=== PATIENT | male | born 1930 | race Caucasian/White ===

== ENCOUNTER 2017-03-30 08:00 | Inpatient (IN) | payer MEDICARE, OTHER ==
[~2017-03-30] VITALS: Ht 182.9 cm; Wt 98.9 kg
[~2017-03-30 08:00] MED LIST: AMLODIPINE BESYL5 MG PO; ATENOLOL50 MG PO; FUROSEMIDE20 MG PO; ISOSORBIDE MONO60 MG PO; POTASSIUM CHLO10 MEQ PO; RAMIPRIL10 MG PO
--- OUTSIDE RECORDS SUMMARY | 2017-03-30 08:04 | XMS | Clinical Summary ---
Demographics + + + | Address | [address] | | | [place] [address] | + + + | Home Phone | | + + + | Preferred Language | Unknown | + + + | Marital Status | | + + + | Methodist Affiliation | NON | + + + | Race | White | + + + | Ethnic Group | Not or | + + + Author + + + | Author | [facility] | + + + | Organization | [facility] | + + + | Address | Unknown | + + + | Phone | Unavailable | + + + Support +------+ + + + +-------+ | Name | Relationship | Address | Phone | +------+ + + + +-------+ ECON | [address] | | [place] | [address] | +------+ + + + +-------+ Care Team Providers + +------+-------+ | Care Almond Grinder Name | Role | Phone | + +------+-------+ | Asael Mendez MD | PP | tel | + +------+-------+ Source Comments JENNIFER is fully live on both EpicCare Ambulatory and EpicCare InPatient.[facility] Allergies + + + + + + | Active Allergy | Reactions | Severity | Noted | Comments | | | | | Date | | + + + + + + | Doxazosin Mesylate | Unknown | | 06/02/19 | Pt does not recall | | | | | 16 | | + + + + + + | Wyrpfli-Wrc-Lvk | Arthralgia | | 06/02/19 | | | Reductase Inhibitors | | | 16 | | + + + + + + | Tetracycline | Unknown | | 06/02/19 | Blisters | | | | | 16 | | + + + + + + | Tomato | Unknown | | 06/02/19 | Blisters | | | | | 16 | | + + + + + + Current Medications + + +---------+---------+------+------+-------+ | Prescription | Sig. | Disp. | Refills | Star | End | Statu | | | | | | t | Date | s | | | | | | Date | | | + + +---------+---------+------+------+-------+ | atenolol 50 mg | Take 50 mg by mouth | | 0 | 02/1 | | Activ | | oral tablet | two times daily. | | | 20 | | e | | | | | | 16 | | | + + +---------+---------+------+------+-------+ | furosemide 20 mg | Take 20 mg by mouth | | 0 | 01/0 | | Activ | | oral tablet | once daily. | | | 20 | | e | | | | | | 16 | | | + + +---------+---------+------+------+-------+ | potassium chloride | Take 10 mEq by mouth | | 0 | 03/0 | | Activ | | SR 10 mEq oral | once daily. | | | /20 | | e | | capsule, extended | | | | 16 | | | | release | | | | | | | + + +---------+---------+------+------+-------+ | amLODIPine 5 mg | Take 10 mg by mouth | | 0 | 03/1 | | Activ | | oral tablet | once daily. | | | 5/20 | | e | | | | | | 16 | | | + + +---------+---------+------+------+-------+ | ramipril 10 mg | Take 10 mg by mouth | | | | | Activ | | oral capsule | once daily. | | | | | e | + + +---------+---------+------+------+-------+ | ISOSORBIDE ORAL | Take 60 mg by mouth | | | | | Activ | | | once daily. | | | | | e | + + +---------+---------+------+------+-------+ | aspirin EC 81 mg | Take 81 mg by mouth | | | | | Activ | | oral tablet,delayed | once daily. | | | | | e | | release (DR/EC) | | | | | | | + + +---------+---------+------+------+-------+ | nitroglycerin 0.4 | Place 0.4 mg under | | | | | Activ | | mg sublingual | tongue every five | | | | | e | | tablet, sublingual | minutes as needed | | | | | | | | for chest pain. | | | | | | | | Place under tongue | | | | | | | | and allow to | | | | | | | | dissolve. | | | | | | | | Administer every 5 | | | | | | | | minutes, max of 3 | | | | | | | | doses in 15 minutes. | | | | | | + + +---------+---------+------+------+-------+ | omeprazole 20 mg | Take 1 capsule by | | | 03/2 | | Activ | | oral capsule,delayed | mouth. | | | 2/20 | | e | | release(DR/EC) | | | | 16 | | | + + +---------+---------+------+------+-------+ | oxyCODONE, | Take 1 to 2 tablets | 30 | 0 | 04/0 | | Activ | | immediate release, 5 | by mouth every six | tablet | | 9/20 | | e | | mg oral tablet | hours as needed. | | | 16 | | | + + +---------+---------+------+------+-------+ | docusate sodium | Take 1 capsule by | 60 | 0 | 04/0 | | Activ | | (COLACE) 100 mg oral | mouth two times | capsule | | / | | e | | capsule | daily. Please | | | 16 | | | | | continue to take | | | | | | | | this while on | | | | | | | | narcotic pain | | | | | | | | medications to help | | | | | | | | prevent | | | | | | | | constipationPlease | | | | | | | | hold for loose | | | | | | | | stools | | | | | | + + +---------+---------+------+------+-------+ Active Problems + + + | Problem | Noted Date | + + + | Melanoma of scalp (HCC) | 06/02/2015 | + + + Family History + + +------+ + | Medical History | Relation | Name | Comments | + + +------+ + | Cancer | Daughter | | colon | + + +------+ + | Cancer | Father | | | + + +------+ + | Asthma | Grandchil | | | | | d | | | + + +------+ + | Asthma | Grandchil | | | | | d | | | + + +------+ + | Cancer | Maternal | | | | | Aunt | | | + + +------+ + | Diabetes | Maternal | | | | | Cousin | | | + + +------+ + | Diabetes | Maternal | | | | | Grandfath | | | | | er | | | + + +------+ + | Stroke | Maternal | | | | | Grandfath | | | | | er | | | + + +------+ + | Heart Disease | Maternal | | | | | Grandmoth | | | | | er | | | + + +------+ + | Cancer | Mother | | | + + +------+ + | Cancer | Paternal | | | | | Cousin | | | + + +------+ + + +------+--------+ + | Relation | Name | Status | Comments | + +------+--------+ + | Daughter | | | | + +------+--------+ + | Father | | | | + +------+--------+ + | Grandchild | | | | + +------+--------+ + | Grandchild | | | | + +------+--------+ + | Maternal Aunt | | | | + +------+--------+ + | Maternal Cousin | | | | + +------+--------+ + | Maternal Grandfather | | | | + +------+--------+ + | Maternal Grandmother | | | | + +------+--------+ + | Mother | | | | + +------+--------+ + | Paternal Cousin | | | | + +------+--------+ + Social History + + + +--------+ + | Tobacco Use | Types | Packs/Day | Years | Date | | | | | Used | | + + + +--------+ + | Former Smoker | Cigarettes | 2 | | Quit: 06/01/1956 | + + + +--------+ + + +---+---+ + | Smokeless Tobacco: | | | Quit: | | Former User | | | 03/13/18 | | | | | 65 | + +---+---+ + + + | Comments: 1/2 can/day | + + + + +---------+ + | Alcohol Use | Drinks/We | oz/Week | Comments | | | ek | | | + + +---------+ + | Yes | 1 | 0.6 | | | | Standard | | | | | drinks or | | | | | | | | | | equivalen | | | | | t | | | + + +---------+ + + + + | Sex Assigned at | Date Recorded | | | | + + + | Not on file | | + + + Last Filed Vital Signs + + + + | Vital Sign | Reading | Time Taken | + + + + | Blood Pressure | 152/72 | 06/30/2015 12:59 PM PDT | + + + + | Pulse | 55 | 06/30/2015 12:59 PM PDT | + + + + | Temperature | 36.5 C (97.7 F) | 06/30/2015 12:59 PM PDT | + + + + | Respiratory Rate | 16 | 06/30/2015 12:59 PM PDT | + + + + | Oxygen Saturation | 92% | 06/20/2015 8:37 AM PDT | + + + + | Inhaled Oxygen | - | - | | Concentration | | | + + + + | Weight | 104.3 kg (230 lb) | 06/30/2015 12:59 PM PDT | + + + + | Height | 177.8 cm (5' 10") | 06/02/2015 4:05 PM PDT | + + + + | Body Mass Index | 33 | 06/30/2015 12:59 PM PDT | + + + + Plan of Treatment + + + + + | Health Maintenance | Due Date | Last Done | Comments | + + + + + | INFLUENZA VACCINE | | 01/02/2015, 12/14/2013, | | | (FLU SHOT) | 7 | 01/06/2010, Additional history | | | | | exists | | + + + + + Results Not on filefrom Last 3 Months
--- OUTSIDE RECORDS SUMMARY | 2017-03-30 08:04 | XMS | Clinical Summary ---
Demographics + + + | Address | [address] | | | [place] [address] | + + + | Home Phone | | + + + | Preferred Language | Unknown | + + + | Marital Status | | + + + | Anglican Affiliation | NON | + + + | Race | White | + + + | Ethnic Group | Not or | + + + Author + + + | Author | [facility] | + + + | Organization | [facility] | + + + | Address | Unknown | + + + | Phone | Unavailable | + + + Support +------+ + + + +-------+ | Name | Relationship | Address | Phone | +------+ + + + +-------+ ECON | [address] | | [place] | [address] | +------+ + + + +-------+ Care Team Providers + +------+-------+ | Care Supervisor In Charge Name | Role | Phone | + +------+-------+ | Asael Mendez MD | PP | tel | + +------+-------+ Source Comments JENNIFER is fully live on both EpicCare Ambulatory and EpicCare InPatient.[facility] Allergies + + + + + + | Active Allergy | Reactions | Severity | Noted | Comments | | | | | Date | | + + + + + + | Doxazosin Mesylate | Unknown | | 06/02/19 | Pt does not recall | | | | | 16 | | + + + + + + | Niascyf-Vyl-Usw | Arthralgia | | 06/02/19 | | [...]
[2017-03-30] MEDS ORDERED: ALTACE10 MG PO (08:30)
[2017-03-30] MEDS ORDERED: ECOTRIN325 MG PO (08:30)
--- OUTSIDE RECORDS SUMMARY | 2017-03-30 10:28 | XMS | Clinical Summary ---
Demographics + + + | Address | [address] | | | [place] [address] | + + + | Home Phone | | + + + | Preferred Language | Unknown | + + + | Marital Status | | + + + | Denominational Affiliation | NON | + + + | Race | White | + + + | Ethnic Group | Not or | + + + Author + + + | Author | [facility] | + + + | Organization | [facility] | + + + | Address | Unknown | + + + | Phone | Unavailable | + + + Support +------+ + + + +-------+ | Name | Relationship | Address | Phone | +------+ + + + +-------+ ECON | [address] | | [place] | [address] | +------+ + + + +-------+ Care Team Providers + +------+-------+ | Care Marketing Technology Specialist Name | Role | Phone | + +------+-------+ | Asael Mendez MD | PP | tel | + +------+-------+ Source Comments JENNIFER is fully live on both EpicCare Ambulatory and EpicCare InPatient.[facility] Allergies + + + + + + | Active Allergy | Reactions | Severity | Noted | Comments | | | | | Date | | + + + + + + | Doxazosin Mesylate | Unknown | | 06/02/19 | Pt does not recall | | | | | 16 | | + + + + + + | Tdowzqp-Fvi-Kiq | Arthralgia | | 06/02/19 | | [...]
[2017-03-30] MEDS ORDERED: ISOSORBIDE MONO30 MG PO (10:35)
[2017-03-30] MEDS ORDERED: NITROGLYCERIN0.4 MG SL (10:36)
[2017-03-30] MEDS ORDERED: ASPIRIN EC81 MG PO (10:40)
[2017-03-30] MEDS ORDERED: AMLODIPINE BESY10 MG PO (10:40)
--- NOTE | 2017-03-30 10:42 | NUR ---
MED REC COMPLETE WITH PHARMACY REFILL HISTORY.
--- NOTE | 2017-03-30 11:06 | NUR ---
PATIENT ADMITTED TO ROOM 122 ON OXYGEN AT 2L PER NASAL CANNULA. PATIENT ASSISTED UP TO THE BATHROOM AND VOIDED 300 MLS OF CLEAR YELLOW URINE. HE IS STEADY ON HIS FEET AND WAS NOT SOB WHEN UP TO THE BATHROOM. HE IS ORIENTED TO HIS ROOM AND ASSESSMENT COMPLETED BY THE RN AT THIS TIME. TELE PLACED ON THE PATIENT AND VITALS TAKEN. LUNCH ORDERED AND HOB ELEVATED. PULSE OX APPLIED. NO OPEN LESIONS FROM SHINGLES NOTED.
--- NOTE | 2017-03-30 13:18 | NUR ---
PATIENT'S OXYGEN INCREASED TO 3L PER NASAL CANNULA O2 SATURATIONS WAS RUNNING AT 96% ON 2L PER NC.
--- NOTE | 2017-03-30 13:50 | NUR ---
PT IS RESTING IN BED SAFELY WITH CALL LIGHT IN REACH AND EYES CLOSED, RESPERATIONS EVEN. PT WOKE UP FOR VITALS, ASKED FOR LIGHTS TO BE TURNED OFF, THEN FELL BACK ASLEEP.
--- NOTE | 2017-03-30 14:25 | NUR ---
O2 SATS 83% ON 3L OF OXYGEN, PATIENT'S OXYGEN IS INCREASED TO 4L OF OXYGEN AT THIS TIME.
--- NOTE | 2017-03-30 15:36 | NUR ---
PATIENT'S O2 SATS ARE 87% ON 4L OF OXYGEN PATIENT USES A CPAP WHILE ASLEEP AT NIGHT, HE IS CURRENTLY ASLEEP WITH HOB ELEVATED. RT NOTIFIED. LUNGS ARE CLEAR.
--- NOTE | 2017-03-30 17:53 | NUR ---
PT IS RESTING IN BED SAFELY WITH CALL LIGHT IN REACH. PT FINISHED DINNER AND ASKED FOR TRAY TO BE TAKEN AWAY. PT DID NOT NEED ANYTHING ELSE AT THE MOMENT
--- NOTE | 2017-03-30 18:10 | NUR ---
PATIENT WAS ADMITTED FROM ER THIS AM WITH HYPOXIA. HE WAS INITIALLY ADMITTED ON 2L OX OXYGEN BUT AFTER FALLING ASLEEP HIS NASAL CANNULA WAS INCREASED TO 4L DUE TO HISTORY OF SLEEP APNEA. HIS HAD SURGERY TODAY AT THIS FACILITY AND COULDN'T BRING IN HIS CPAP MACHINE SO RT WAS NOTIFIED AND WILL BRING A BIPAP MACHINE FOR HIM TO WEAR TONIGHT. HIS LUNGS ARE CLEAR AND HE GETS SOB WITH EXERTION. HE IS ALERT AND ORIENTED AND STEADY ON HIS FEET.
--- NOTE | 2017-03-30 20:00 | NUR ---
RECEIVED REPORT AT 1900, FOUND PT IN BED RESTING. PT HAD NO CONCERNS OR NEEDS AT THAT TIME.
--- NOTE | 2017-03-30 22:00 | NUR ---
V/S ARE WDL, ALL LOBES ARE CLEAR. PT O2 SATS HAVE BEEN STEADLY DECLINING SINCE ARRIVAL ON THE FLOOR. PT NOW IS ON 5L OF OW NC. PT DENIES SOB OR CHEST PAIN. BG WAS 184 AND PT RECEIVED 3 UNITS OF NOVOLOG. PT NOW IS ON C-PAP AND RESTING IN BED.
--- NOTE | 2017-03-31 00:30 | NUR ---
PT DENIES CHEST PAIN AND SOB. C-PAP IS ON. PT IS TRYING TO SLEEP AGAIN.
--- NOTE | 2017-03-31 02:34 | NUR ---
VITALS AND I&OS DONE AND CHARTED. PT NEEDS NOTHING ELSE AT THIS TIME. BEDSIDE TABLE AND CALL LIGHT WITHIN REACH.
--- NOTE | 2017-03-31 02:53 | NUR ---
PT IS SLEEPING. HR RATE IS SINUS DHRUV. UPPER 40'S.
--- NOTE | 2017-03-31 04:31 | NUR ---
PT IS SLEEPING AT THIS TIME.
--- NOTE | 2017-03-31 06:05 | NUR ---
V/S SO FAR HAVE BEEN WDL. PT AT START OF SHIFT O2 SATS KEPT DECREASING AND HE WAS PUT ON 5L OF O2 IN ORDER TO STAY ABOVE 90% SATS. MD HAWKINS IS AWARE. PT HAS BEEN USING C-PAP ALL NIGHT. ALL LOBES HAVE BEEN CLEAR. PT DENIES ANY PAIN. NO OTHER ISSUES NOTED SO FAR THIS SHIFT.
--- NOTE | 2017-03-31 07:17 | EKG ---
[facility] [address] [place] [address] Signed Sinus rhythm with 1st degree AV block Otherwise normal ECG When compared with ECG of 25-NOV-2015 10:14, premature ventricular complexes are no longer present Vent. rate has increased BY 28 BPM Confirmed by NIKITA BARTON MD ([id number]) on 03/31/2017 7:17:20 AM Electronically Signed By: NIKITA BARTON MD 03/31/17 0717 PATIENT NAME: KEVIN MALDONADO Electrocardiogram DATE OF : 30 PHYSICIAN: NIKITA BARTON MD REPORT #: [id number] REPORT IS CONFIDENTIAL AND NOT TO BE RELEASED WITHOUT AUTHORIZATION
--- NOTE | 2017-03-31 07:19 | EKG ---
[facility] [address] [place], [place] [address] Signed Sinus rhythm with 1st degree AV block Otherwise normal ECG When compared with ECG of 30-MAR-2017 08:10, (Unconfirmed) No significant change was found Confirmed by NIKITA BARTON MD ([id number]) on 03/31/2017 7:19:15 AM Electronically Signed By: NIKITA BARTON MD 03/31/17718 PATIENT NAME: KEVIN MALDONADO GLENDA Electrocardiogram DATE OF : 30 PHYSICIAN: NIKITA BARTON MD REPORT #: [id number] REPORT IS CONFIDENTIAL AND NOT TO BE RELEASED WITHOUT AUTHORIZATION
--- NOTE | 2017-03-31 07:28 | NUR ---
PATIENT TAKEN OFF THE BIPAP AT THIS TIME AND PLACED BACK ON 5L OF OXYGEN. PATIENT IS ALERT AND ORIENTED. DENIES ANY PAIN OR NEEDS AT THIS TIME. REPORT RECEIVED FROM AMARILIS HOWARD AT THIS TIME.
--- NOTE | 2017-03-31 08:01 | NUR ---
PT IS SITTING UP IN BED WAITING FOR HIS BLOOD SUGAR TO BE CHAECKED. CNA2 EUNICE CHECKED BLOOD SUGAR, AND PT IS NOW SITTING IN BED EATING HIS BREAKFAST.
--- NOTE | 2017-03-31 08:30 | NUR ---
PATIENT'S ACCUCHECK DONE AND HE IS SITTING UP IN THE ROOM EATING HIS BREAKFAST. AM MEDICATION GIVEN AND ASSESSMENT COMPLETED. PATIENT DENIES ANY PAIN AT THIS TIME AND REMAINS ON OXYGEN AT 2L PER NC AT THIS TIME.
--- NOTE | 2017-03-31 09:32 | NUR ---
PT IS RESTING IN BED SAFLEY WITH CALL LIGHT IN REACH. PT ASKED FOR MORE ICE WATER
--- NOTE | 2017-03-31 10:00 | NUR ---
PATIENT'S OXYGEN INCREASED TO 4L PER NC AT THIS TIME. PATIENT'S O2 AT 4L IS NOW AT 89%
--- NOTE | 2017-03-31 11:30 | NUR ---
PATIENT'S ACCUCHECK DONE AND 1 UNIT OF INSULIN GIVEN SQ. PATIENT'S FAMILY VISITING AT THIS TIME. LUNCH TO THE PATIENT AT THIS TIME.
--- NOTE | 2017-03-31 13:04 | NUR ---
PT SHAVED, SHOWERED, AND BRUSHED TEETH ALL BY SELF. PT IS NOW SITTING UP IN CHAIR SAFELY WITH CALL LIGHT IN REACH. PT ASKED FOR CLEAN SOCKS
--- NOTE | 2017-03-31 13:04 | NUR ---
PATIENT UP TO THE SHOWER WITH COMPUTER ENGINEERING TECHNOLOGIST
--- NOTE | 2017-03-31 13:36 | NUR ---
PATIENT RESTING IN THE BED. PATIENT'S O2 INCREASED TO 4L PER NC AT THIS TIME. O2 SAT ON THE 4L UP TO 89% RT NOTIFIED.
--- NOTE | 2017-03-31 14:12 | NUR ---
PT IS RESTING IN BED SAFELY WITH CALL LIGHT IN REACH. PT ASKED FOR LIGHTS TO BE TURNED OF SO HE COULD TAKE A NAP
--- NOTE | 2017-03-31 14:57 | NUR ---
PATIENT CURRENTLY DENIES ANY SOB, HE REMAINS ON OXYGEN AT 4L PER NC. SATS ARE 93% AT THIS TIME.
--- NOTE | 2017-03-31 18:00 | NUR ---
PT IS RESTING IN BED SAFELY WITH CALL LIGHT IN REACH. PT ASKED FOR DINNER TRAY TO BE TAKEN AWAY.
--- NOTE | 2017-03-31 19:15 | NUR ---
BEDSIDE REPORT RECEIVED FROM ANITA HANSEN, PT ON 4L OXYGEN BY NASAL CANNULA, LYING IN BED. PT ON TELE 7. IV SALINE LOCKED. NO REQUESTS AT THIS TIME. CALL LIGHT NEXT TO PT.
--- NOTE | 2017-03-31 20:16 | NUR ---
RN UPDATED WHITEBOARD
--- NOTE | 2017-03-31 20:47 | NUR ---
PT ASSESSMENT COMPLETE, LUNGS CLEAR THROUGHOUT ALL LOBES, PT RECEIVED BREATHING TREATMENT FROM RT, NOW ON BIPAP AT 45% OXYGEN. HR SINUS BRADYCARDIA ON TELE 7. BOWEL TONES ACTIVE X 4. TINGLING NOTED BILATERALLY IN FEET. VITALS COMPLETE AT THIS TIME, TEMPERATURE 99.0, PT ENCOURAGED TO USE INCENTIVE SPIROMETER. PT COUGHING, STATES PRODUCTIVE SOMETIMES. ADMINISTERED 1 UNIT NOVOLOG FOR CBG 158. PT ALERT AND ORIENTED, CALL LIGHT IN REACH, URINAL EMPTIED. LIGHTS OFF IN ROOM.
--- NOTE | 2017-03-31 23:12 | NUR ---
DI HERE TO TAKE PT FOR A CT SCAN. PT ON 4L/NC. PROCEDURE EXPLAINED, PT COOPERATIVE. PT TAKEN VIA W/C W O2
--- NOTE | 2017-03-31 23:18 | NUR ---
PT OUT OF ROOM, WITH IMAGING FOR CT.
--- NOTE | 2017-03-31 23:30 | NUR ---
PT BACK IN ROOM, ON 4L OXYGEN BY NASAL CANNULA SPO2 92%, PT DOES NOT WANT TO USE THE CPAP AT THIS TIME, HR 63. PT GIVEN CALL LIGHT, LIGHTS OFF IN ROOM.
--- NOTE | 2017-03-31 23:46 | NUR ---
PHONE CALL FROM DR. SANFORD, STATES PT HAS PE, WILL START ON 100 MG LOVENOX BID.
--- NOTE | 2017-04-01 00:02 | NUR ---
ADMINISTERED LOVENOX 100 MG, PROVIDED EDUCATION TO PT ON PE, PREVENTING BLOOD CLOTS. PT ON 4L OXYGEN BY NASAL CANNULA, 95% SPO2, HR 57. URINAL EMPTIED, 200 ML CLEAR YELLOW URINE. PT HAS CALL LIGHT IN REACH, WILL CONTINUE TO MONITOR.
--- NOTE | 2017-04-01 00:42 | NUR ---
IN PT ROOM FOR ASSESSMENT, PT DOES COMPLAIN OF SOME SOB, REQUESTING BREATHING TREATMENT. PTS LUNGS SOUND CLEAR THROUGHOUT ALL LOBES, DIMINISHED WITH NORMAL BREATHS, CLEAR ENTRY WITH DEEP BREATHING THROUGHOUT ALL LOBES. IVF INFUSING AT THIS TIME WNL AT 125 ML/HR, LINE FLUSHES WELL. BOWEL TONES ACTIVE X 4, ABDOMEN SOFT. PT CONTINUES IN SINUS BRADYCARDIA HR 59 ON TELE 7. CALL LIGHT IN REACH, LIGHTS OFF IN ROOM.
--- NOTE | 2017-04-01 00:57 | NUR ---
RT IN PT ROOM FOR BREATHING TREATMENT.
--- NOTE | 2017-04-01 02:30 | NUR ---
CHECKED ON PT, PT SPO2 86% ON 4L HUMIDIFIED OXYGEN BY NC. PT SPO2 88% ON AWAKENING. PT REFUSES TO USE HOSPITALS BIPAP MACHINE DESPITE EDUCATION. PHONE CALL TO RT CL, INSTRUCTED TO PUT PT ON OXYMASK, PT CONTINUES 88% WITH OXYMASK. INCREASED SPO2 TO 6L HUMIDIFIED, PT AT 90% OXYGEN, RT CL INSTRUCTED TO PLACE PT ON NON-HUMIDIFIED OXYGEN AT 6L BY OXYMASK, PT NOW SATURATING 92% ON 6L OXYMASK.
--- NOTE | 2017-04-01 03:29 | NUR ---
RN IN ROOM
--- NOTE | 2017-04-01 03:40 | NUR ---
DR. SANFORD UPDATED VIA TELEPHONE REGARDING PT'S TITRATION OF OXYGEN, REFUSAL TO WEAR BIPAP. ORDER TO TITRATE OXYGEN >90%, TO RECHECK SATURATION WITH DIFFERENT PROBE. TRINH HERNANDEZ CHECKED SPO2 WITH ALTERNATIVE OXYGEN PROBE, 91% ON 6L OXYMASK.
--- NOTE | 2017-04-01 04:56 | NUR ---
PT IS SLEEPING AT THIS TIME, EYES CLOSED SPO2 91% ON 6L BY OXYMASK. BREATHING IS NON-LABORED, EQUAL CHEST RISE BILATERALLY, HR 50. LIGHTS OFF IN ROOM.
--- NOTE | 2017-04-01 06:49 | NUR ---
PT SLEEPING, BREATHING IS NON-LABORED, SPO2 90% ON 6L BY OXYMASK. PT ALLOWED TO SLEEP HAS NOT SLEPT MUCH THROUGHOUT SHIFT. HR IS 56 AT THIS TIME, ON TELE 7. LIGHTS OFF IN ROOM.
--- NOTE | 2017-04-01 10:17 | NUR ---
PT IS RESTING IN BED SAFELY WITH CALL LIGHT IN REACH. PT ASKED TO SHOWER AFTER LUNCH
[2017-04-01] MEDS ORDERED: ELIQUIS5 MG PO (13:10)
--- NOTE | 2017-04-01 15:21 | NUR ---
PT SHOWERED WITH NO ASSISTANCE, TRINH ANDERSON CHANGED LINENS. PT WALKED ONE FULL LAP, ACCOMPANIED BY TRINH ANDERSON. PT IS NOW BACK IN BED WITH CALL LIGHT IN REACH
--- NOTE | 2017-04-01 18:02 | NUR ---
sob improved - denies pain, o2 2l nc. PE - meds changed to eloquis po. pt amb in [facility] with 02 if. aox3 plan for mon/ d/c to home.
--- NOTE | 2017-04-01 18:25 | NUR ---
PT IS RESTING IN BED SAFELY WITH CALL LIGHT IN REACH. PT DID NOT NEED ANYTHING AT THE MOMENT
--- NOTE | 2017-04-01 21:36 | NUR ---
PATIENT RESTING COMFORTABLY IN BED, BREATHING IS EVEN AND UNLABORED. DENIES NEEDS AT THIS TIME. O2 SATURATION IS 91% ON CPAP WITH 2L O2. ASSESSMENT DONE, MEDICATIONS GIVEN. CALL LIGHT WITHIN REACH.
--- NOTE | 2017-04-02 00:54 | NUR ---
PATIENT RESTING COMFORTABLY IN BED, BREATHING IS EVEN AND UNLABORED. O2 SATURATION IS 95% ON CPAP, PULSE IS 58. CALL LIGHT WITHIN REACH.
--- NOTE | 2017-04-02 02:55 | NUR ---
PATIENT RESTING COMFORTABLY IN BED, BREATHING IS EVEN AND UNLABORED. O2 SATURATION IS 92% ON CPAP, 2L O2. PULSE IS 59. CALL LIGHT WITHIN REACH.
--- NOTE | 2017-04-02 05:05 | NUR ---
PATIENT RESTING COMFORTABLY IN BED, BREATHING IS EVEN AND UNLABORED. O2 SATURATION IS 91% ON 2L VIA CPAP. DENIES NEEDS AT THIS TIME. VITALS/I&O DONE. CALL LIGHT WITHIN REACH.
--- NOTE | 2017-04-02 05:09 | NUR ---
PATIENT'S NIGHT WAS UNEVENTFUL. HE HAS BEEN RESTING COMFORTABLY IN BED THROUGHOUT SHIFT. VSS, URINE OUTPUT QS. NO COMPLAINTS OF PAIN. REQUIRES 2L O2 WITH CPAP AT NIGHT TO MAINTAIN SATURATIONS >90%. PATIENT IS 1PA, IV IS SALINE LOCKED. NO ACUTE CHANGES FROM BEGINNING OF SHIFT.
--- NOTE | 2017-04-02 07:03 | NUR ---
bedside report from [facility] rn. pt denies needs, rested well with home cpap on in night. 02 2l nc sats above 90.
--- NOTE | 2017-04-02 08:31 | NUR ---
PATIENT UP EATING HIS BREAKFAST ON THE SIDE OF HIS BED. SET HIM FOR A SHOWER LATER.
--- NOTE | 2017-04-02 09:14 | NUR ---
PT NEEDED HIS ARM WRAPPED BEFORE HE TOOK A SHOWER.
--- NOTE | 2017-04-02 09:31 | NUR ---
pt up in at this time - meds delayed.
--- NOTE | 2017-04-02 10:43 | NUR ---
PT UP IN AFTER SHOWER - DENIES NEEDS. BREATHING UNLABORED, DENIES PAIN.
--- NOTE | 2017-04-02 11:49 | NUR ---
in pt room with Dr. Alcantara - and pt and his son. Discussed dc with new med and home o2.
[2017-04-02] MEDS ORDERED: ELIQUIS5 MG PO (12:04)
--- NOTE | 2017-04-02 14:50 | NUR ---
pt reported had the flu shot at [facility] and admission notes reflect that.
== END 2017-04-02 14:25 | disposition home or self-care (01) | DRG 175 ==
LOC: ED 08:00 → MS 08:02
PROVIDERS: ADMIT Internal Medicine
DX: I26.92 Saddle embolus of pulmonary artery without acute cor pulmonale (principal); J96.01 Acute respiratory failure with hypoxia; I51.89 Other ill-defined heart diseases; R73.03 Prediabetes; I25.10 Atherosclerotic heart disease of native coronary artery without angina pectoris; I12.9 Hypertensive chronic kidney disease with stage 1 through stage 4 chronic kidney disease, or unspecified chronic kidney disease; N18.9 Chronic kidney disease, unspecified; G47.33 Obstructive sleep apnea (adult) (pediatric); Z95.5 Presence of coronary angioplasty implant and graft; Z87.891 Personal history of nicotine dependence; Z85.828 Personal history of other malignant neoplasm of skin; Z79.82 Long term (current) use of aspirin; Z79.899 Other long term (current) drug therapy; Z88.1 Allergy status to other antibiotic agents; Z88.0 Allergy status to penicillin
CPT/HCPCS: 36415; 71045; 71260; 80048; 80053; 80069; 81001; 83880; 84484; 85025; 85379; 85610; 85651; 93005; 93010; 94640; 94660; 94761; 94762; 96372; 99285; G0378; J1650; J7120; Q9967

== ENCOUNTER 2018-07-08 19:47 | Emergency (ER) | payer MEDICARE, OTHER ==
[~2018-07-08] VITALS: Ht 182.9 cm; Wt 103.0 kg
--- OUTSIDE RECORDS SUMMARY | ~2018-07-08 | XMS | Clinical Summary ---
Demographics + + + | Address | [address] | | | [place] [address] | + + + | Home Phone | | + + + | Preferred Language | Unknown | + + + | Marital Status | | + + + | Latter Day Affiliation | NON | + + + | Race | White | + + + | Ethnic Group | Not or | + + + Author + + + | Author | [facility] | + + + | Organization | [facility] | + + + | Address | Unknown | + + + | Phone | Unavailable | + + + Support + + + + + | Name | Relationship | Address | Phone | + + + + + | BLAIR DOUGLASS | ECON | [address] | | | | | [place] | | | | | [address] | | + + + + + Care Team Providers + +------+ + | Care Pesticide Applicator Name | Role | Phone | + +------+ + | Asael Mendez MD | PP | | + +------+ + Source Comments JENNIFER is fully live on both [facility] and [facility]Patient.[facility] Allergies + + + + + + | Active Allergy | Reactions | Severity | Noted | Comments | | | | | Date | | + + + + + + | Doxazosin Mesylate | Unknown | | 06/02/19 | Pt does not recall | | | | | 16 | | + + + + + + | Xqheqxf-Xmy-Prw | Arthralgia | | 06/02/19 | | [...] | two times daily. | | | 11/30 | | e | | | | [...] oral | once daily. | | | 20 | | e | | capsule, extended [...] mouth two times | capsule | | 11/30 | | e | | capsule | [...] | + + + + + | Pneumococcal (Adult) | | | | | (1 of 2 - PCV13) | 6 | | | + + + + + | Influenza (Flu) | | | | | vaccination (#1) | 8 | | | + + + + + Results Not on filefrom Last 3 Months Insurance + +--------+ +--------+ + + | Payer | Benefi | Subscriber | Type | Phone | Address | | | t Plan | ID | | | | | | / | | | | | | | Group | | | | | + +--------+ +--------+ + + | MEDICARE | MEDICA | xxxxxxxxxx | Medica | [phone]- | [address] | | | RE A & | | re | [address] | [place] [address] | | | B | | | | | + +--------+ +--------+ + + | MODA MEDICARE | MODA | xxxxxxxxx | POS | +1- | [address] [address] | | SUPPLEMENT | MEDICA | | | [phone] | [place] [address] | | | RE | | | | | | | SUPPLE | | | | | | | MENT | | | | | + +--------+ +--------+ + + + +--------+ +--------+ + + | Guarantor Name | Accoun | Relation to | Date | Phone | Billing Address | | | t Type | Patient | of | | | | | | | | | | + +--------+ +--------+ + + | STAN DOUGLASS | Person | Self [birth year] | Work: | [address] | | | [address] | | 1931 | +- | [place] [address] | | | janet | | | [phone] Home: | | | | | | | | | | | | | | +- | | | | | | | [phone] | | + +--------+ +--------+ + +
--- OUTSIDE RECORDS SUMMARY | ~2018-07-08 | XMS | Clinical Summary ---
Demographics + + + | Address | [address] | | | [place] [address] | + + + | Home Phone | | + + + | Preferred Language | Unknown | + + + | Marital Status | | + + + | Sikhism Affiliation | 1069 | + + + | Race | Unknown | + + + | Ethnic Group | Unknown | + + + Author + + + | Author | [facility] | + + + | Organization | [facility] | + + + | Address | Unknown | + + + | Phone | Unavailable | + + + Support + + + + + | Name | Relationship | Address | Phone | + + + + + | Mikki Douglass | ECON | [place] | | | | | [address] | | + + + + + | Jameel Douglass | ECON | Unknown | | + + + + + Care Team Providers + +------+ + | Care Steamer Operator Name | Role | Phone | + +------+ + | Rosanne White | PP | | + +------+ + Allergies + + + + + + | Active Allergy | Reactions | Severity | Noted | Comments | | | | | Date | | + + + + + + | Doxazosin | Other (See Comments) | Medium | 11/25/19 | Unsure of | | | | | 16 | reaction, "has been | | | | | | a long time" | + + + + + + | Penicillin G | Other (See Comments) | Medium | 11/25/19 | Unknown | | | | | 16 | | + + + + + + | Penicillins | Other (See Comments) | Medium | 11/25/19 | Not known at this | | | | | 16 | time | + + + + + + | Statins | Other (See Comments) | Medium | 11/25/19 | Pain, unableto | | | | | 16 | tolerate | + + + + + + | Tetracycline | Other (See Comments) | Medium | 11/25/19 | Unknown | | | | | 16 | | + + + + + + | Tomato | Other (See Comments) | Medium | 11/25/19 | Pt states he | | | | | 16 | breaks out in | | | | | | blisters | + + + + + + | Acetic Acid | Other (See Comments) | Medium | 11/25/19 | Pt reports he | | | | | 16 | breaks out in | | | | | | blisters | + + + + + + Current Medications + + +--------+---------+------+------+-------+ | Prescription | Sig. | Disp. | Refills | Star | End | Statu | | | | | | t | Date | s | | | | | | Date | | | + + +--------+---------+------+------+-------+ | ramipril (ALTACE) | Take 10 mg by mouth | | | | | Activ | | 10 MG capsule | daily. | | | | | e | + + +--------+---------+------+------+-------+ | furosemide (LASIX) | Take 20 mg by mouth | | | | | Activ | | 20 MG tablet | daily. | | | | | e | + + +--------+---------+------+------+-------+ | amLODIPine | Take 10 mg by mouth | | | | | Activ | | (NORVASC) 5 MG | daily. Takes 2 pills | | | | | e | | tablet | daily | | | | | | + + +--------+---------+------+------+-------+ | potassium chloride | Take 10 mEq by mouth | | | | | Activ | | (K-DUR) 10 MEQ | daily. | | | | | e | | tablet | | | | | | | + + +--------+---------+------+------+-------+ | omeprazole | Take 20 mg by mouth | | | | | Activ | | (PRILOSEC) 20 MG | every morning before | | | | | e | | capsule | breakfast. | | | | | | + + +--------+---------+------+------+-------+ | | Take 1 tablet by | | | | | Activ | | HYDROcodone-acetamin | mouth every 6 (six) | | | | | e | | ophen (NORCO) 5-325 | hours as needed for | | | | | | | MG per tablet | Pain. Only as needed | | | | | | + + +--------+---------+------+------+-------+ | hydrALAZINE | Take 1 tablet by | 90 | 1 | 11/11 | | Activ | | (APRESOLINE) 25 MG | mouth 3 (three) | tablet | | 5/20 | | e | | tablet | times daily. | | | 16 | | | + + +--------+---------+------+------+-------+ | atenolol | Take 50 mg by mouth | | 0 | 10/2 | | Activ | | (TENORMIN) 50 MG | daily. | | | 09/29 | | e | | tablet | | | | 17 | | | + + +--------+---------+------+------+-------+ | isosorbide | Take 30 mg by mouth | | | | | Activ | | mononitrate (IMDUR) | daily. | | | | | e | | 30 MG 24 hr tablet | | | | | | | + + +--------+---------+------+------+-------+ | ELIQUIS 5 MG | Take 5 mg by mouth 2 | | | 05/2 | | Activ | | tablet | (two) times daily. | | | 05/30 | | e | | | | | | 18 | | | + + +--------+---------+------+------+-------+ | aspirin 81 MG | Take 1 tablet by | 100 | 3 | 10/11 | 10/11 | Activ | | tablet | mouth daily. 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) | | + + + | Bradycardia, sinus | 11/25/2015 | + + + | Chronic kidney disease, stage III (moderate) | 11/25/2015 | + + + | S/P drug eluting coronary stent placement | 10/02/2003 | + + + + + | Overview: 3.0 x 20 Taxus ENZO mid LAD | + + + + + | S/p bare metal coronary artery stent | 10/20/2002 | + + + + + | Overview: prox LAD - overlapping 3.5x12, 3.5x9 Express 2 BMS; | | mid RCA - 4.0x16 Express 2 BMS | + + + +---+ | Stage III chronic kidney disease (HCC) | | + +---+ | Hyperlipidemia | | + +---+ + + | Overview: Intolerant of statins, Zetia | + + + +---+ | Secondary pulmonary arterial hypertension (HCC) | | + +---+ + + | Overview: Moderate, 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) | + + Resolved Problems + + + + | Problem | Noted | Resolved | | | Date | Date | + + + + | Precordial pain | 11/25/19 | | | | 16 | 6 | + + + + | Syncope and collapse | 11/25/19 | | | | 16 | 6 | + + + + Family History + + +------+ + | Medical History | Relation | Name | Comments | + + +------+ + | Cancer | Daughter | | | + + +------+ + | Cancer | Father | | | + + +------+ + | Kidney disease | Mother | | | + + +------+ + + +------+ + + | Relation | Name | Status | Comments | + +------+ + + | Daughter | | | colon CA | | | | (Age | | | | | 60) | | + +------+ + + | Daughter | | Alive | | + +------+ + + | Daughter | | Alive | | + +------+ + + | Father | | | prostate CA | | | | (Age | | | | | 91) | | + +------+ + + | Mother | | | renal failure | | | | (Age | | | | | 93) | | + +------+ + + | Sister | | Alive | | + +------+ + + | Son | | Alive | | + +------+ + + Social History + +-------+ +--------+ + | Tobacco Use | Types | Packs/Day | Years | Date | | | | | Used | | + +-------+ +--------+ + | Former Smoker | | 2 | 8 | Quit: 03/13/1956 | + +-------+ +--------+ + + +---+---+---+ | Smokeless Tobacco: | | | | | Never Used | | | | + +---+---+---+ + + +---------+ + | Alcohol Use | Drinks/We | oz/Week | Comments | | | ek | | | + + +---------+ + | Yes | | | once monthly | + + +---------+ + + + + | Sex Assigned at | Date Recorded | | | | + + + | Not on file | | + + + Last Filed Vital Signs + + + + | Vital Sign | Reading | Time Taken | + + + + | Blood Pressure | 134/72 | 02/06/2018 9:56 AM PST | + + + + | Pulse | 62 | 02/06/2018 9:56 AM PST | + + + + | Temperature | 36.7 C (98 F) | 11/26/2015 11:52 AM PDT | + + + + | Respiratory Rate | 18 | 02/06/2018 9:56 AM PST | + + + + | Oxygen Saturation | 97% | 02/06/2018 9:56 AM PST | + + + + | Inhaled Oxygen | - | - | | Concentration | | | + + + + | Weight | 101.7 kg (224 lb 4.8 | 02/06/2018 9:56 AM PST | | | oz) | | + + + + | Height | 182.9 cm (6') | 02/06/2018 9:56 AM PST | + + + + | Body Mass Index | 30.42 | 02/06/2018 9:56 AM PST | + + + + Plan of Treatment + + + + + | Health Maintenance | Due Date | Last Done | Comments | + + + + + | Vaccine: | | | | | Dtap/Tdap/Td (1 - | 0 | | | | Tdap) | | | | + + + + + | Vaccine: Zoster (1 | | | | | of 2) | 1 | | | + + + + + | Vaccine: | | | | | Pneumococcal 65+ | 6 | | | | Low/Medium Risk (1 | | | | | of 2 - PCV13) | | | | + + + + + | Vaccine: Influenza | | | | | (Season Ended) | 9 | | | + + + + + Results Not on filefrom Last 3 Months Insurance + +--------+ +------+-------+ + | Payer | Benefi | Subscriber | Type | Phone | Address | | | t Plan | ID | | | | | | / | | | | | | | Group | | | | | + +--------+ +------+-------+ + | MEDICARE | MEDICA | [id number] | | | [address] | | | RE | | | | [place] [phone] | | | IP-OP | | | | | + +--------+ +------+-------+ + | ODS HEALTH PLAN | ODS | [id number] | | | | | | HEALTH | | | | | | | PLAN | | | | | + +--------+ +------+-------+ + + +--------+ +--------+ + + | Guarantor Name | Accoun | Relation to | Date | Phone | Billing Address | | | t Type | Patient | of | | | | | | | | | | + +--------+ +--------+ + + | STAN DOUGLASS | Person | Self [birth year] | Home: | [address] | | | al/Fam | | 1931 | [phone] | [place] | | | janet | | | [phone] | [phone] | + +--------+ +--------+ + +
--- OUTSIDE RECORDS SUMMARY | ~2018-07-08 | XMS | Clinical Summary ---
Demographics + + + | Address | [address] | | | [place] [address] | + + + | Home Phone | | + + + | Preferred Language | Unknown | + + + | Marital Status | | + + + | Taoist Affiliation | 1069 | + + + | Race | Unknown | + + + | Ethnic Group | Unknown | + + + Author + + + | Author | [facility] | + + + | Organization | [facility] | + + + | Address | Unknown | + + + | Phone | Unavailable | + + + Support + + + + + | Name | Relationship | Address | Phone | + + + + + | Mikki Douglass | ECON | [place] | | | | | [address] | | + + + + + | Jameel Douglass | ECON | Unknown | | + + + + + Care Team Providers + +------+ + | Care Director Of Coding Name | Role | Phone | + [...] + + | Coronary artery disease involving modoc coronary artery with | 11/25/2015 | | [...] +------+-------+ + | MEDICARE | MEDICA | [id number] | | | [address] | | | RE | | | | [place] [phone] | | | IP-OP | | | | | + +--------+ +------+-------+ + | ODS HEALTH PLAN | ODS | [id number] | | | | | | HEALTH [...] | | | janet | | | [phone] | [phone] | + +--------+ +--------+ + +
--- OUTSIDE RECORDS SUMMARY | ~2018-07-08 | XMS | Clinical Summary ---
Demographics + + + | Address | [address] | | | [place] [address] | + + + | Home Phone | | + + + | Preferred Language | Unknown | + + + | Marital Status | | + + + | Temple Affiliation | 1069 | + + + | Race | Unknown | + + + | Ethnic Group | Unknown | + + + Author + + + | Author | [facility] | | | and [place] | + + + | Organization | [facility] | | | and [place] | + + + | Address | Unknown | + + + | Phone | Unavailable | + + + Support + + + + + | Name | Relationship | Address | Phone | + + + + + | Mikki Douglass | ECON | [address], [place] | | | | | [address] | | + + + + + | Jameel Douglass | ECON | Unknown | | + + + + + Care Team Providers + +------+ + | Care Personal Computer Network Analyst Name | Role | Phone | + +------+ + PP | Unavailable | + +------+ + Allergies Not on File Medications Not on file Active Problems Not on file Social History + +-------+ +--------+------+ | Tobacco [...] recent travel history available. | + + Plan of Treatment + + [...] + Results Not on filefrom Last 3 Months"
--- OUTSIDE RECORDS SUMMARY | ~2018-07-08 | XMS | Clinical Summary ---
Demographics + + + | Address | [address] | | | [place] [address] | + + + | Home Phone | | + + + | Preferred Language | Unknown | + + + | Marital Status | | + + + | Tenriism Affiliation | 1069 | + + + | Race | Unknown | + + + | Ethnic Group | Unknown | + + + Author + + + | Author | [facility] | | | and [place] | + + + | Organization | [facility] | | | and [place] | + + + | Address | Unknown | + + + | Phone | Unavailable | + + + Support + + + + + | Name | Relationship | Address | Phone | + + + + + | Mikki Douglass | ECON | [address], [place] | | | | | [address] | | + + + + + | Jameel Douglass | ECON | Unknown | | + + + + + Care Team Providers + +------+ + | Care Commission Specialist Name | Role | Phone | [...]
--- OUTSIDE RECORDS SUMMARY | ~2018-07-08 | XMS | Clinical Summary ---
Demographics + + + | Address | [address] | | | [place] [address] | + + + | Home Phone | | + + + | Preferred Language | Unknown | + + + | Marital Status | | + + + | Gnosticist Affiliation | NON | + + + | Race | White | + + + | Ethnic Group | Not or | + + + Author + + + | Author | [facility] | + + + | Organization | [facility] | + + + | Address | Unknown | + + + | Phone | Unavailable | + + + Support + + + + + | Name | Relationship | Address | Phone | + + + + + | BLAIR DOUGLASS | ECON | [address] | | | | | [place] | | | | | [address] | | + + + + + Care Team Providers + +------+ + | Care Loan Associate Name | Role | Phone | + +------+ + | Asael Mendez MD | PP | | + +------+ + Source Comments JENNIFER is fully live on both [facility] and [facility] Allergies + + + + + + | Active Allergy | Reactions | Severity | Noted | Comments | | | | | Date | | + + + + + + | Doxazosin Mesylate | Unknown | | 06/02/19 | Pt does not recall | | | | | 16 | | + + + + + + | Utvxbek-Sen-Dlq | Arthralgia | | 06/02/19 | | [...] | re | [address] | [place] [address] | | | B | | | | | + +--------+ +--------+ + + | MODA MEDICARE | MODA | xxxxxxxxx | POS | +1- | [address] [address] | | SUPPLEMENT | MEDICA | | | [phone] | [place] [address] | | | RE | | | [...] | 1931 | +- | [place] [address] | | | janet | | | [phone] Home: | | | | | | | | | | | | | | +- | | | | | | | [phone] | | + +--------+ +--------+ + +
[~2018-07-08 19:47] MED LIST changes: +ALTACE10 MG PO; +AMLODIPINE BESY10 MG PO; +ASPIRIN EC81 MG PO; +ECOTRIN325 MG PO; +ELIQUIS5 MG PO; +ISOSORBIDE MONO30 MG PO; +NITROGLYCERIN0.4 MG SL
[2018-07-08] MEDS ORDERED: NORCO 5-325 TA1 EACH PO (23:22)
== END 2018-07-08 23:42 | disposition home or self-care (01) ==
LOC: ED 19:47
DX: M47.892 Other spondylosis, cervical region (principal); I10 Essential (primary) hypertension; Z85.828 Personal history of other malignant neoplasm of skin; Z87.891 Personal history of nicotine dependence; Z88.0 Allergy status to penicillin; Z88.1 Allergy status to other antibiotic agents; Z88.8 Allergy status to other drugs, medicaments and biological substances; Z91.09 Other allergy status, other than to drugs and biological substances; Z91.018 Allergy to other foods; Z79.899 Other long term (current) drug therapy
CPT/HCPCS: 72125; 96372; 99283-25; J1885

== ENCOUNTER 2019-10-06 11:43 | Emergency (ER) | payer MEDICARE, OTHER ==
[~2019-10-06] VITALS: Ht 182.9 cm; Wt 103.0 kg
--- OUTSIDE RECORDS SUMMARY | ~2019-10-06 | XMS | Encounter Summary ---
Demographics + + + | Address | [address] | | | [place] [address] | + + + | Home Phone | | + + + | Preferred Language | Unknown | + + + | Marital Status | | + + + | Muslim Affiliation | NON | + + + | Race | White | + + + | Ethnic Group | Not or | + + + Author + + + | Author | [facility] | + + + | Organization | [facility] | + + + | Address | Unknown | + + + | Phone | Unavailable | + + + Support + + + + + | Name | Relationship | Address | Phone | + + + + + | Nancy Douglass | ECON | [address] | | | | | [place] | | | | | [address] | | + + + + + Care Team Providers + +------+ + | Care Planning Director Name | Role | Phone | + +------+ + | Asael Mendez MD | PCP | | + +------+ + Encounter Details +--------+ + + + + | Date | Type | Department | Care Team | Description | +--------+ + + + + | 06/01/ | Hospital | Radiology/Imaging | | | | 2015 | Encounter | Lab at [facility] [address] | | | | | | [facility] | | | | | | [facility] and Healing, | | | | | | [facility] [place] | | | | | | Floor [place], [place] | | | | | | [address] | | | | | | [phone] | | | +--------+ + + + + Social History + + + +--------+ [...] + +---+---+ + + + | Comments: 1 can/day | + + + + +---------+ + | Alcohol Use | Drinks/Week | oz/Week | Comments | + + +---------+ + | Yes | 1 Standard drinks | 1.0 | | | | or equivalent | | | + + +---------+ + + + + | Sex Assigned at | Date Recorded | | | | + + + | Not on file | | + + + + + + + | Job Start Date | Occupation | Industry | + + + + | Not on file | Not on file | Not on file | + + + + + + + + | Travel History | Travel Start | Travel End | + + + + + + | No recent travel history available. | + + documented as of this encounter Medications at Time of Discharge + + + +---------+ + + | Medication | Sig | Dispensed | Refills | Start | End Date | | | | | | Date | | + + + +---------+ + + | amLODIPine 5 mg | Take 10 mg by mouth | | 0 | /1520 | | | oral tablet | once daily. | | | 16 | | + + + +---------+ + + | aspirin EC 81 mg | Take 81 mg by mouth | | 0 | | | | oral tablet,delayed | once daily. | | | | | | release (DR/EC) | | | | | | + + + +---------+ + + | atenolol 50 mg | Take 50 mg by mouth | | 0 | 05/01/19 | | | oral tablet | two times daily. | | | 16 | | + + + +---------+ + + | furosemide 20 mg | Take 20 mg by mouth | | 0 | 03/18/19 | | | oral tablet | once daily. | | | 16 | | + + + +---------+ + + | ISOSORBIDE ORAL | Take 60 mg by mouth | | 0 | | | | | once daily. | | | | | + + + +---------+ + + | nitroglycerin 0.4 | Place 0.4 mg under | | 0 | | | | mg sublingual | tongue every five | | | | | | tablet, sublingual | minutes as [...] 15 minutes. | | | | | + + + +---------+ + + | omeprazole 20 mg | Take 1 capsule by | | 0 | 06/02/19 | | | oral capsule,delayed | mouth. | | | 16 | | | release(DR/EC) | | | | | | + + + +---------+ + + | potassium chloride | Take 10 mEq by mouth | | 0 | 05/20/19 | | | SR 10 mEq oral | once daily. | | | 16 | | | capsule, extended | | | | | | | release | | | | | | + + + +---------+ + + | ramipril 10 mg | Take 10 mg by mouth | | 0 | | | | oral capsule | once daily. | | | | | + + + +---------+ + + documented as of this encounter Plan of Treatment Not on filedocumented as of this encounter Procedures + +--------+ + + + | Procedure Name | Priori | Date/Time | Associated Diagnosis | Comments | | | ty | | | | + +--------+ + + + | X-RAY CHEST 2 VIEW | Routin | 06/02/2015 | Melanoma of scalp | Results for this | | | e | 3:18 PM | (HCC) | procedure are in the | | | | PDT | | results section. | + +--------+ + + + documented in this encounter Results X-RAY CHEST 2 VIEW (06/02/2015 3:18 PM PDT) + + + + + + | Component | Value | Ref Range | Performed | Pathologist | | | | | At | Signature | + + + + + + | CHEST, 2 | EXAM: CHEST 2 VIEWS | | | | | VIEWS [place] | 06/02/15 15:18:00 | | | | | STEREO | HISTORY: Evaluate for | | | | | | metastasis. Melanoma | | | | | | COMPARISON: None. | | | | | | FINDINGS:Scarring/atelec | | | | | | tasis in the left lung | | | | | | base is observed; | | | | | | otherwise, the lungsare | | | | | | clear. There is no | | | | | | pulmonary edema, focal | | | | | | consolidation, pleural | | | | | | effusionor pneumothorax. | | | | | | The cardiomediastinal | | | | | | contour is unremarkable. | | | | | | No acuteosseous | | | | | | abnormality. Surgical | | | | | | anchors are noted in the | | | | | | proximal right humerus. | | | | | | IMPRESSION: No | | | | | | radiographic evidence | | | | | | for thoracic metastatic | | | | | | disease. Left lung base | | | | | | scarring/atelectasis. | | | | | | Attending Radiologists: | | | | | | SAMUEL CHILDERS MDAuthor: | | | | | | ÁNGEL CUMMINGS MD I | | | | | | personally reviewed the | | | | | | images and, if | | | | | | necessary, edited the | | | | | | report. I agreewith the | | | | | | report as now presented. | | | | | | | | | | | | Final/Electronically | | | | | | lyndsey / SAMUEL | | | | | | ALVARADO 06/02/2015 15:55 | | | | | | PM | | | | + + + + + + + + | Specimen | + + | | + + + +---------+ + + | Performing | Address | City/State/Zipcode | Phone Number | | Organization | | | | + +---------+ + + | [facility] | | | | | [facility]IOLOGY | | | | + +---------+ + + documented in this encounter Visit Diagnoses + + | Diagnosis | + + | Melanoma of scalp (HCC) Malignant melanoma of skin of scalp and neck | + + documented in this encounter"
--- OUTSIDE RECORDS SUMMARY | ~2019-10-06 | XMS | Encounter Summary ---
Demographics + + + | Address | [address] | | | [place] [address] | + + + | Home Phone | | + + + | Preferred Language | Unknown | + + + | Marital Status | | + + + | Taoist Affiliation | NON | + + + | Race | White | + + + | Ethnic Group | Not or | + + + Author + + + | Author | [facility] | + + + | Organization | [facility] | + + + | Address | Unknown | + + + | Phone | Unavailable | + + + Support + + + + + | Name | Relationship | Address | Phone | + + + + + | Nancy Douglass | ECON | [address] | | | | | [place] | | | | | [address] | | + + + + + Care Team Providers + +------+ + | Care Digital Court Reporter Name | Role | Phone | + +------+ + | Asael Mendez MD | PCP | | + +------+ + Encounter Details +--------+ + + + + | Date | Type | Department | Care Team | Description | +--------+ + + + + | 06/27/ | Documentati | NON-[facility] | Unknown . | | | 2017 | on | Department | | | +--------+ + + + [...] Not on filedocumented as of this encounter Visit Diagnoses Not on filedocumented in this encounter"
--- OUTSIDE RECORDS SUMMARY | ~2019-10-06 | XMS | Encounter Summary ---
Demographics + + + | Address | [address] | | | [place] [address] | + + + | Home Phone | | + + + | Preferred Language | Unknown | + + + | Marital Status | | + + + | Nondenominational Affiliation | NON | + + + | Race | White | + + + | Ethnic Group | Not or | + + + Author + + + | Author | [facility] | + + + | Organization | [facility] | + + + | Address | Unknown | + + + | Phone | Unavailable | + + + Support + + + + + | Name | Relationship | Address | Phone | + + + + + | Nancy Douglass | ECON | [address] | | | | | [place] | | | | | [phone] | | + + + + + Care Team Providers + +------+ + | Care Tool Room Lathe Operator Name | Role | Phone | + +------+ + | Asael Mendez MD | PCP | | + +------+ + Encounter Details +--------+ + + + + | Date | Type | Department | Care Team | Description | +--------+ + + + + | 05/27/ | Hospital | Registration [facility] | | | | 2016 | Encounter | [id number] | | | | | | [place], | | | | | | [place] [address] | | | +--------+ + + + + Social History + +-------+ +--------+------+ | Tobacco Use | Types | Packs/Day | Years | Date | | | | | Used | | + +-------+ +--------+------+ | Never Assessed | | | | | + +-------+ +--------+------+ + + + | Sex Assigned at [...] mg by mouth | | 0 | 05/26/19 | | | oral tablet | once [...]
--- OUTSIDE RECORDS SUMMARY | ~2019-10-06 | XMS | Encounter Summary ---
Demographics + + + | Address | [address] | | | [place] [address] | + + + | Home Phone | | + + + | Preferred Language | Unknown | + + + | Marital Status | | + + + | Jehovah'S Witness Affiliation | NON | + + + | Race | White | + + + | Ethnic Group | Not or | + + + Author + + + | Author | [facility] | + + + | Organization | [facility] | + + + | [...] [place] | | | | | [address] | | + + + + + Care Team Providers + +------+ + | Care Shot Peening Operator Name | Role | Phone | + +------+ + | Asael Mendez MD | PCP | | + +------+ + Reason for Visit +--------+ + | Reason | Comments | +--------+ + | Preop | | +--------+ + Encounter Details +--------+---------+ + + + | Date | Type | Department | Care Team | Description | +--------+---------+ + + + | 06/01/ | Office | Preoperative | Akua Alcantara FNP | Melanoma of scalp | | 2016 | Visit | Medicine Clinic at | [address] | ([facility]) | | | | MPV 4th Floor Day | [address] [place], | | | | | [address] | [place] [address] | | | | | [address] | [phone] | | | | | Mailcode: [id number] | | | | | | [facility] | | | | | | [address] [place], [place] | | | | | | [address] | | | | | | [phone] | | | +--------+---------+ + + + Anesthesia Record + + + + + | Procedure Name | Responsible | Anesthesia Start | Anesthesia Stop Time | | | Anesthesiologist | Time | | + + + + + | WIDE EXCISION | Per Kellee Boswell, | 06/19/15 1305 | 06/19/15 1514 | | MELANOMA RIGHT | PhD GARTH | | | | SCALP, SENTINEL NODE | | | | | BIOPSY Path | | | | | specimen x 5 sent | | | | | (Right Head) | | | | + + + + + +----+---+ + + | Da | T | Event | Comment | | te | i | | | | | m | | | | | e | | | +----+---+ + + | 04 | 1 | Pt. Check | Prior to anesthesia start, pt. Identified, examined, chart | | /0 | 2 | | reviewed, PARQ held, anesthetic plan made or approved by | | 8/ | 4 | | attending anesthesiologist. NPO status confirmed as appropriate | | 20 | 7 | | for procedure Preoperative evaluation: unchanged | | 16 | | | | +----+---+ + + | | 1 | Eq Check | Anesthesia machine checked Equipment verified | | | 2 | | | | | 5 | | | | | 1 | | | +----+---+ + + | | 1 | An Start | | | | 3 | | | | | 0 | | | | | 5 | | | +----+---+ + + | | 1 | An Start | | | | 3 | Data | | | | 0 | | | | | 7 | | | +----+---+ + + | | 1 | Vitals | Monitors applied Vital signs checked Patient ready for anesthesia | | | 3 | Checked | | | | 1 | | | | | 1 | | | +----+---+ + + | | 1 | Std. Airway | | | | 3 | Mgt. | | | | 1 | | | | | 7 | | | +----+---+ + + | | 1 | Ready | | | | 3 | | | | | 2 | | | | | 1 | | | +----+---+ + + | | 1 | Abx | | | | 3 | Administere | | | | 3 | d | | | | 3 | | | +----+---+ + + | | 1 | Local | | | | 3 | Anesthetic | | | | 4 | by Surgeon | | | | 0 | | | +----+---+ + + | | 1 | Incision | | | | 3 | | | | | 4 | | | | | 2 | | | +----+---+ + + | | 1 | Surgery end | | | | 4 | | | | | 5 | | | | | 4 | | | +----+---+ + + | | 1 | An Extubate | Neuromuscular function Intact. Pharynx suctioned. Patient obeys | | | 4 | | commands. Adequate pulmonary mechanics. | | | 5 | | | | | 8 | | | +----+---+ + + | | 1 | an stop | | | | 5 | data | | | | 0 | | | | | 3 | | | +----+---+ + + | | 1 | DC Meds | | | | 5 | | | | | 1 | | | | | 1 | | | +----+---+ + + | | 1 | Anesthesia | | | | 5 | End | | | | 1 | | | | | 4 | | | +----+---+ + + +------+ | Meds | +------+ + + + No medications | on file. | + + + + + | No agents on file. | + + + + | No blood administrations on file. | + + +--------+ + + + | Type | Details | Placement | Removal | +--------+ + + + | Periph | 06/19/15; 1205; Karissa; Left; | 06/19/15 1205 by | 06/20/15 1017 by | | eral | Wrist; 20 g; None; No; Positive; | Juani Rodríguez RN | Christina Mitchell RN | | IV | 06/20/15; 1017 | | | +--------+ + + + | Incisi | 06/19/15; 1347; Right; Anterior; | 06/19/15 1347 by | 12/30/16 0659 by | | on | ear; 12/30/16 (Automatic cleanup | Aria Mesa RN | Discontinued After | | | per RA 3006--contact admin for | | Discharge | | | questions.); 0659 (Automatic | | | | | cleanup per RA 3006--contact | | | | | admin for questions.) | | | +--------+ + + + | Incisi | 06/19/15; 1400; Right; chin; | 06/19/15 1400 by | 12/30/16 0659 by | | on | 12/30/16 (Automatic cleanup per | Aria Mesa RN | Discontinued After | | | RA 3006--contact admin for | | Discharge | | | questions.); 0659 (Automatic | | | | | cleanup per RA 3006--contact | | | | | admin for questions.) | | | +--------+ + + + | Incisi | 06/19/15; 1440; Right; Lateral; | 06/19/15 1440 by | 12/30/16 0659 by | | on | head; 12/30/16 (Automatic cleanup | Aria Mesa RN | Discontinued After | | | per RA 3006--contact admin for | | Discharge | | | questions.); 0659 (Automatic | | | | | cleanup per RA 3006--contact | | | | | admin for questions.) | | | +--------+ + + + documented in this encounter Social History + + + +--------+ + [...] + + documented as of this encounter Last Filed Vital Signs + + + + + | Vital Sign | Reading | Time Taken | Comments | + + + + + | Blood Pressure | 146/72 | 06/02/2015 4:05 PM | | | | | PDT | | + + + + + | Pulse | 98 | 06/02/2015 4:05 PM | | | | | PDT | | + + + + + | Temperature | 36.3 C (97.3 F) | 06/02/2015 4:05 PM | | | | | PDT | | + + + + + | Respiratory Rate | 16 | 06/02/2015 4:05 PM | | | | | PDT | | + + + + + | Oxygen Saturation | 94% | 06/02/2015 4:05 PM | | | | | PDT | | + + + + + | Inhaled Oxygen | - | - | | | Concentration | | | | + + + + + | Weight | 105.4 kg (232 lb 4.8 | 06/02/2015 4:05 PM | | | | oz) | PDT | | + + + + + | Height | 177.8 cm (5' 10") | 06/02/2015 4:05 PM | | | | | PDT | | + + + + + | Body Mass Index | 33.33 | 06/02/2015 4:05 PM | | | | | PDT | | + + + + + documented in this encounter Patient Instructions Patient Instructions Akua Alcantara NP - 06/02/2015 4:40 PM PDT PREOPERATIVE INSTRUCTIONS Empty stomach before surgery On the day BEFORE your surgery, drink plenty of fluids and stay well hydrated. NOTHING to eat or drink after midnight the night before surgery. This includes water, coffee, candy, mints, gum. Medications Instructions On the evening before your surgery, take ALL your usual evening medications TAKE the following medications with a sip of water on the morning of surgery: Amlodipine Omeprazole Metoprolol Unless otherwise directed by your surgeon, do not take any Aspirin, vitamin E or non-eduardo roidal anti-inflammatory (NSAIDs i.e. Advil, Aleve, Ibuprofen) or herbal supplements 7-14 da ys prior to your surgery. These drugs may interfere with normal blood clotting and may cause excessive bleeding and bruising during or after the surgery. If you need a pain medication for general purposes, use Tylenol as directed. OK to take it even on the morning of surgery, if needed. If you are in doubt about any medications that you are taking, please contact our office . Other Important Guidelines ? Do not shave the surgical area Do not smoke, drink alcohol or use recreational drugs for 24 hours before your surgery Watch for any change in your health condition. Let your surgeon know right away if you do not feel well. ? Do not wear makeup, perfume, lotions, deodorant, powder or hairspray. Do not wear any jewelry to the hospital. Wear loose, comfortable clothing. Leave all your valuables at home. Allow enough travel time so you re not late for your check in for surgery. ? Take a bath or shower and remember to shampoo your hair using your usual hair product bef ore your arrival at the hospital. Please remember to brush your teeth the night before and the morning of your procedure. Surgery check-in location: Day Stay Unit - [facility], 4th floor Room 4515 Surgery Check in Time: The Preoperative Medicine Clinic is not in the position to give you accurate information regarding surgical check in time. We refer you back to your surgical office regarding this important information. Going Home Your surgical team will decide when you are medically ready to go home. If you are released to go home on the same day as your procedure/surgery please note the following: You will not be able to drive. You will be required to have a competent person drive you or accompany you by taxi or pu blic transportation on the day of discharge. It is also recommended that you have a competent person assist you and look after you on the first night after you have undergone regional blocks (72 hours for patients going home with regional block pump), deep sedation, and/or general anesthesia. If you have questions or concerns after you go home, call your doctor s office. If it is after office hours, call the [facility] regrind mill operator at [phone] and ask them to page him or h er. documented in this encounter Progress Notes Akua Alcantara NP - 06/02/2015 4:53 PM PDTFormatting of this note might be different from t brinda original. PREOPERATIVE CONSULT NOTE Author: Akua Alcantara NP Referring Physician: Dr. Nikos Mchugh Primary Care Provider: Asael Mendez MD Reason for Consult: Preoperative evaluation and risk assessment Proposed Procedure/Date: Melanoma Excision on date TBD HISTORY OF PRESENT ILLNESS: Stan Douglass is a 84 y.o. male here for preoperative eval uation for above procedure. Pt has dx of scalp melanoma after identifying a suspicious pigm ented lesion on the scalp. Biopsy revealed melanoma. Pertinent medical history: CAD - DC stent placement x 2 (2003), stent placement (2004). No subsequent heart problems p er report. Last stress test six years ago. Denies chest pain, HILTON. Walks in the water and wa lks on the treadmill most days of the week. On BB, ASA (plans to stop for surgery). Cannot t olerate a statin. Advised pt to continue BB the morning of surgery. Hypertension (controlled). Chronic renal insufficiency: gfr 42. Appears stable. NIMESH on CPAP (advised to bring to the hospital). GERD (controlled on PPI) DM2 (diet controlled). Chronic pain/OA bilateral knees (moderately controlled with Advil and Tylenol). Perioperative cardiac risks: Prior CAD Functional Capacity: Moderate (4-10 mets) Prior complications of anesthesia: none ROS: Pulmonary: Flu shot + Nonsmoker no cough no shortness of breath no wheezing Pt. Has no asthma Dx of sleep apnea Uses BiPap/CPAP Cardiovascular: CAD with DC stent placement x 2 (2003) and stent (2004). Last Roller Coaster Designer visit and stress test six years ago - CAD is managed by PCP. Activity: Works out three times per week; treadmill for 15 minutes, walks in pool 20 minute s. Functional Capacity: Moderate - dyspnea on exertion, PND and chest pressure CAD Cad Sx: cardiac stents past DC hypertensi on well controlled Vascular: VASCULAR SYMPTOMS hyperlipidemia GI/Hepatic: GERD Control: Well controlled No liver disease : renal failure Type: Chronic Insufficiency Other : Types: BPH Endo: Last a1c 7.5 in December, Diabetes: type 2, diet Neurological: No CVA Sign/Sx (wears hearing aids) hearing loss tremors no seizures psychiat chary problem (no meds) depression pain Chronic pain > 6 months Chronic pain related to schedu led surgery In chronic pain: Yes Current Pain Level: Current pain level: 0 MS: arthritis Type: osteoarthritis arthralgias Heme/Onc: no Bleeding diathesis / thrombotic bleeding Previous Transfusions: no transfusion hx Hx: Malignancy: no cancer, Location: Metastasis: Skin: No hx MRSA/VRE/Active skin infection Current medications reviewed / updated Current Medication List Name Sig AMLODIPINE 5 MG TABLET Take 10 mg by mouth once daily. ASPIRIN 81 MG TABLET,DELAYED RELEASE Take 81 mg by mouth once daily. ATENOLOL 50 MG TABLET Take 50 mg by mouth two times daily. FUROSEMIDE 20 MG TABLET Take 20 mg by mouth once daily. ISOSORBIDE ORAL Take 60 mg by mouth once daily. NITROGLYCERIN 0.[address] 0.4 mg under tongue every five minutes as need ed for chest pain. Place under tongue and allow to dissolve. Administer every 5 minutes, ma x of 3 doses in 15 minutes. OMEPRAZOLE 20 MG CAPSULE,DELAYED RELEASE Take 1 capsule by mouth. POTASSIUM CHLORIDE ER 10 MEQ CAPSULE,EXTENDED RELEASE Take 10 mEq by mouth once daily. RAMIPRIL 10 MG CAPSULE Take 10 mg by mouth once daily. Allergies reviewed / updated Allergies Allergen Reactions Cardura [Doxazosin Mesylate] Unknown Pt does not recall Vuccmso-Ixj-Ilq Reductase Inhibitors Arthralgia Tetracycline Unknown Blisters Tomato Unknown Blisters Past medical history reviewed / updated Past Medical History Diagnosis Date Arthropathy CAD (coronary artery disease) Hearing loss Essential hypertension Hyperlipidemia BPH (benign prostatic hyperplasia) DM2 (diabetes mellitus, type 2) (HCC) Lumbago Chronic renal failure Past surgery reviewed and updated Past Surgical History Procedure Date Appendectomy 1947 Back surgery 1959 fusion Hernia repair Tonsillectomy 1936 Sinus surgery 1989 Excision of hemorrhoids 1955 Shoulder surgery 09/2004 Heart catheterization 10/20/04, 10/02/03 Melanoma 2008 Family history reviewed / updated Family History Problem Relation Cancer Maternal Aunt Diabetes Maternal Cousin Cancer Paternal Cousin Asthma Grandchild Asthma Grandchild Cancer Daughter colon Cancer Mother Cancer Father Diabetes Maternal Grandfather Heart Disease Maternal Grandmother Stroke Maternal Grandfather Social history reviewed / updated History Substance Use Topics Smoking status: Former Smoker -- 2.00 packs/day Types: Cigarettes Quit date: 06/01/1956 Smokeless tobacco: Former User Quit date: 03/13/1964 Comment: 1/2 can/day Alcohol Use: 0.6 oz/week 1 Standard drinks or equivalent per week PHYSICAL EXAM: Last Vitals: BP 146/72 | Pulse 98 | Temp (Src) 36.3 C (97.3 F) (Oral) | RR 16 | Ht 1.77 8 m (5' 10") | Wt 105.371 kg (232 lb 4.8 oz) | SpO2 94% | BMI 33.33 kg/(m^2) Body mass index is 33.33 kg/(m^2). General: Patients general appearance: Healthy, Alert, No distress, Cooperative and Age appr opriate Head & Neck/Airway: Normal appearing ears and nose. Neck ROM: full TM Distance:Normal Dentition: dentition is normal Hayes: No Mallampati: II Mouth Opening: > = 3 cm C-Spine: normal Neck Anatomy: Normal Jaw Protrusion: Normal, lower incisors can prot rude past upper incisors Lung Exam: No respiratory distress. Normal breathing pattern. breath sounds normal Cardiac: No murmurs, gallops or rubs. Rhythm: regular Rate: normal Abdominal: General Findings: no abdominal tenderness and Nondistended Bowel Sounds: bowel s ounds are normal Musculoskeletal: Findings: tone normal Neuro/Psych: Alert and appropriate; nl affect. alert Findings: Soft & sharp sensation john l, No tremor, Alert, oriented to person, place, time, Normal affect and Normal gait and stat ion Integument: No open rashes or lesions noted. - lesion and rash Color: pink Turgor: turgor normal Implants: None, LABS & DATA REVIEWED/ORDERED Lab Results Component Value Date WBC 7.53 06/02/2015 HB 16.6 06/02/2015 HCT 50.6 06/02/2015 PLT 259 06/02/2015 MCV 86.1 06/02/2015 RDW 46.5 06/02/2015 Lab Results Component Value Date NA 137 06/02/2015 K 4.3 06/02/2015 CL 106 06/02/2015 BICARB 22 06/02/2015 BUN 27 06/02/2015 CR 1.54 06/02/2015 GLU 149 06/02/2015 CA 9.9 06/02/2015 AST 19 06/02/2015 ALT 38 06/02/2015 AP 116 06/02/2015 TBILI 0.5 06/02/2015 TP 7.7 06/02/2015 ALB 4.0 06/02/2015 ANIONGAP 9 06/02/2015 ANIONALBCOR 9 06/02/2015 EKG: Personally reviewed. sinus bradycardia MEDICAL DECISION MAKIN ACC/AHA Perioperative Cardiac Risk Stratification (assumes non-emergent, non-cardiac p rocedure) Are active cardiac conditions present? No Calculate the combined surgical and patient-specific risk: using the Gross perioperative ca rdiac risk calculator, the risk of major adverse cardiac event (MACE) is: less than 1%. No further risk stratification for coronary disease is indicated. ASSESSMENT and RECOMMENDATIONS: Surgical/anesthesia risk assessment: Stan Douglass is a 84 y.o. male with diagnosis o f scalp melanoma, scheduled for wide excision. According to ACC/AHA guidelines, the patient does not meet criteria for additional testing. He has a history of CAD - DC- stent placeme nt x 2 (2003), stent placement (2004). No subsequent heart problems per report. Last stress test six years ago. Followed by his PCP. Denies chest pain, HILTON. Walks in the water and walk s on the treadmill most days of the week. > 4 metes. On BB, ASA (plans to stop for surgery). Cannot tolerate statin. Appears optimized. Advised pt to continue BB the morning of surger y. Medication management recommendations: The patient was advised to continue all usual medica tions except as noted in Patient Instructions (After Visit Summary given to pt) Hypertension (controlled). NIMESH on CPAP (advised to bring to the hospital). Chronic renal insufficiency: gfr 42. Appears stable. Caution with nephrotoxic agents. GERD (controlled on PPI) DM2 (diet controlled). Chronic pain/OA bilateral knees (moderately controlled with Advil and Tylenol). The patient appears stable for surgery. Thank you for the opportunity to contribute to this patient's care. Akua Alcantara NP [facility] PREOPER[facility]ICINE [facility] 4TH FLOOR DAY STAY [address] [place] [phone] documented in this encou nter Plan of Treatment Not on filedocumented as of this encounter Procedures + +--------+ + + + | Procedure Name | Priori | Date/Time | Associated Diagnosis | Comments | | | ty | | | | + +--------+ + + + | 12 LEAD ECG | Routin | 06/02/2015 | Melanoma of scalp | Results for this | | | e | 4:12 PM | (HCC) | procedure are in the | | | | PDT | | results section. | + +--------+ + + + | CBC (HEMOGRAM) ONLY | Routin | 06/02/2015 | Melanoma of scalp | Results for this | | | e | 4:05 PM | (HCC) | procedure are in the | | | | PDT | | results section. | + +--------+ + + + | INR | Routin | 06/02/2015 | Melanoma of scalp | Results for this | | | e | 4:05 PM | (HCC) | procedure are in the | | | | PDT | | results section. | + +--------+ + + + | COMPLETE METABOLIC | Routin | 06/02/2015 | Melanoma of scalp | Results for this | | SET | e | 4:05 PM | (HCC) | procedure are in the | | (NA,K,CL,CO2,BUN,CRE | | PDT | | results section. | | AT,GLUC,CA,AST,ALT,B | | | | | | SANDRA TOTAL,ALK | | | | | | PHOS,ALB,PROT TOTAL) | | | | | + +--------+ + + + | CBC ONLY | Routin | 06/02/2015 | Melanoma of scalp | Results for this | | | e | 4:05 PM | (HCC) | procedure are in the | | | | PDT | | results section. | + +--------+ + + + | LDH TOTAL, PLASMA | Routin | 06/02/2015 | Melanoma of scalp | Results for this | | | e | 4:05 PM | (HCC) | procedure are in the | | | | PDT | | results section. | + +--------+ + + + documented in this encounter Results 12 LEAD ECG (06/02/2015 4:12 PM PDT) + + + + + + | Component | Value | Ref Range | Performed | Pathologist | | | | | At | Signature | + + + + + + | VENTRICULAR | 56 | bpm | [facility] | | | RATE | | | OF | | | | | | CARDIOLOGY | | + + + + + + | ATRIAL RATE | 56 | bpm | [facility] | | | | | | OF | | | | | | CARDIOLOGY | | + + + + + + | P-R | 196 | ms | [facility] | | | INTERVAL | | | OF | | | | | | CARDIOLOGY | | + + + + + + | P AXIS | -16 | deg | [facility] | | | | | | OF | | | | | | CARDIOLOGY | | + + + + + + | QRS | 76 | ms | [facility] | | | DURATION | | | OF | | | | | | CARDIOLOGY | | + + + + + + | QT | 428 | ms | [facility] | | | | | | OF | | | | | | CARDIOLOGY | | + + + + + + | QTC-BAZETT | 414 | ms | [facility] | | | | | | OF | | | | | | CARDIOLOGY | | + + + + + + | R AXIS | 24 | deg | [facility] | | | | | | OF | | | | | | CARDIOLOGY | | + + + + + + | T AXIS | 41 | deg | [facility] | | | | | | OF | | | | | | CARDIOLOGY | | + + + + + + | ECG | SINUS BRADYCARDIA- | | [facility] | | | IMPRESSION | OTHERWISE NORMAL ECG | | OF | | | | -Electronically signed | | CARDIOLOGY | | | | by: NAKUL YEBOAH | | | | | | 06-02-2015 17:54:48 | | | | + + + + + + + + | Specimen | + + | | + + + + + | Narrative | Performed At | + + + | | | + + + + + + + + | Performing | Address | City/State/Zipcode | Phone Number | | Organization | | | | + + + + + | [facility] | [address] | [place], [place] | | | CARDIOLOGY | [address] | [address] | | + + + + + CBC (HEMOGRAM) ONLY (06/02/2015 4:05 PM PDT) + + + + + + | Component | Value | Ref Range | Performed | Pathologist | | | | | At | Signature | + + + + + + | WHITE CELL | 7.53 | 4.40 - 11.00 | [facility] | | | COUNT | | K/cu mm | LABORATORY | | | | | | SERVICES, | | | | | | CORE | | + + + + + + | RED CELL | 5.88 | 4.50 - 6.00 | [facility] | | | COUNT | | M/cu mm | LABORATORY | | | | | | SERVICES, | | | | | | CORE | | + + + + + + | HEMOGLOBIN | 16.6 | 13.5 - 17.5 | [facility] | | | | | g/dL | LABORATORY | | | | | | SERVICES, | | | | | | CORE | | + + + + + + | HEMATOCRIT | 50.6 | 41.0 - 53.0 % | [facility] | | | | | | LABORATORY | | | | | | SERVICES, | | | | | | CORE | | + + + + + + | MCV | 86.1 | 80.0 - 96.0 fL | [facility] | | | | | | LABORATORY | | | | | | SERVICES, | | | | | | CORE | | + + + + + + | MCHC | 32.8 | 33.0 - 35.5 | [facility] | | | | | g/dL | LABORATORY | | | | | | SERVICES, | | | | | | CORE | | + + + + + + | RDW SD | 46.5 (H) | 35.1 - 46.3 fL | [facility] | | | | | | LABORATORY | | | | | | SERVICES, | | | | | | CORE | | + + + + + + | PLATELET | 259 | 150 - 400 K/cu | [facility] | | | COUNT | | mm | LABORATORY | | | | | | SERVICES, | | | | | | CORE | | + + + + + + | MPV | 9.7 | 9.7 - 12.3 fL | [facility] | | | | | | LABORATORY | | | | | | SERVICES, | | | | | | CORE | | + + + + + + | NRBC% | 0.0 | 0.0 - 0.3 % | [facility] | | | | | | LABORATORY | | | | | | SERVICES, | | | | | | CORE | | + + + + + + | NRBC# | 0.00 | 0.00 - 0.02 | [facility] | | | | | K/cu mm | LABORATORY | | | | | | SERVICES, | | | | | | CORE | | + + + + + + + + | Specimen | + + | Blood - Blood | | (substance) | + + + + + + + | Performing | Address | City/State/Zipcode | Phone Number | | Organization | | | | + + + + + | [facility] | [address] | [place] [address] | | | SERVICES, CORE | [address] | | | + + + + + COMPLETE METABOLIC SET (NA,K,CL,CO2,BUN,CREAT,GLUC,CA,AST,ALT,BILI TOTAL,ALK PHOS,ALB,PROT TOTAL) (06/02/2015 4:05 PM PDT) + + + + + + | Component | Value | Ref Range | Performed | Pathologist | | | | | At | Signature | + + + + + + | GLUCOSE, | 149 (H) | 60 - 99 mg/dL | [facility] | | | PLASMA | | | LABORATORY | | | (LAB) | | | SERVICES, | | | | | | CORE | | + + + + + + | BUN, PLASMA | 27 (H) | 6 - 20 mg/dL | [facility] | | | (LAB) | | | LABORATORY | | | | | | SERVICES, | | | | | | CORE | | + + + + + + | CREATININE | 1.54 (H) | 0.70 - 1.30 | [facility] | | | PLASMA | | mg/dL | LABORATORY | | | (LAB) | | | SERVICES, | | | | | | CORE | | + + + + + + | EGFR | 52 (L) | >60 mL/min | [facility] | | | - | | | LABORATORY | | | DUTCH | | | SERVICES, | | | | | | CORE | | + + + + + + | EGFR NON | 43 (L) | >60 mL/min | [facility] | | | -AMINA | | | LABORATORY | | | RICAN | | | SERVICES, | | | | | | CORE | | + + + + + + | SODIUM, | 137 | 136 - 145 | [facility] | | | PLASMA | | mmol/L | LABORATORY | | | (LAB) | | | SERVICES, | | | | | | CORE | | + + + + + + | POTASSIUM, | 4.3 | 3.4 - 5.0 | [facility] | | | PLASMA | | mmol/L | LABORATORY | | | (LAB) | | | SERVICES, | | | | | | CORE | | + + + + + + | CHLORIDE, | 106 | 97 - 108 mmol/L | [facility] | | | PLASMA | | | LABORATORY | | | (LAB) | | | SERVICES, | | | | | | CORE | | + + + + + + | TOTAL CO2, | 22 | 21 - 32 mmol/L | [facility] | | | PLASMA | | | LABORATORY | | | (LAB) | | | SERVICES, | | | | | | CORE | | + + + + + + | CALCIUM, | 9.9 | 8.6 - 10.2 | [facility] | | | PLASMA | | mg/dL | LABORATORY | | | (LAB) | | | SERVICES, | | | | | | CORE | | + + + + + + | BILIRUBIN | 0.5 | 0.3 - 1.2 mg/dL | [facility] | | | TOTAL | | | LABORATORY | | | | | | SERVICES, | | | | | | CORE | | + + + + + + | TOTAL | 7.7 | 6.4 - 8.2 g/dL | [facility] | | | PROTEIN, | | | LABORATORY | | | PLASMA | | | SERVICES, | | | (LAB) | | | CORE | | + + + + + + | ALBUMIN, | 4.0 | 3.5 - 4.7 g/dL | [facility] | | | PLASMA | | | LABORATORY | | | (LAB) | | | SERVICES, | | | | | | CORE | | + + + + + + | ALK PHOS | 116 | 56 - 119 U/L | [facility] | | | | | | LABORATORY | | | | | | SERVICES, | | | | | | CORE | | + + + + + + | AST(SGOT) | 19 | <=41 U/L | [facility] | | | | | | LABORATORY | | | | | | SERVICES, | | | | | | CORE | | + + + + + + | ALT (SGPT) | 38 | <=60 U/L | [facility] | | | | | | LABORATORY | | | | | | SERVICES, | | | | | | CORE | | + + + + + + | ANION | 9 | 4 - 11 mmol/L | [facility] | | | GAP(ALB | | | LABORATORY | | | CORRECTED) | | | SERVICES, | | | | | | CORE | | + + + + + + | POTASSIUM | No Hemo | | [facility] | | | CMNT | | | LABORATORY | | | | | | SERVICES, | | | | | | CORE | | + + + + + + | BILI T CMNT | No Hemo | | [facility] | | | | | | LABORATORY | | | | | | SERVICES, | | | | | | CORE | | + + + + + + | AST CMNT | No Hemo | | [facility] | | | | | | LABORATORY | | | | | | SERVICES, | | | | | | CORE | | + + + + + + | ANION GAP | 9 | mmol/L | [facility] | | | | | | LABORATORY | | | | | | SERVICES, | | | | | | CORE | | + + + + + + + + | Specimen | + + | Blood - Blood | | (substance) | + + + + + | Narrative | Performed At | + + + | GFR is estimated using the MDRD equation recommended by the | [facility] | | National Kidney Disease Education Program. Estimated GFR | LABORATORY | | Interpretive Information: <60 mL/min/1.73 sq m | [facility] | | Chronic Kidney Disease <15 mL/min/1.73 sq m | | | Kidney Failure Estimated GFR greater that 60 mL/min/1.73 sq m is of | | | limited clinical value. The MDRD equation is not valid in the | | | following situations: - Patients under 18 years of age - Severe | | | malnutrition or obesity - Vegetarian diet - Rapidly changing kidney | | | function | | + + + + + + + + | Performing | Address | City/State/Zipcode | Phone Number | | Organization | | | | + + + + + | [facility] | [phone] | [place] [address] | | | [facility] | [address] | | | + + + + + LDH TOTAL, PLASMA (06/02/2015 4:05 PM PDT) + +---------+ + + + | Component | Value | Ref Range | Performed | Pathologist | | | | | At | Signature | + +---------+ + + + | LD TOTAL, | 237 | <=250 U/L | [facility] | | | PLASMA | | | LABORATORY | | | | | | SERVICES, | | | | | | CORE | | + +---------+ + + + | LD CMNT | No Hemo | | [facility] | | | | | | LABORATORY | | | | | | SERVICES, | | | | | | CORE | | + +---------+ + + + + + | Specimen | + + | Blood - Blood | | (substance) | + + + + + + + | Performing | Address | City/State/Zipcode | Phone Number | | Organization | | | | + + + + + | [facility] | [address] | [place] [address] | | | SERVICES, CORE | [address] | | | + + + + + INR (06/02/2015 4:05 PM PDT) + +-------+ + + + | Component | Value | Ref Range | Performed | Pathologist | | | | | At | Signature | + +-------+ + + + | INR | 0.99 | 0.90 - 1.20 INR | [facility] | | | | | | LABORATORY | | | | | | SERVICES, | | | | | | CORE | | + +-------+ + + + + + | Specimen | + + | Blood - Blood | | (substance) | + + + + + | Narrative | Performed At | + + + | INR Therapeutic ranges for full anticoagulation: INR for | [facility] | | Venous Thromboembolism (2.0 - 3.0) INR INR for | LABORATORY | | most patients with mech. valves (2.5 - 3.5) INR | SERVICES, CORE | + + + + + + + + | Performing | Address | City/State/Zipcode | Phone Number | | Organization | | | | + + + + + | [facility] | [address] | [place] [address] | | | SERVICES, CORE | [address] | | | + + + + + documented in this encounter Visit Diagnoses + + | Diagnosis | + + | Melanoma of scalp (HCC) Malignant melanoma of skin of scalp and neck | + + documented in this encounter
--- OUTSIDE RECORDS SUMMARY | ~2019-10-06 | XMS | Encounter Summary ---
Demographics + + + | Address | [address] | | | [place] [address] | + + + | Home Phone | | + + + | Preferred Language | Unknown | + + + | Marital Status | | + + + | Restoration Affiliation | NON | + + + | Race | White | + + + | Ethnic Group | Not or | + + + Author + + + | Author | [facility] | + + + | Organization | [facility] | + + + | [...] [place] | | | | | [id number] | | + + + + + Care Team Providers + +------+ + | Care Recreational Facilities Motel Manager Name | Role | Phone | + +------+ + | Asael Mendez MD | PCP | | + +------+ + Reason for Visit AUTH/CERT +--------+--------+ + + + + | Status | Reason | Specialty | Diagnoses / | Referred By | Referred To | | | | | Procedures | Contact | Contact | +--------+--------+ + + + + | | | | | | | +--------+--------+ + + + + Encounter Details +--------+---------+ + + + | Date | Type | Department | Care Team | Description | +--------+---------+ + + + | 06/18/ | Surgery | 4N INTRA OP 3161 | Nikos Mchugh MD | WIDE EXCISION | | [address] | | [address] | [address] | MELANOMA RIGHT | | | | [facility] | [place], [place] | SCALP, [place] | | | | Ambulatory Surgery | [address] | BIOPSY Path | | | | Admitting Desk | [phone] | specimen x 5 sent | | | | Located on the 4th | | | | | | floor, Room [facility] | | | | | | [place], [place] | | | | | | [address] | | | +--------+---------+ + + + Social History + + [...] + + + | Blood Pressure | 139/60 | 06/20/2015 8:37 AM | | | | | PDT | | + + + + + | Pulse | 58 | 06/20/2015 8:37 AM | | | | | PDT | | + + + + + | Temperature | 36.8 C (98.2 F) | 06/20/2015 8:37 AM | | | | | PDT | | + + + + + | Respiratory Rate | 18 | 06/20/2015 8:37 AM | | | | | PDT | | + + + + + | Oxygen Saturation | 92% | 06/20/2015 8:37 AM | | | | | PDT | | + + + + + | Inhaled Oxygen | - | - | | | Concentration | | | | + + + + + | Weight | - | - | | + + + + + | Height | - | - | | + + + + + | Body Mass Index | - | - | | + + + + + documented in this encounter Discharge Summaries Natalia Treviño MD - 06/20/2015 8:59 AM PDT INPATIENT DISCHARGE SUMMARY: Attending Physician: Nikos Mchugh MD PCP: Asael Mendez MD Patient: Stan Douglass Admission Date: 06/19/2015 Discharge Date: 06/20/2015 Service: [facility] Surgery Team Summary: 84 yo m w/ hx of with a suspicious pigmented lesion of the scalp. This occurred at the site of a prior excision. Partial biopsy by Dr Benites was read at [facility] as melanoma, at least 0. 57mm, in radial growth phase, with no ulceration or LVI but 1 miosis/mm2, he is T1bN0, stage Ib. He was taken to the operating room on 06/19/2015 and underwent Excision of scalp melanoma with sentinel lymph node biopsy with adjacent tissue transfer repair of right scalp defect (total undermined area of [id number]). He tolerated the procedure well but due to low saturatio ns in PACU as well as pain issues he was admitted to observation overnight. He used home CPA P and did well and was able to discharge the next morning with plans to follow up with Dr. Kayli garcia Vital Signs at discharge as appropriate: BP: 139/60 mmHg (06/20/15836) Pulse: 58 (06/20/15836) Resp: 18 (0 06/20/15836) Current Discharge Medication List START taking these medications Details docusate sodium (COLACE) 100 mg oral capsule Take 1 capsule by mouth two times daily. Jose e continue to take this while on narcotic pain medications to help prevent constipation Please hold for loose stools Qty: 60 capsule, Refills: 0 oxyCODONE, immediate release, 5 mg oral tablet Take 1 to 2 tablets by mouth every six hours as needed. Qty: 30 tablet, Refills: 0 CONTINUE these medications which have NOT CHANGED Details amLODIPine 5 mg oral tablet Take 10 mg by mouth once daily. Refills: 0 aspirin EC 81 mg oral tablet,delayed release (DR/EC) Take 81 mg by mouth once daily. atenolol 50 mg oral tablet Take 50 mg by mouth two times daily. Refills: 0 furosemide 20 mg oral tablet Take 20 mg by mouth once daily. Refills: 0 ISOSORBIDE ORAL Take 60 mg by mouth once daily. nitroglycerin 0.4 mg sublingual tablet, sublingual Place 0.4 mg under tongue every five min utes as needed for chest pain. Place under tongue and allow to dissolve. Administer every 5 minutes, max of 3 doses in 15 minutes. omeprazole 20 mg oral capsule,delayed release(DR/EC) Take 1 capsule by mouth. potassium chloride SR 10 mEq oral capsule, extended release Take 10 mEq by mouth once daily . Refills: 0 ramipril 10 mg oral capsule Take 10 mg by mouth once daily. Examination on discharge: Gen: A&O, NAD HEENT: head covered with dressing, no breakthrough Lungs: unlabored. CPAP being used CV: RRR Abd: soft, NT/ND Ext: WWP Condition On Discharge: Good Discharge Patient To: Home PCP:Asael Mendez MD When: Please follow-up with your primary care physician as macarena n as possible to review new medications and recent interventions OTHER DISCHARGE ORDERS & INSTRUCTIONS Care Instructions after your surgery The following instructions are general guidelines to promote a safe and uneventful recovery from your surgery. Please follow your surgeon s specific instructions if applicable. ACTIVITY No limitation DIET/ NAUSEA AND VOMITING To help prevent nausea from your pain medication, take it with food and a full glass of donaldo er. Nausea and vomiting are not common after surgery, but your surgeon may have provided you a prescription for this. CONSTIPATION Reduced activity, pain medications and change in diet contribute to constipation after surg ted. Most people at risk of constipation will need to take knqc-fmy-luhychi medications to manag e this side effect. Your goal is to have one soft bowel movement every one to two days. Stool softeners usually take at least 2 days to produce results, so we recommend over-the-c ounter laxatives- senna (Senokot), milk of magnesia, or polyethylene glycol ( Miralax). Fiber in the form of bulk forming products- Metamucil, Fibersure or FiberCon- should be adrián ided as they may cause constipation. PAIN/ MEDICATIONS Swelling and/or bruising are common at the incision site. Using a bag of crushed ice can de crease swelling and discomfort. Apply ice therapy for no longer than 15 minutes at a time every 1-2 hours (while awake) for 2-3 days. Be sure to keep dressing dry while using ice. Take your pain medication as directed. It is suggested to take it as soon as the discomfort starts in order to give the medicine to work. Take your pain medication on a regular schedule for the first day after surgery and during sleeping hours, as well. Unless otherwise instructed by your physician, 400 mg of Ibuprofen may be taken 3 or 4 time s a day along with your pain medication for relief of inflammation and/or discomfort. Do not take Ibuprofen if you are allergic to Non-Steroidal Anti-inflammatories, are on blood thinn ers or have a history of ulcers. Plan ahead and call for medication refills during office hours. We do not refill medicatio ns after hours, after noon on Fridays, or on weekends. Notify your physician or After Hours Advice for any of the following: Any signs of infection; temperature over 101 F, redness or drainage from incision. Pain not controlled by your pain medication Vomiting which continues for more than 24 hours. Fainting, weakness or dizziness. Increased swelling in abdomen and or pain. New persistent or worsening shoulder pain. Any questions or concerns. Post-operative appointment: Call the office to schedule an appointment to be seen in 2 week s. Special Instructions/Tests: No results found for: CULTURE Does patient have a planned readmission: No Discharge Summary Completed?: Yes. 06/20/2015 Discharging Provider: Natalia Treviño MD Date Completed: 06/20/2015 Time Completed: 8:59 AM Discharging Attending: MD Natalia Alatorre MD Resident, [facility], Dept. of Surgery Pager [phone] documented in this encoun ter Discharge Instructions Instructions Christina Mitchell RN - 06/19/2015Patient Education Materials: General postop and melanoma handout given Discharge Nurse: Christina Mitchell RN Date: 06/20/2015 Discharge Time: 10:13 AM Principal Diagnosis: melanoma Principal Procedure: Complex wound closure Reason for Admission, Significant Findings, Treatment and Complication: Presented for the above procedure, tolerated it well. After procedure did well and was discharged without comp lications. Condition on Discharge: Stable Disposition: Home Follow up care: As scheduled Activity Restrictions: No heavy lifting or strenuous activity for 2 weeks after procedure Diet: Resume usual diet Wound care: apply bacitracin to incisions 2-3 times daily to keep moist at all times. Leave dressing on until post-operative day one. During business hours please call the Facial Plastics [facility], at [phone] with any ques tions or concerns. Otherwise, you may call the Otolaryngology resident at [phone] for c oncerns, such as difficulty breathing or unusual shortness of breath, excessive bleeding, dr chaney at the operative site, fevers, chills, increased pain that is not relieved by pain me dications, persistent nausea or vomiting. Signed by: Justa Corbin MD General Discharge Instructions for Same-Day Procedure Patients: ? Remember that you are under the influence of medications. Do not stay alone. A responsible person should be with you. Do not drive, drink alcohol or make important personal or business decisions for 24 hour s. ? Resume normal activity and return to work when advised by your Doctor. Diet: ? If you do not experience nausea or vomiting resume your regular diet. Eat lightly and av oid large, high fat or highly spiced meals for 24-48 hours. ? Constipation can be a side effect of narcotic pain medication. Take stool softeners, inc rease dietary fiber and drink plenty of water to prevent this. Wound/Dressing/Drain Care: ? Call your Doctor if there is excessive bleeding, redness, swelling or drainage at the ope rative site. Urination: ? Please contact your Doctor or proceed to the nearest Emergency Room if you have not urina yoshi/voided in 8 hours after discharge. IV Site Care Instructions: ? Monitor IV site for pain, redness, swelling and/or drainage. If present, call your Docto r immediately. ? Minor redness and/or tenderness may be treated with warm, moist compresses for 24-48 hour s. If the area is still red and/or tender after this, notify your Doctor. Call your Doctor if you experience: ? Persistent nausea or vomiting. ? Fever ?101F or chills. ? Increased or uncontrolled pain despite taking pain medications. Call 911 if you experience difficulty breathing or unusual shortness of breath. After arriving home you may receive a patient satisfaction survey from "[employer]". We tanja calzada appreciate your feedback on the survey to help us provide excellent service to you and your family. AttachmentsThe following attachments cannot be sent through Care Everywhere.MELANOMA (ENGLI SH)SURGERY: GENERIC: POST-OP (NEPALESE)documented in this encounter Medications at Time of Discharge [...] + + + +---------+ + + | docusate sodium | Take 1 capsule by | 60 | 0 | 06/20/19 | | | (COLACE) 100 mg oral | mouth two times | capsule | | 16 | | | capsule | daily. Please | | | | | | | continue to [...] | stools | | | | | + + [...] | | | 16 | | | release(/YURY) | | | | | | + + + +---------+ + + | oxyCODONE, | Take 1 to 2 tablets | 30 | 0 | 06/20/19 | | | immediate release, 5 | by mouth every six | tablet | | 16 | | | mg oral tablet | hours as needed. | | | | | + + [...] + + documented as of this encounter Progress Notes Nikos Mchugh MD - 06/20/2015 8:52 AM PDT06/20/2015 Surg Onc Note I performed a history and physical examination of the patient and discussed his management with the resident. I reviewed the resident s note and agree with the documented findings and plan of care. POD#1. 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 Home today, F/u on 06/29. Nikos Mchugh MD [facility] [id number] [place], [place] [address] electronically signed by Nikos Mchugh MD at 06/20/2015 8:53 AM Salo Brice MD - 06/19/2015 9:51 PM PDTGold Surgery Post Op-Check 06/19/2015 S: Patient is a 84 y.o. male s/p Excision of scalp melanoma with sentinel lymph node biopsy . Patient's pain and nausea are well controlled. He is resting comfortably without focal co mplaints O: Last Vitals: BP 166/84 | Pulse 69 | Temp 36.7 C (98 F) | RR 16 | SpO2 89% Physical Examination: General: NAD HEENT: MMM Lungs: Unlabored breathing on CPAP device CV: Regular Abdomen: Soft, nondistended, nontender Extremities: WWP Wound: dressing clean dry and intact A-P: Patient is a 84 y.o. male s/p excision of scalp melanoma, SLNB. Recovering appropriate ly without signs of early post-operative complication. #Continue routine post-operative care Pain: APAP, oxy prn FEN: Heart healthy TLD: PIV PPX: enoxoparin POD1 Code: Full Salo Elmore MD R-1, Department of Surgery [facility] Pager #[phone] Natalia Mueller MD - 6:02 PM PDTContinues to have pain. Hx of smoking 3 ppd for over 7 years in the pas t. On CPAP at home. Continues to require O2, will admit for observation and pain control ove rnight Natalia Mueller M D - 06/19/2015 3:04 PM PDTBrief Operative Note - General Surgery Procedure Date: 06/19/2015 Author: Natalia Treviño MD Attending Physician: Nikos Mchugh MD Assistants: Natalia Treviño MD Prior to the beginning of the procedure the team paused to verify the patient's identity, a s well as the procedure to be performed and the correct side/site. All equipment required w as ready and available. The patient was positioned appropriately. The following steamboat captain s were present during the team pause: Surgery, anesthesia, OR staff Preoperative Diagnosis: Melanoma of the scalp, Right side Postoperative Diagnosis: Same Procedure: Excision of scalp melanoma with sentinel lymph node biopsy Findings: Periparotid lymph node found and removed. Submandibular lymph node also found and removed. Scalp lesion removed , total size 3.5 x3.5 cm excised. Specimens: Right scalp melanoma, short superior, long anterior. Periparotid lymph node Submandibular lymph node Complications: None Estimated Blood Loss: Minimal Disposition: Closure per Dr. Mooney's team Natalia Treviño MD Surgery Resident, R3 documented in this encoun ter Plan of Treatment Not on filedocumented as of this encounter Procedures + +--------+ + + + | Procedure Name | Priori | Date/Time | Associated Diagnosis | Comments | | | ty | | | | + +--------+ + + + | OPERATION RECORD | | 06/22/2015 | | Results for this | | | | 3:05 PM | | procedure are in the | | | | PDT | | results section. | + +--------+ + + + | PROCEDURE NOTE | Routin | 06/20/2015 | | Results for this | | | e | 10:45 AM | | procedure are in the | | | | PDT | | results section. | + +--------+ + + + | CAPILLARY BLOOD | Routin | 06/19/2015 | | Results for this | | GLUCOSE (NO CHG), | e | 3:24 PM | | procedure are in the | | POC | | PDT | | results section. | + +--------+ + + + | FLAP/ADJACENT TISSUE | Electi | 06/19/2015 | [facility] | | | TRANSFER | ve | 1:07 PM | | | | | Surgic | PDT | | | | | al | | | | + +--------+ + + + | EXCISION LESION | Electi | 06/19/2015 | [facility] | | | FACE, HEAD OR NECK | ve | 1:07 PM | | | | | Surgic | PDT | | | | | al | | | | + +--------+ + + + | CARDIOLOGY | | 06/19/2015 | | Results for this | | | | 12:00 AM | | procedure are in the | | | | PDT | | results section. | + +--------+ + + + | SURGICAL PATHOLOGY | Routin | 06/19/2015 | | Results for this | | | e | | | procedure are in the | | | | | | results section. | + +--------+ + + + documented in this encounter Results OPERATION RECORD (06/22/2015 3:05 PM PDT) + + | Transcriptions | + + | Nikos Mchugh MD - 06/19/2015 4:18 PM PDT Date of Service: 06/19/2015 Attending | | Surgeon:Nikos Mchugh MD Furniture Assembler And Installer(s):Natalia Treviño MD, | | resident in Surgery. Preoperative Diagnosis: Melanoma of the right | | parietal scalp.Postoperative Diagnosis: Melanoma of the right parietal scalp.Procedure: | | 1.Preoperative injection Lymphazurin blue dye, right parietal scalp melanoma | | site.2.Wide excision right parietal scalp melanoma 3.5 x 3.5 cm, full thickness down to | | but not including pericranium.3.[place] lymph node biopsy, right periparotid region, | | deep.4.[place] lymph node biopsy, right neck level 2, deep.Specimens: 1.Wide excision | | melanoma, right parietal scalp, 3.5 x 3.5 cm, full thickness down to but not including | | pericranium, oriented for Pathology.2.[place] lymph nodes, sent as a single specimen on | | Telfa, from the right periparotid region.3.[place] lymph nodes, from the right neck | | level 2, sent as a single specimen on Telfa.Drains: None.Complications: None.Estimated | | Blood Loss: 30 cc.Fluids Given: 1 L of crystalloid.Urine Output: None; patient did | | not have a Stanford catheter.Findings: 1.Blue-stained lymph nodes in the right periparotid | | region. The tissue was removed piecemeal. The counts themselves were actually | | somewhat diffuse and the tissue we sent was "cold.".2."Hot and blue" lymph nodes in the | | right neck at level 2. These nodes were clearly sentinel and were consistent with the | | lymphoscintigram. Pathology on these nodes is pending at this time.3.There was no | | significant uptake in the area marked behind the ear.4.Defect in the scalp was closed by | | Dr. Luc Mooney of ENT Plastic Surgery. Dr. Mooney will dictate his portion | | separately.Indications: Mr. 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 He underwent lymphoscintigraphy this morning | | which showed somewhat unusual drainage pattern. There was one area of uptake behind the | | ear near the occiput and at level 2. The patient was then taken to the operating room | | for wide excision and surgical staging.Procedure: With the patient supine on the | | operating table, under general endotracheal anesthesia, we performed a surgical pause | | during which we properly identified patient, procedure, and position. Following the | | pause, we shaved the scalp and neck, turned the head to the left side on a gel donut, | | placed towel rolls behind the patient's shoulder and shaved the upper chest. The upper | | chest was shaved for a possible skin graft. We placed Lacri-Lube and a corneal | | protector into the right globe. This allowed us to put a 1000 drape across the central | | face and draped the entire central face into the field. We sterilely prepped and draped | | widely from the edge of the nose all way to the table and down to the nipple. Just | | prior to prepping and draping, I injected 0.5 cc of 1% Lymphazurin blue dye around the | | melanoma biopsy site. I injected this in the same locations that had been injected by | | Nuclear Medicine. These were identified using the C-Trak probe. After sterile prepping | | and draping, I marked out a 1 cm ellipse in all directions. This incorporated a | | pigmented area that was adjacent to the lesion and evident in the patient's preoperative | | photographs. The resulting ellipse measured 3.5 x 3.5 cm. I injected the area widely | | with local anesthetic. While this was taking effect, we used the C-Trak probe to | | determine the fact that there was some apparent uptake in the periparotid region. I | | opened this area with a knife and the needlepoint Bovie on a low setting, placed | | fishhook retractors and dissect out several slightly blue-stained periparotid lymph | | nodes. These were placed on the Telfa pad and sent separately as "periparotid sentinel | | lymph nodes." These nodes were "cold" but clearly blue-stained, and the background | | count was somewhat diffuse. I removed the fishhook retractors. I opened level 2 in the | | area indicated by the C-Trak probe with knife and Bovie cautery and replaced the | | fishhook retractors at this site. We opened platysma, divided into the level 2 tissue | | lateral to the submandibular triangle and identified and preserved the marginal | | mandibular nerve and the facial vein. Deep to this, I identified multiple "hot and | | blue" nodes which were excised with a needlepoint cautery on a low setting and placed | | on a piece of Telfa. In toto, the specimen had a 10-second count of 3566 with a | | background count of 335. I therefore considered these nodes sentinel and this portion | | of the procedure completed. We achieved hemostasis with the Bovie and removed the | | fishhooks and then closed both incisions by injecting them with local anesthetic and | | closing platysma with 3-0 Vicryl. Skin was closed with running 4-0 Biosyn and the | | wounds were sealed with Dermabond. We redirected our attention to the scalp melanoma | | site. I excised the scalp melanoma down to but not through the pericranium. It was | | oriented for Pathology with sutures then stripped off the pericranium sharply with the | | needlepoint Bovie. The specimen was passed off the field. We took several minutes to | | achieve hemostasis. At this point, we scrubbed out of the case. Dr. Musa Mooney of ENT | | Plastic Surgery scrubbed into the case and performed a closure of the scalp wound. | | Jesica will dictate that separately. For our portion of the case, the estimated blood loss | | was 30 cc and the sponge and needle counts were correct. Pursuant to Federal Medicare | | billing regulations, I hereby certify that I was present and scrubbed during all the be[place]ford | | portions of this procedure.LILIANE Alatorre/CHRISTAD: 06/19/2015 15:04:28DT: 06/19/2015 | | 16:18:08Job #: [id number] | | | | | |Nikos Mchugh MD | |JV/MODL | | | | | | /[id number] | + + PROCEDURE NOTE (06/20/2015 10:45 AM PDT) + + + | Narrative | Performed At | + + + | Luc Mooney MD 06/20/2015 10:45 AM Facial Plastic and | | | Reconstructive Surgery Operative Note Attending Physician: | | | Luc Mooney MD Date: 06/19/2015 Assistants: Ritter Corbin | | | (Resident) Preop Dx: 1. History of right parietal scalp | | | melanoma 2. right parietal scalp defect measuring (3.5 x 3.5cm) | | | Postop Dx: same Procedures Performed: 1. Adjacent tissue | | | transfer repair of right scalp defect (total undermined area of | | | [id number]) Anesthesia: General Endotracheal Specimens: | | | Please see Dr. Mchugh's separately dictated operative note for | | | further details. Additional anterior and posterior margins sent to | | | pathology. Stitch marked the true margins Complications: None. | | | Estimated Blood Loss: Minimal. Urine Output: No Stanford. | | | Indications: This patient is a pleasant 84 y.o. male with a | | | history of melanoma located on the right parietal scalp. The patient | | | had planned on having wide local resection with sentinel lymph node | | | biopsy. Reconstruction would be done by our team. Therefore, we | | | proposed the aforementioned procedures and she signed an informed | | | consent electing to proceed after a PARQ session was held. | | | Procedure: The patient was brought back to the operating room and | | | laid supine on the operating room table. General anesthesia was | | | induced, and the patient was intubated without difficulty. At that | | | time, a timeout was performed and all in attendance agreed to | | | commence the operation. Local anesthesia was Administered by | | | Lolita who then performed his portion of the procedure. Please see | | | his separately dictated note for further details regarding that | | | procedure. Due to the configuration of the wound, we decided upon | | | adjacent tissue transfer followed by advancement of undermined | | | flaps. Burow's triangles were excised at the anterior and posterior | | | poles of the wound and these were sent to pathology. We then | | | undermined to a total of [id number] in a subgaleal plane. Deep wound | | | closure was then performed with interrupted 2-0 vicryl sutures. | | | Subsequently, definitive skin closure was performed with supriya. | | | Bacitracin ointment was applied to the closed wound. A wallace | | | headwrap was also placed. At the conclusion of the procedure, the | | | patient was then turned back towards Anesthesia, who then | | | extubated the patient without difficulty. The patient was then sent | | | to the recovery room in excellent condition. Luc Rhodes | | | MD [facility] [employer] Facial Plastic and Reconstructive | | | Surgery Department of Otolaryngology/ Head and Neck Surgery Tel:[phone] | | | [phone] [email or web address] | | + + + CAPILLARY BLOOD GLUCOSE (NO CHG), POC (06/19/2015 3:24 PM PDT) + +---------+ + + + | Component | Value | Ref Range | Performed | Pathologist | | | | | At | Signature | + +---------+ + + + | BLOOD | 118 (H) | 60 - 99 mg/dL | [facility] - | | | GLUCOSE, | | | [facility] | | | POC | | | [facility] [place] | | | | | | OF CARE | | | | | | TESTS | | + +---------+ + + + + + | Specimen | + + | | + + + + + + + | Performing | Address | City/State/Zipcode | Phone Number | | Organization | | | | + + + + + | [facility] | [address] | [place], [place] | | | [facility] | [address] | [address] | | | TESTS | | | | + + + + + SURGICAL PATHOLOGY (06/19/2015) + + + + + + | Component | Value | Ref Range | Performed | Pathologist | | | | | At | Signature | + + + + + + | SURGICAL | SOURCE OF SPECIMEN:A | | [facility] | | | PATHOLOGY | Right sentinel | | DEPARTMENT | | | | periparotid nodesSOURCE | | OF | | | | OF SPECIMEN:B [place] | | PATHOLOGY | | | | nodes right neck level | | | | | | 2SOURCE OF SPECIMEN:C | | | | | | Wide excision right | | | | | | scalp melanomaSOURCE OF | | | | | | SPECIMEN:D Anterior | | | | | | marginSOURCE OF | | | | | | SPECIMEN:E Posterior | | | | | | margin Final | | | | | | Pathologic Diagnosis:A: | | | | | | [place] lymph nodes, | | | | | | right anirudh-parotid, | | | | | | biopsy:- Fibroadipose | | | | | | tissue and salivary | | | | | | gland, negative for | | | | | | malignancy (seecomment) | | | | | | B: [place] | | | | | | lymph nodes, right neck | | | | | | level 2, dissection:- | | | | | | Four lymph nodes, | | | | | | negative for malignancy | | | | | | and micrometastasis | | | | | | (0/4) (seecomment) | | | | | | - Benign salivary gland | | | | | | C: Skin, right | | | | | | scalp, excision:- | | | | | | 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), spanning | | | | | | approximately 2.3 cm, | | | | | | extendingto the | | | | | | anterior-superior | | | | | | specimen margin - | | | | | | Posterior and inferior | | | | | | margins free of MIS | | | | | | - Background skin | | | | | | with solar elastosis and | | | | | | scar - Negative | | | | | | for residual invasive | | | | | | melanoma - AJCC | | | | | | Pathologic Stage: See | | | | | | comment below D: | | | | | | Skin, anterior margin, | | | | | | excision: - Skin | | | | | | with solar elastosis, | | | | | | subcutis, and skeletal | | | | | | muscle, negativefor | | | | | | malignancy E: | | | | | | Skin, posterior | | | | | | margin, excision:- Skin | | | | | | with solar elastosis and | | | | | | seborrheic keratosis, | | | | | | subcutis, andskeletal | | | | | | muscle, negative for | | | | | | malignancy | | | | | | Comment: | | | | | | Immunohistochemistry for | | | | | | SOX-10 and S-100 were | | | | | | performed onspecimens A | | | | | | and B according to the | | | | | | [facility] sentinel lymph node | | | | | | protocol formelanoma | | | | | | and reveal no metastatic | | | | | | melanoma. Based on the | | | | | | invasive melanomapresent | | | | | | only in the prior shave | | | | | | biopsy ([facility] | | | | | | [id number]) and | | | | | | theadditional | | | | | | information obtained | | | | | | from this resection | | | | | | specimen and lymph | | | | | | nodeevaluation, the AJCC | | | | | | Pathologic Stage would | | | | | | be pT1b N0 MX. This | | | | | | informationis also | | | | | | reflected in the staging | | | | | | summary below. | | | | | | Case seen by:Jolynn Mireles, | | | | | | M.D., Ph.D./Surgical | | | | | | Pathology ResidentAmanda | | | | | | VanSandt, | | | | | | D.O./PathologistT:06/22/ | | | | | | 16/rdl (Analyte | | | | | | specific reagents are | | | | | | used in many laboratory | | | | | | tests necessary | | | | | | forstandard medical | | | | | | care. This test was | | | | | | developed and its | | | | | | performancecharacteristi | | | | | | cs determined by [facility] | | | | | | laboratories. It has | | | | | | not been clearedor | | | | | | approved by the US Food | | | | | | and Drug Administration | | | | | | (FDA). FDA does | | | | | | notrequire this test to | | | | | | go through premarket FDA | | | | | | review. This test is | | | | | | usedfor clinical | | | | | | purposes. It should | | | | | | not be regarded as | | | | | | investigational or | | | | | | forresearch. This | | | | | | laboratory is certified | | | | | | under the Clinical | | | | | | LaboratoryImprovement | | | | | | Amendments (CLIA) as | | | | | | qualified to perform | | | | | | high complexityclinical | | | | | | laboratory testing.) | | | | | | Melanoma Skin | | | | | | Cancer | | | | | | SynopsisProcedure: | | | | | | Biopsy, | | | | | | shaveExcisionLymphadenec | | | | | | dorian, sentinel | | | | | | node(s)Specimen | | | | | | Laterality: | | | | | | RightTumor Site: | | | | | | Right scalpMacroscopic | | | | | | Satellite Nodule(s): | | | | | | Not | | | | | | identifiedHistologic | | | | | | Type: Melanoma, not | | | | | | otherwise | | | | | | classifiedMaximum Tumor | | | | | | Thickness: | | | | | | 0.56mmComment: Based | | | | | | solely on prior shave | | | | | | biopsyUlceration: | | | | | | Not | | | | | | identifiedMarginsPeriphe | | | | | | ral Margins: Negative | | | | | | for invasive | | | | | | melanomaInvolved by | | | | | | melanoma in situSpecify | | | | | | location(s), if | | | | | | possible: | | | | | | Anterior-superiorDeep | | | | | | Margin: Negative for | | | | | | invasive melanoma | | | | | | Mitotic Rate: >= 1/ | | | | | | ac11oiOzhkapaklrrowuobx: | | | | | | Not | | | | | | identifiedAngiolymphatic | | | | | | Invasion: AbsentLymph | | | | | | NodesNumber of sentinel | | | | | | nodes examined: 4Total | | | | | | number of nodes examined | | | | | | (sentinel and | | | | | | nonsentinel): 4Number | | | | | | of lymph nodes with | | | | | | metastases: 0AJCC | | | | | | Stage (7th Edition) | | | | | | (pTNM)Primary Tumor | | | | | | (pT): qE7bBiddhibc Lymph | | | | | | Nodes (pN): | | | | | | jT2Gtlvg Nodes | | | | | | Submitted: Number of | | | | | | lymph nodes identified: | | | | | | 4Number containing | | | | | | metastases: 0Matted | | | | | | nodes: Not | | | | | | identifiedDistant | | | | | | Metastasis (pM): Not | | | | | | applicable | | | | | | Clinical History:The | | | | | | patient is an | | | | | | 84-year-old male with | | | | | | prior excision of a | | | | | | scalp melanoma. | | | | | | Gross | | | | | | Description:Received are | | | | | | 5 specimens fresh in | | | | | | containers labeled with | | | | | | the patient'sname | | | | | | (initials ) and: | | | | | | A: Right sentinel | | | | | | anirudh-parotid nodes: | | | | | | Received are 3 | | | | | | unoriented,corrigan-brown, | | | | | | rubbery tissues | | | | | | measuring 1.2 x 0.8 x | | | | | | 0.4 cm in aggregate. | | | | | | Theentire specimen is | | | | | | submitted. B: | | | | | | [place] nodes right | | | | | | neck level 2: Received | | | | | | are 4 unoriented, | | | | | | corrigan-red,soft, rubbery | | | | | | tissues, measuring 1.2 x | | | | | | 1.1 x 0.5 cm in | | | | | | aggregate. Theentire | | | | | | specimen is submitted. | | | | | | C: Wide excision | | | | | | right scalp melanoma: | | | | | | Received is a circular | | | | | | tanexcision specimen | | | | | | measuring 3.5 (SI) x 3 | | | | | | (AP) cm and excised to a | | | | | | depth of0.5 cm. There | | | | | | is a short stitch | | | | | | marking superior margin | | | | | | and a long stitchmarking | | | | | | anterior margin. The | | | | | | surface of the skin | | | | | | shows a blue | | | | | | circlemeasuring 1.8 cm | | | | | | in diameter. The | | | | | | superior margin is | | | | | | designated as 12:00and | | | | | | the anterior margin is | | | | | | designated as 3:00. | | | | | | The specimen is inked | | | | | | from12:00-3:00 blue, | | | | | | 3:00-9:00 green, | | | | | | 6:00-9:00 orange, and | | | | | | 9:00-12:00 black.The | | | | | | specimen is serially | | | | | | sectioned from superior | | | | | | to inferior into 9 | | | | | | slices.Slice 1 is the | | | | | | superior margin and | | | | | | slice 9 is the inferior | | | | | | margin. Theentire | | | | | | specimen is sequentially | | | | | | submitted from superior | | | | | | to inferior. D: | | | | | | Anterior margin-stitch | | | | | | murray true margin: | | | | | | Received is an | | | | | | irregularskin excision | | | | | | specimen measuring 2.7 x | | | | | | 2.6 cm and excised to a | | | | | | depth of 0.6cm. There | | | | | | is a stitch marking the | | | | | | true margin. The true | | | | | | margin is inkedblack. | | | | | | The specimen is | | | | | | serially sectioned. | | | | | | The entire specimen | | | | | | issubmitted. E: | | | | | | Posterior | | | | | | margin-stitch murray true | | | | | | margin: Received is a | | | | | | triangularskin excision | | | | | | specimen measuring 3 x | | | | | | 2.6 cm excised to a | | | | | | depth of 0.7 cm.There is | | | | | | a stitch marking the | | | | | | true margin. The true | | | | | | margin is inked | | | | | | black.The specimen is | | | | | | serially sectioned into | | | | | | 9 slices. The entire | | | | | | specimen issubmitted. | | | | | | Cassette Index:A: | | | | | | Right sentinel | | | | | | anirudh-parotid nodes:A1B: | | | | | | [place] nodes right | | | | | | neck level 2:B1C: Wide | | | | | | excision right scalp | | | | | | melanoma:C1, superior | | | | | | and inferior marginsC2, | | | | | | slices 2 and 3C3, slices | | | | | | 4 and 5C4, slices 6 and | | | | | | 7C5, slice 8D: | | | | | | Anterior margin-stitch | | | | | | murray true | | | | | | margin:D1-4E: | | | | | | Posterior | | | | | | margin-stitch murray true | | | | | | margin:E1-4YW/roseanne | | | | | | My electronic signature | | | | | | indicates that I have | | | | | | personally reviewed | | | | | | alldiagnostic slides, | | | | | | the gross and/or | | | | | | microscopic portion of | | | | | | thisreport and | | | | | | formulated the final | | | | | | diagnosis. | | | | | | Rendering Diagnostician: | | | | | | Radha Ocampo | | | | | | DOPathologistElectroncarlita | | | | | | margaret Signed 06/24/2015 | | | | | | 2:55PM | | | | + + + [...] | + + + + + | [facility] | [address] | [place] [address] | | | PATHOLOGY | [address] | | | + + + + + CARDIOLOGY (06/19/2015 12:00 AM PDT) + + + | Narrative | Performed At | + + + | | | + + + documented in this encounter Visit Diagnoses Not on filedocumented in this encounter Administered Medications + +--------+ +--------+------+------+ | Medication Order | MAR | Action | Dose | Rate | Site | | | Action | Date | | | | + +--------+ +--------+------+------+ | acetaminophen (TYLENOL) tablet | Given | 06/20/19 | 325 mg | | | | 325 mg 325 mg, oral, EVERY 6 | | 16 10:26 | | | | | HOURS, First dose on Mon06/19/15 | | AM PDT | | | | | at 2200, Until Discontinued | | | | | | + +--------+ +--------+------+------+ +-------+ +--------+---+---+ | Given | 06/20/19 | 325 mg | | | | | 16 4:01 | | | | | | AM PDT | | | | +-------+ +--------+---+---+ | Given | 06/19/19 | 325 mg | | | | | 16 8:34 | | | | | | PM PDT | | | | +-------+ +--------+---+---+ +---+---+ | | | +---+---+ + +-------+ +-------+---+---+ | amLODIPine (NORVASC) tablet 10 | Given | 06/20/19 | 10 mg | | | | mg 10 mg, oral, DAILY, First | | 16 8:42 | | | | | dose on Mon06/19/15 at 2000, Until | | AM PDT | | | | | Discontinued | | | | | | + +-------+ +-------+---+---+ +-------+ +-------+---+---+ | Given | 06/19/19 | 10 mg | | | | | 16 7:40 | | | | | | PM PDT | | | | +-------+ +-------+---+---+ +---+---+ | | | +---+---+ + +-------+ +-------+---+---+ | atenolol (TENORMIN) tablet 50 | Given | 06/20/19 | 50 mg | | | | mg 50 mg, oral, TWICE DAILY, | | 16 8:42 | | | | | First dose on Mon06/19/15 at 2100, | | AM PDT | | | | | Until Discontinued | | | | | | + +-------+ +-------+---+---+ +-------+ +-------+---+---+ | Given | 06/19/19 | 50 mg | | | | | 16 7:40 | | | | | | PM PDT | | | | +-------+ +-------+---+---+ +---+---+ | | | +---+---+ + +-------+ + +---+ + | bacitracin ointment | Given | 06/19/19 | 5 strips | | Surgical | | INTRAPROCEDURE PRN, Starting Mon | | 16 2:56 | | | Site | | 06/19/15 at 1456, Until Mon06/19/15 | | PM PDT | | | | | at 1502 | | | | | | + +-------+ + +---+ + +---+---+ | | | +---+---+ + +-------+ +-------+---+ + | bupivacaine-EPINEPHrine | Given | 06/19/19 | 12 mL | | Surgical | | (MARCAINE-EPINEPHRINE) 0.25 | | 16 2:54 | | | Site | | %-1:200,000 injection | | PM PDT | | | | | INTRAPROCEDURE PRN, Starting Fri | | | | | | | 06/19/15 at 1454, Until 06/19/15 | | | | | | | at 1502 | | | | | | + +-------+ +-------+---+ + +---+---+ | | | +---+---+ + +-------+ +-------+---+---+ | furosemide (LASIX) tablet 20 mg | Given | 06/20/19 | 20 mg | | | | 20 mg, oral, DAILY, First dose | | 16 8:42 | | | | | on 06/20/15 at 0900, Until | | AM PDT | | | | | Discontinued | | | | | | + +-------+ +-------+---+---+ +---+---+ | | | +---+---+ + +---------+ +--------+---+---+ | HYDROmorphone (DILAUDID) | New Bag | 06/19/19 | 0.5 mg | | | | injection 0.2-0.6 mg 0.2-0.6 mg, | | 16 7:39 | | | | | intravenous, EVERY 2 HOURS | | PM PDT | | | | | NEEDED, Starting Mon06/19/15 at | | | | | | | 1805, Until Mon06/19/15 at 2129, | | | | | | | severe pain | | | | | | + +---------+ +--------+---+---+ +---+---+ | | | +---+---+ + +---------+ +--------+---+---+ | HYDROmorphone (DILAUDID) | New Bag | 06/19/19 | 0.6 mg | | | | injection 0.2-0.6 mg 0.2-0.6 mg, | | 16 9:44 | | | | | intravenous, EVERY 2 HOURS | | PM PDT | | | | | NEEDED, Starting Mon06/19/15 at | | | | | | | 2130, Until 06/20/15 at 1820, | | | | | | | severe pain | | | | | | + +---------+ +--------+---+---+ +---+---+ | | | +---+---+ + +-------+ +--------+---+ + | isosulfan blue (LYMPHAZURIN) | Given | 06/19/19 | 0.5 mL | | Surgical | | injection INTRAPROCEDURE PRN, | | 16 2:53 | | | Site | | Starting Mon06/19/15 at 1453, | | PM PDT | | | | | Until Mon06/19/15 at 1502 | | | | | | + +-------+ +--------+---+ + +---+---+ | | | +---+---+ + + + +---+---+---+ | NaCl 0.9 % solution 10 mL/hr, | given by | 06/19/19 | | | | | intravenous, PROCEDURE | | 16 3:11 | | | | | CONTINUOUS, Starting Mon06/19/15 | anesthes | PM PDT | | | | | at 1200, Until 06/19/15 at 1853 | iology | | | | | + + + +---+---+---+ +---------+ + + +---+ | New Bag | 06/19/19 | 10 mL/hr | 10 mL/hr | | | | 16 12:15 | | | | | | PM PDT | | | | +---------+ + + +---+ +---+---+ | | | +---+---+ + +-------+ +-------+---+---+ | omeprazole (PRILOSEC) capsule | Given | 06/20/19 | 20 mg | | | | 20 mg 20 mg, oral, BEFORE | | 16 6:42 | | | | | BREAKFAST, First dose on Sat | | AM PDT | | | | | 06/20/15 at 0630, Until | | | | | | | Discontinued | | | | | | + +-------+ +-------+---+---+ +---+---+ | | | +---+---+ + +-------+ +------+---+---+ | oxycodone (immediate release) | Given | 06/20/19 | 5 mg | | | | (ROXICODONE) tablet 2.5-12.5 mg | | 16 10:26 | | | | | 2.5-12.5 mg, oral, EVERY 3 HOURS | | AM PDT | | | | | NEEDED, Starting 06/19/15 at | | | | | | | 2129, Until 06/20/15 at 1820, | | | | | | | moderate pain | | | | | | + +-------+ +------+---+---+ +-------+ +------+---+---+ | Given | 06/20/19 | 5 mg | | | | | 16 6:42 | | | | | | AM PDT | | | | +-------+ +------+---+---+ | Given | 06/20/19 | 5 mg | | | | | 16 4:01 | | | | | | AM PDT | | | | +-------+ +------+---+---+ +---+---+ | | | +---+---+ + +-------+ +--------+---+---+ | oxycodone (immediate release) | Given | 06/19/19 | 2.5 mg | | | | (ROXICODONE) tablet 2.5-7.5 mg | | 16 8:34 | | | | | 2.5-7.5 mg, oral, EVERY 3 HOURS | | PM PDT | | | | | NEEDED, Starting Mon06/19/15 at | | | | | | | 1805, Until Mon06/19/15 at 2129, | | | | | | | moderate pain | | | | | | + +-------+ +--------+---+---+ +-------+ +------+---+---+ | Given | 06/19/19 | 5 mg | | | | | 16 7:39 | | | | | | PM PDT | | | | +-------+ +------+---+---+ +---+---+ | | | +---+---+ + +-------+ +------+---+---+ | oxyCODONE (immediate release) | Given | 06/19/19 | 5 mg | | | | (ROXICODONE) tablet 5-10 mg 5-10 | | 16 4:29 | | | | | mg, oral, EVERY 4 HOURS | | PM PDT | | | | | NEEDED, Starting Mon06/19/15 at | | | | | | | 1313, Until Mon06/19/15 at 1921, | | | | | | | severe pain | | | | | | + +-------+ +------+---+---+ + +---+ | | | + +---+ | oxyCODONE (immediate release) | | | (ROXICODONE) tablet 1 dose, | | | Starting Mon06/19/15 at 1628, | | | Until Mon06/19/15 at 1629 | | + +---+ | | | + +---+ documented in this encounter
--- OUTSIDE RECORDS SUMMARY | ~2019-10-06 | XMS | Encounter Summary ---
Demographics + + + | Address | [address] | | | [place] [address] | + + + | Home Phone | | + + + | Preferred Language | Unknown | + + + | Marital Status | | + + + | Anabaptism Affiliation | NON | + + + | Race | White | + + + | Ethnic Group | Not or | + + + Author + + + | Author | [facility] | + + + | Organization | [facility] | + + + | Address | Unknown | + + + | Phone | Unavailable | + + + Support + + + + + | Name | Relationship | Address | Phone | + + + + + | Nancy Douglass | ECON | [address] | | | | | [place] | | | | | [address] | | + + + + + Care Team Providers + +------+ + | Care Master Deputy [address] Security Name | Role | Phone | + +------+ + | Asael Mendez MD | PCP | | + +------+ + Encounter Details +--------+ + + + + | Date | Type | Department | Care Team | Description | +--------+ + + + + | 06/26/ | Documentati | Surgical Oncology | Nikos Mchugh MD | | | 2016 | on | at [facility] [address] | [address] | | | | | [address] [facility] | [place], [place] | | | | | Health and Healing, | [address] | | | | | [address] | [phone] | | | | | [place], [place] | | | | | | [address] | | | | | | [phone] | | | +--------+ + + + [...]
--- OUTSIDE RECORDS SUMMARY | ~2019-10-06 | XMS | Encounter Summary ---
Demographics + + + | Address | [address] | | | [place] [address] | + + + | Home Phone | | + + + | Preferred Language | Unknown | + + + | Marital Status | | + + + | Orthodoxy Affiliation | NON | + + + | Race | White | + + + | Ethnic Group | Not or | + + + Author + + + | Author | [facility] | + + + | Organization | [facility] | + + + | [...] [place] | | | | | [address] | | + + + + + Care Team Providers + +------+ + | Care Wood Heel Flap Trimmer Name | Role | Phone | + +------+ + | Asael Mendez MD | PCP | | + +------+ + Reason for Visit +---------+ + | Reason | Comments | +---------+ + | Post Op | | +---------+ + PROC - Outpatient Surgery (Routine) +--------+--------+ + + + + | Status | Reason | Specialty | Diagnoses / | Referred By | Referred To | | | | | Procedures | Contact | Contact | +--------+--------+ + + + + | Closed | | Facial | Diagnoses | [facility], | [facility], | | | | Plastic | Malignant | Luc M, | Luc Cleveland MD | | | | Surgery | melanoma of | MD [address] | | | | | scalp and | [address] | [address] | | | | | neck | [place], [place] | [place], [place] | | | | | Procedures | [id number] | [address] | | | | | [place] ADJ TISS | | | | | | | XFER | | | | | | | SCALP,EXTREM | | | | | | | 10.1-30 [place] | | | | | | | SKIN TISSUE | | | | | | | | | | | | | | REARRANGEMEN | | | | | | | T [place] SKIN | | | | | | | TISSUE | | | | | | | REARRANGEMEN | | | | | | | T ADD-ON [place] | | | | | | | FULL THICK | | | | | | | GRFT | | | | | | | SCALP,ARM,LE | | | | | | | G <20SQC [place] | | | | | | | FULL THICK | | | | | | | GRFT | | | | | | | SCALP,ARM | | | | | | | ADD 20SQCM | | | | | | | [place] SPLIT | | | | | | | GRFT,HEAD,FA | | | | | | | C,HAND,FEET | | | | | | | <100CM [place] | | | | | | | WND PREP | | | | | | | CH/INF, | | | | | | | F/N/HF/G 90 | | | | | | | G | | | +--------+--------+ + + + + Encounter Details +--------+---------+ + + + | Date | Type | Department | Care Team | Description | +--------+---------+ + + + | 06/29/ | Office | Otolaryngology | Luc Mooney MD | Melanoma of scalp | | 2016 | Visit | Facial Plastics & | | ([facility]) (Primary Dx) | | | | Reconstructive | | | | | | Services at [facility] | | | | | | [address] | | | | | | [facility] | | | | | | and Healing, | | | | | | [address] | | | | | | [place], [place] | | | | | | [address] | | | | | | [phone] | | | +--------+---------+ + + + [...] documented as of this encounter Progress Notes Luc Mooney MD - 06/30/2015 2:36 PM PDTI have reviewed and verified the above scribed note of my visit with this patient as recorded by Wong Cagle. Luc Mooney MD Insight Leader Facial Plastic and Reconstructive Surgery Department of Otolaryngology/ Head and Neck Surgery [email or web address] Cagle - 2:10 PM PDTClinic: Facial Plastic and Reconstructive Surgery Stan Douglass returns 11 days after his adjacent tissue transfer repair of right parie hua scalp defect, with wide excision and SLNBx by Dr. Mchugh, done on 06/19/2015. He reports that he has some decreased sensation around his right ear, but is doing well overall. He c roderick in with his . The reconstructed areas are healing nicely and look quite good overall . Incisions are clean dry and intact. Overall, I am pleased with his progress as is the desirae ent. I advised pt to keep the incision moist with Vaseline. I have asked him to followup in [place], as [place]. Signed: Wong Calge (scribe for Dr. 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
--- OUTSIDE RECORDS SUMMARY | ~2019-10-06 | XMS | Encounter Summary ---
Demographics + + + | Address | [address] | | | [place] [address] | + + + | Home Phone | | + + + | Preferred Language | Unknown | + + + | Marital Status | | + + + | Adventism Affiliation | NON | + + + | Race | White | + + + | Ethnic Group | Not or | + + + Author + + + | Author | [facility] | + + + | Organization | [facility] | + + + | Address | Unknown | + + + | Phone | Unavailable | + + + Support + + + + + | Name | Relationship | Address | Phone | + + + + + | Nancy Douglass | ECON | [address] | | | | | [place] | | | | | [address] | | + + + + + Care Team Providers + +------+ + | Care Groundskeeping Maintenance Worker Name | Role | Phone | + +------+ + PCP | Unavailable | + +------+ + Encounter Details +--------+ + + + + | Date | Type | Department | Care Team | Description | +--------+ + + + + | 05/20/ | Hospital | Dermatopathology | | | | 2016 | Encounter | [address] | | | | | | Mailcode: [id number] | | | | | | [facility] | | | | | | and Healing, | | | | | | Building , | | | | | | Floor [place], [place] | | | | | | [address] | | | | | | [phone] | | | +--------+ + + + [...] | + +--------+ + + + | DERMATOPATHOLOGY(CON | Routin | 05/21/2015 | | Results for this | | SULT) | e | | | procedure are in the | | | | | | results section. 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 Mchugh: | | | | | | In the right lateral | | | | | | frontal scalp shave | | | | | | biopsy (A), there is a | | | | | | broadand asymmetrical | | | | | | compound melanocytic | | | | | | neoplasm composed of | | | | | | varying in sizenests of | | | | | | melanocytes and | | | | | | increased numbers of | | | | | | single melanocytes along | | | | | | theepidermal basal cell | | | | | | layer and nests of | | | | | | similar in appearance | | | | | | melanocytesin the | | | | | | dermis. Spinous layer | | | | | | involvement is present. | | | | | | The melanocytic | | | | | | nucleiare moderately | | | | | | large, many are | | | | | | pleomorphic and | | | | | | hyperchromatic, and | | | | | | thecells have pale | | | | | | staining cytoplasm. | | | | | | There is subtle dermal | | | | | | fibrosis and | | | | | | anaccompanying | | | | | | infiltrate, composed of | | | | | | lymphocytes and some | | | | | | melanophages. | | | | | | In the left vertex of | | | | | | scalp shave biopsy (B), | | | | | | there is an | | | | | | asymmetric,poorly | | | | | | circumscribed neoplasm | | | | | | characterized by | | | | | | irregularly sized | | | | | | aggregatesof atypical | | | | | | epithelial cells within | | | | | | the dermis. The | | | | | | epithelial cell | | | | | | nucleiare pleomorphic | | | | | | and hyperchromatic and | | | | | | most of the cells have | | | | | | eosinophiliccytoplasm. | | | | | | DIAGNOSIS:A: | | | | | | MELANOMA, RIGHT LATERAL | | | | | | FRONTAL SCALP, MEASURING | | | | | | AT LEAST 0.56 MM | | | | | | INTHICKNESS, | | | | | | NON-ULCERATED. | | | | | | NOTE: The melanoma | | | | | | extends to the deep | | | | | | surgical margin of the | | | | | | shavespecimen, making | | | | | | precise thickness | | | | | | determination difficult; | | | | | | therefore,final | | | | | | thickness determination | | | | | | and AJCC staging of this | | | | | | melanoma will | | | | | | bedeferred to the | | | | | | excision specimen. There | | | | | | is one dermal | | | | | | melanocyte inmitosis | | | | | | /mm2. The MELANOMA | | | | | | extends to the surgical | | | | | | margins of the | | | | | | shavespecimen and | | | | | | additional treatment to | | | | | | assure complete removal | | | | | | would beprudent. | | | | | | MELANOMA SYNOPTIC | | | | | | REPORT:Tumor thickness | | | | | | (Breslow): at least | | | | | | 0.56mm.Ulceration: not | | | | | | present.Mitotic rate: | | | | | | one dermal melanocyte in | | | | | | mitosis/ox2Nlaxvfgild | | | | | | margins: positive for | | | | | | melanoma in situ.Deep | | | | | | margin: positive for | | | | | | melanoma.Microsatellitos | | | | | | is: not | | | | | | identified.Lymphovascula | | | | | | r invasion: not | | | | | | identified.Perineural | | | | | | invasion: not | | | | | | identified.Tumor | | | | | | infiltrating | | | | | | lymphocytes: | | | | | | present.Tumor | | | | | | regression: | | | | | | indeterminate.AJCC | | | | | | staging (7th edition): | | | | | | pT1b, pNx, pMx (please | | | | | | see note above). | | | | | | B: SQUAMOUS CELL | | | | | | CARCINOMA. NOTE: | | | | | | The left of vertex scalp | | | | | | SQUAMOUS CELL CARCINOMA | | | | | | extends to thesurgical | | | | | | margins of the specimen. | | | | | | Materials | | | | | | Returned: [id number] A1 | | | | | | (1 slide, level 1,2, 3) | | | | | | | | | | | | | | | | | | B1 (3 slides,level 1, 2, | | | | | | 3) x 4 slides. | | | | | | VBK:/ My | | | | | | electronic signature | | | | | [...] Diagnostician: | | | | | | Gracia Chaudhry | | | | | | GermainePathologistVargasi | | | | | | idania Signed 06/05/2015 | | | | | | 11:43AM | | | | + + + [...] + + + + + | [facility] | Mailcode [id number] | [place] [address] | | | DERMATOPATHOLOGY | [address] | | | + + + + + documented in this encounter Visit Diagnoses Not on filedocumented in this encounter"
--- OUTSIDE RECORDS SUMMARY | ~2019-10-06 | XMS | Encounter Summary ---
Demographics + + + | Address | [address] | | | [place] [address] | + + + | Home Phone | | + + + | Preferred Language | Unknown | + + + | Marital Status | | + + + | Tenriism Affiliation | [id number] | + + + | Race | Unknown | + + + | Ethnic Group | Unknown | + + + Author + + + | Author | [facility] | | | and [place] | + + + | Organization | [facility] | | | and [place] | + + + | Address | Unknown | + + + | Phone | Unavailable | + + + Support + + + + + | Name | Relationship | Address | Phone | + + + + + | Mikki Douglass | ECON | [address] [place] | | | | | [address] | | + + + + + | Jameel Douglass | ECON | Unknown | | + + + + + Care Team Providers + +------+ + | Care Picture Frames Inspector Name | Role | Phone | + +------+ + PCP | Unavailable | + +------+ + Encounter Details +--------+ + + + + | Date | Type | Department | Care Team | Description | +--------+ + + + + | 10/20/ | Hospital | [facility] | Nereyda Klein MD | [facility] | | 2002 - | Encounter | [facility] | [address] | [facility] ([facility]) | | | | CARE FLOOR [address] | [address] | | | 10/21/ | | [address] | [place], [place] | | | 2002 | | [place], [place] | [address] | | | | | [address] | [phone] | | | | | [phone] | | | +--------+ + + + [...] on file | | + + + documented as of this encounter Plan of Treatment Not on filedocumented as of this encounter Visit Diagnoses + + | Diagnosis | + + | Acute myocardial infarction, subendocardial infarction, initial episode of care (HCC) | | Acute myocardial infarction, subendocardial infarction, initial episode of care | + + documented in this encounter"
--- OUTSIDE RECORDS SUMMARY | ~2019-10-06 | XMS | Encounter Summary ---
Demographics + + + | Address | [address] | | | [place] [address] | + + + | Home Phone | | + + + | Preferred Language | Unknown | + + + | Marital Status | | + + + | Muslim Affiliation | NON | + + + | Race | White | + + + | Ethnic Group | Not or | + + + Author + + + | Author | [facility] | + + + | Organization | [facility] | + + + | [...] [place] | | | | | [address] | | + + + + + Care Team Providers + +------+ + | Care Echo Tech Name | Role | Phone | + +------+ + | Asael Mendez MD | PCP | | + +------+ + Reason for Visit Consultation (Routine) +--------+--------+ + + + + | Status | Reason | Specialty | Diagnoses / | Referred By | Referred To | | | | | Procedures | Contact | Contact | +--------+--------+ + + + + | Closed | | Surgical | Diagnoses | Kamari | Lolita | | | | Oncology | Melanoma | Stefanie Amaro MD | MD Nikos | | | | | ([facility]) | [address] | | | | | | [address] | [address] | | | | | | [place], | [place], [place] | | | | | | [place] [address] | [address] | | | | | | Phone: | Phone: | | | | | | [phone] | [phone] | | | | | | Fax: | Fax: | | | | | | [phone] | [phone] | +--------+--------+ + + + + Encounter Details +--------+---------+ + + + | Date | Type | Department | Care Team | Description | +--------+---------+ + + + | 06/29/ | Office | Surgical Oncology | Nikos Mchugh MD | Melanoma of scalp | | 2016 | Visit | at [facility] [address] | [address] | (HCC) (Primary Dx) | | | | Ave Center for | [place], [place] | | | | | Health and Healing, | [address] | | | | | Building [address] | [phone] | | | | | [facility] [place] | | | | | | [address] | | | | | | [phone] | | | +--------+---------+ + + + [...] + +---+---+ + + + | Comments: 03/14 can/day | + + + + +---------+ [...] Pressure | 152/72 | 06/30/2015 12:59 PM | | | | | PDT | | + + + + + | Pulse | 55 | 06/30/2015 12:59 PM | | | | | PDT | | + + + + + | Temperature | 36.5 C (97.7 F) | 06/30/2015 12:59 PM | | | | | PDT | | + + + + + | Respiratory Rate | 16 | 06/30/2015 12:59 PM | | | | | PDT | | + + + + + | Oxygen Saturation | - | - | | + + + + + | Inhaled Oxygen | - | - | | | Concentration | | | | + + + + + | Weight | 104.3 kg (230 lb) | 06/30/2015 12:59 PM | Pt. refused to | | | | PDT | remove shoes for | | | | | weight | + + + + + | Height | - | - | | + + + + + | Body Mass Index | 33 | 06/02/2015 4:05 PM | | | | | PDT | | + + + + + documented in this encounter Progress Notes Nikos Mchugh MD - 06/30/2015 1:50 PM PDTFormatting of this note might be different from kali hutton. SURGICAL ONCOLOGY CLINIC NOTE 06/30/2015 Reason for Visit: Melanoma of the scalp Consulting Provider: Stefanie Benites History of Present Illness: Stan Douglass is a 84 y.o. male from [place] who present ed with a suspicious pigmented lesion of the scalp. This occurred at the site of a prior exc ision. Partial biopsy by Dr Benites was read at [facility] as melanoma, at least 0.57mm, in radial growth phase, with no ulceration or LVI but 1 miosis/mm2. [facility] Path review confirmed this r eport. The patient now presents s/p wide excision and surgical staging here at [facility] for his T1nN0, IB melanoma. I called the patient today and informed him that his path showed no tumo r in 4 SLNs. The We contained a fair amount of residual MIS. It extended to 2 margins, at le ast one of which has been excised. (see below) Review of Systems: Per resident note Past Medical History Diagnosis Date Arthropathy CAD (coronary artery disease) Hearing loss Essential hypertension Hyperlipidemia BPH (benign prostatic hyperplasia) DM2 (diabetes mellitus, type 2) (HCC) Lumbago Chronic renal failure Sleep apnea uses CPAP GERD (gastroesophageal reflux disease) Past Surgical History Procedure Laterality Date Appendectomy 1947 Back surgery 1959 fusion Hernia repair Tonsillectomy 1936 Sinus surgery 1989 Excision of hemorrhoids 1955 Shoulder surgery 09/2004 Heart catheterization 10/20/04, 10/02/03 Melanoma 2008 Allergies Allergen Reactions Cardura [Doxazosin Mesylate] Unknown Pt does not recall Hlywflk-Jir-Woy Reductase Inhibitors Arthralgia Tetracycline Unknown Blisters Tomato Unknown Blisters No outpatient prescriptions have been marked as taking for the 06/30/15 encounter (Office Vi sit) with Nikos Mchugh MD. FamHx noncontributory Social History: History Social History Marital Status: Spouse Name: N/A Number of Children: N/A Years of Education: N/A Occupational History Not on file. Social History Main Topics Smoking status: Former Smoker -- 2.00 packs/day Types: Cigarettes Quit date: 06/01/1956 Smokeless tobacco: Former User Quit date: 03/13/1964 Comment: 1/2 can/day Alcohol Use: 0.6 oz/week 1 Standard drinks or equivalent per week Drug Use: No Sexual Activity: No Other Topics Concern Not on file Social History Narrative ROS per resident note Physical examination: Older w male no acute distress BP 152/72 | Pulse 55 | Temp (Src) 36.5 C (97.7 F) (Oral) | RR 16 | Wt 104.327 kg (230 l b) | BMI 33 kg/(m^2) Sclera: anicteric Neck: supple. Nodes: No supraclavicular, cervical, axillary, inguinal, femoral, popliteal, or epitrochlea r nodes on either side. SLN sites Ok. supervisor tellers intact Lungs: clear to auscultation Heart tones regular without murmur or gallop Abdomen: present old scars. No organomegaly or masses Skin: Extensive solar changes on scalp. Healing WE scar on the R parietal scalp above and i n front of the ear. The We included the pigmented patch (see previous note). No new lesion s or any early satellite or in-transit disease. Extremities: No edema Path: SOURCE OF SPECIMEN:A Right lateral frontal scalp biopsy SOURCE OF SPECIMEN:B Left vertex of scalp biopsy CLINICAL DESCRIPTION: A: Malignant melanoma. 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 Materials Received: [id number] A1 (1 slide, level 1,2, 3) B1 (3 slides, level 1, 2, 3) x [address] Mchugh: In the right lateral frontal scalp shave biopsy (A), there is a broad and asymmetrical compound melanocytic neoplasm composed of varying in size nests of melanocytes and increased numbers of single melanocytes along the epidermal basal cell layer and nests of similar in appearance melanocytes in the dermis. Spinous layer involvement is present. The melanocytic nuclei are moderately large, many are pleomorphic and hyperchromatic, and the cells have pale staining cytoplasm. There is subtle dermal fibrosis and an accompanying infiltrate, composed of lymphocytes and some melanophages. In the left vertex of scalp shave biopsy (B), there is an asymmetric, poorly circumscribed neoplasm characterized by irregularly sized aggregates of atypical epithelial cells within the dermis. The epithelial cell nuclei are pleomorphic and hyperchromatic and most of the cells have eosinophilic cytoplasm. DIAGNOSIS: A: MELANOMA, RIGHT LATERAL FRONTAL SCALP, MEASURING AT LEAST 0.56 MM IN THICKNESS, NON-ULCERATED. NOTE: The melanoma extends to the deep surgical margin of the shave specimen, making precise thickness determination difficult; therefore, final thickness determination and AJCC staging of this melanoma will be deferred to the excision specimen. There is one dermal melanocyte in mitosis /mm2. The MELANOMA extends to the surgical margins of the shave specimen and additional treatment to assure complete removal would be prudent. MELANOMA SYNOPTIC REPORT: Tumor thickness (Breslow): at least 0.56mm. Ulceration: not present. Mitotic rate: one dermal melanocyte in mitosis/mm2 Peripheral margins: positive for melanoma in situ. Deep margin: positive for melanoma. Microsatellitosis: not identified. Lymphovascular invasion: not identified. Perineural invasion: not identified. Tumor infiltrating lymphocytes: present. Tumor regression: indeterminate. AJCC staging (7th edition): pT1b, pNx, pMx (please see note above). B: SQUAMOUS CELL CARCINOMA. NOTE: The left of vertex scalp SQUAMOUS CELL CARCINOMA extends to the surgical margins of the specimen. Materials Returned: [id number] A1 (1 slide, level 1,2, 3) B1 (3 slides, level 1, 2, 3) x 4 slides. VBK:mm 06/03/15 My electronic signature indicates that I have personally reviewed all diagnostic slides, the gross and/or microscopic portion of this report and formulated the final diagnosis. Rendering Diagnostician: Gracia Chaudhry M.D. Pathologist Electronically Signed 06/05/2015 11:43AM SURGICAL PATHOLOGY Date Value Ref Range Status 06/19/2015 Final SOURCE OF SPECIMEN:A Right sentinel periparotid nodes SOURCE OF SPECIMEN:B Winigan nodes right neck level 2 SOURCE OF SPECIMEN:C Wide excision right scalp melanoma SOURCE OF SPECIMEN:D Anterior margin SOURCE OF SPECIMEN:E Posterior margin Final Pathologic Diagnosis: A: Winigan lymph nodes, right anirudh-parotid, biopsy: - Fibroadipose tissue and salivary gland, negative for malignancy (see comment) B: Winigan lymph nodes, right neck level 2, dissection: - Four lymph nodes, negative for malignancy and micrometastasis (0/4) (see comment) - Benign salivary gland C: Skin, right scalp, excision: - Residual melanoma in situ (MIS), spanning approximately 2.3 cm, extending to the anterior-superior specimen margin - Posterior and inferior margins free of MIS - Background skin with solar elastosis and scar - Negative for residual invasive melanoma - AJCC Pathologic Stage: See comment below D: Skin, anterior margin, excision: - Skin with solar elastosis, subcutis, and skeletal muscle, negative for malignancy E: Skin, posterior margin, excision: - Skin with solar elastosis and seborrheic keratosis, subcutis, and skeletal muscle, negative for malignancy Comment: Immunohistochemistry for SOX-10 and S-100 were performed on specimens A and B according to the [facility] sentinel lymph node protocol for melanoma and reveal no metastatic melanoma. Based on the invasive melanoma present only in the prior shave biopsy ([facility] [id number]) and the additional information obtained from this resection specimen and lymph node evaluation, the AJCC Pathologic Stage would be pT1b N0 MX. This information is also reflected in the staging summary below. Case seen by: Jolynn Mireles M.D., Ph.D./Surgical Pathology Resident Radha Ocampo D.O./Pathologist /flori (Analyte specific reagents are used in many laboratory tests necessary for standard medical care. This test was developed and its performance characteristics determined by [facility] [employer]. It has not been cleared or approved by the US Food and Drug Administration (FDA). FDA does not require this test to go through premarket FDA review. This test is used for clinical purposes. It should not be regarded as investigational or for research. This laboratory is certified under the Clinical Laboratory Improvement Amendments (CLIA) as qualified to perform high complexity clinical laboratory testing.) Melanoma Skin Cancer Synopsis Procedure: Biopsy, shave Excision Lymphadenectomy, sentinel node(s) Specimen Laterality: Right Tumor Site: Right scalp Macroscopic Satellite Nodule(s): Not identified Histologic Type: Melanoma, not otherwise classified Maximum Tumor Thickness: 0.56mm Comment: Based solely on prior shave biopsy Ulceration: Not identified Margins Peripheral Margins: Negative for invasive melanoma Involved by melanoma in situ Specify location(s), if possible: Anterior-superior Deep Margin: Negative for invasive melanoma Mitotic Rate: >= 1/ mm2 1mm Microsatellitosis: Not identified Angiolymphatic Invasion: Absent Lymph Nodes Number of sentinel nodes examined: 4 Total number of nodes examined (sentinel and nonsentinel): 4 Number of lymph nodes with metastases: 0 AJCC Stage (7th Edition) (pTNM) Primary Tumor (pT): pT1b Regional Lymph Nodes (pN): pN0 Lymph Nodes Submitted: Number of lymph nodes identified: 4 Number containing metastases: 0 Matted nodes: Not identified Distant Metastasis (pM): Not applicable CXR and LDH negative [place] Class 1 Assessment: Path stage T1bN0, IB melanoma of the scalp, s/p wide excision and surgical stag ing . The path showed extensive MIS Extending to any and inf margins. The ant margin was re -excised and was negative. The post margin was re-excsied and was negative-I wonder if Plast ics called heh inf margin posterior. Regardless,the tumor is low risk and the pt is well fol lowed by Derm, so I do not feel strongly about another re-excsion unless favored by Dr. Adin adams. The entire area is likely a "field" of solar damage that needs to be followed clinically regardless. Plan: D/c from this clinic See Plastics today Longer term f/u with Dr Beniets. 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 RTc prn I performed a history and physical examination of the patient and discussed his management with the resident. I reviewed the resident s note and agree with the documented findings and plan of care. Nikos Mchugh MD SURGICAL ONCOLOGY AT [facility] [id number] [place], [place] [address] Trinh Taylor Md - 06/29 1:20 PM PDT [facility] Department of Surgery [facility] Surgery Clinic Note Author: Trinh Bolden MD Attending Physician: Nikos Mchugh MD Date: 06/30/2015 ID: Stan Douglass is a 84 y.o. male with pT1bN0 0.57mm right scalp melanoma s/p WE and R periparotid and level II SLNB with Dr. Mchugh and closure with Dr. Mooney on 06/19/15 who prese nts for postoperative check. His preoperative CXR was negative and LDH was 237. Interval History: [place] test returned as class 1. Doing well postoperatively, supriya in p lace. Denies pain, fevers/chills, erythema, or drainage. Review of Systems: A full 10 point review of systems was completed and is negative, except for the pertinent positives and negatives noted above in the history of present illness. Medications: amLODIPine 5 mg oral tablet, Take 10 mg by mouth once daily. aspirin EC 81 mg oral tablet,delayed release (DR/EC), Take 81 mg by mouth once daily. atenolol 50 mg oral tablet, Take 50 mg by mouth two times daily. docusate sodium (COLACE) 100 mg oral capsule, Take 1 capsule by mouth two times daily. Plea se continue to take this while on narcotic pain medications to help prevent constipation Ple ase hold for loose stools furosemide 20 mg oral tablet, Take 20 mg by mouth once daily. ISOSORBIDE ORAL, Take 60 mg by mouth once daily. nitroglycerin 0.4 mg sublingual tablet, sublingual, Place 0.4 mg under tongue every five mi nutes as needed for chest pain. Place under tongue and allow to dissolve. Administer every 5 minutes, max of 3 doses in 15 minutes. omeprazole 20 mg oral capsule,delayed release(DR/EC), Take 1 capsule by mouth. oxyCODONE, immediate release, 5 mg oral tablet, Take 1 to 2 tablets by mouth every six hour s as needed. potassium chloride SR 10 mEq oral capsule, extended release, Take 10 mEq by mouth once enrique y. ramipril 10 mg oral capsule, Take 10 mg by mouth once daily. Allergies: Allergies Allergen Reactions Cardura [Doxazosin Mesylate] Unknown Pt does not recall Wnjrmjj-Olu-Yuu Reductase Inhibitors Arthralgia Tetracycline Unknown Blisters Tomato Unknown Blisters OBJECTIVE: Vitals: BP 152/72 | Pulse 55 | Temp (Src) 36.5 C (97.7 F) (Oral) | RR 16 | Wt 104.327 kg (230 l b) | BMI 33 kg/(m^2) Physical Exam: General: Alert, well appearing, no distress HEENT: Well healed scalp and R cervical incisions with supriya removed today Lymph Nodes: No cervical or axillary lymphadenopathy Cardiovascular: Regular rate Respiratory: Even, unlabored respirations, no wheezes Extremities: Warm, well perfused Pathology: SOURCE OF SPECIMEN:A Right sentinel periparotid nodes SOURCE OF SPECIMEN:B Winigan nodes right neck level 2 SOURCE OF SPECIMEN:C Wide excision right scalp melanoma SOURCE OF SPECIMEN:D Anterior margin SOURCE OF SPECIMEN:E Posterior margin Final Pathologic Diagnosis: A: Winigan lymph nodes, right anirudh-parotid, biopsy: - Fibroadipose tissue and salivary gland, negative for malignancy (see comment) B: Winigan lymph nodes, right neck level 2, dissection: - Four lymph nodes, negative for malignancy and micrometastasis (0/4) (see comment) - Benign salivary gland C: Skin, right scalp, excision: - Residual melanoma in situ (MIS), spanning approximately 2.3 cm, extending to the anterior-superior specimen margin - Posterior and inferior margins free of MIS - Background skin with solar elastosis and scar - Negative for residual invasive melanoma - AJCC Pathologic Stage: See comment below D: Skin, anterior margin, excision: - Skin with solar elastosis, subcutis, and skeletal muscle, negative for malignancy E: Skin, posterior margin, excision: - Skin with solar elastosis and seborrheic keratosis, subcutis, and skeletal muscle, negative for malignancy Comment: Immunohistochemistry for SOX-10 and S-100 were performed on specimens A and B according to the [facility] sentinel lymph node protocol for melanoma and reveal no metastatic melanoma. Based on the invasive melanoma present only in the prior shave biopsy ([facility] [id number]) and the additional information obtained from this resection specimen and lymph node evaluation, the AJCC Pathologic Stage would be pT1b N0 MX. This information is also reflected in the staging summary below. Case seen by: Jolynn Mireles M.D., Ph.D./Surgical Pathology Resident Radha Ocampo D.O./Pathologist /rdjackie Diagnostic Studies: ASSESSMENT: Stan Douglass is a 84 y.o. male with pT1bN0 0.57mm right scalp melanoma s/p WE and R p eriparotid and level II SLNB on 06/28 who presents for postoperative check. Pathology with re sidual MIS and 0/1 right periparotid and 0/4 right level II lymph nodes. [place] class 1. Dis cussed management of MIS at WE margins, recommended close follow up with dermatology. 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 Stefanie Benites This patient was seen in conjunction with Dr. Nikos Mchugh MD, attending physician, who agre es with the above plan. Trinh Bolden MD PGY-1, Department of Surgery Pager [phone] documented in this enco unter Plan of Treatment Not on filedocumented as of this encounter Procedures + +--------+ + + + | Procedure Name | Priori | Date/Time | Associated Diagnosis | Comments | | | ty | | | | + +--------+ + + + | PATHOLOGY | | 05/21/2015 | | Results for this | | | | 12:00 AM | | procedure are in the | | | | PST | | results section. | + +--------+ + + + documented in this encounter Results PATHOLOGY (05/21/2015 12:00 AM PST) + + + | Narrative | Performed At | + + + | | | + + + documented in this encounter Visit Diagnoses + + | Diagnosis | + + | Melanoma of scalp (HCC) - Primary Malignant melanoma of skin of scalp and neck | + + documented in this encounter
--- OUTSIDE RECORDS SUMMARY | ~2019-10-06 | XMS | Encounter Summary ---
Demographics + + + | Address | [address] | | | [place] [address] | + + + | Home Phone [...] + + + | Author | [facility] | + + + | Organization | [facility] | + + + | Address | Unknown | + + + | Phone | Unavailable | + + + Support + + + + + | Name | Relationship | Address | Phone | + + + + + | Nancy Douglass | ECON | [address] | | | | | [place] | | | | | [address] | | + + + + + Care Team Providers + +------+ + | Care Party Director Name | Role | Phone | + +------+ + | Asael Mendez MD | PCP | | + +------+ + Encounter Details +--------+ + + + + | Date | Type | Department | Care Team | Description | +--------+ + + + + | 05/27/ | Aviation Program Manager | Surgical Oncology | Nikos Mchugh MD | Melanoma (HCC) | | 2016 | | at [facility] [address] | [address] | (Primary Dx) | | | | Ave Center for | [place], [place] | | | | | Health and Healing, | [address] | | | | | [address] | [phone] | | | | | [place], [place] | | | | | | [address] | | | | | | [phone] | | | +--------+ + + + [...] as of this encounter Plan of Treatment + +------+--------+ + + | Name | Type | Priori | Associated Diagnoses | Order Schedule | | | | ty | | | + +------+--------+ + + | PATHOLOGY CONSULT - | Lab | Routin | Melanoma (HCC) | Ordered: 05/28/2015 | | REVIEW OUTSIDE | | e | | | | SLIDES | | | | | + +------+--------+ + + documented as of this encounter Visit Diagnoses + + | Diagnosis | + + | Melanoma (HCC) - Primary Melanoma of skin, site unspecified | + + documented in this encounter"
--- OUTSIDE RECORDS SUMMARY | ~2019-10-06 | XMS | Encounter Summary ---
Demographics + + + | Address | [address] | | | [place] [address] | + + + | Home Phone | | + + + | Preferred Language | Unknown | + + + | Marital Status | | + + + | [employer] Affiliation | NON | + + + | Race | White | + + + | Ethnic Group | Not or | + + + Author + + + | Author | [facility] | + + + | Organization | [facility] | + + + | Address | Unknown | + + + | Phone | Unavailable | + + + Support + + + + + | Name | Relationship | Address | Phone | + + + + + | Nancy Douglass | ECON | [address] | | | | | [place] | | | | | [address] | | + + + + + Care Team Providers + +------+ + | Care Manager [place] Name | Role | Phone | + [...] [id number] | | | | | | [facility] | | | | | | and Healing, | | | | | | Building , | | | | | | Floor [place], [place] | | | | | | [address] | | | | | | [phone] | | | +--------+ + + + [...] | | | | | | Received: [id number] | | | | | | A1 [...] in | | | | | | mitosis/[id number] | | | | | | margins: [...] | | | | | | Returned: [id number] | | | | | | [...] [facility] | Mail[address] | [place] [address] | | | DERMATOPATHOLOGY | [address] | | | + + + + + documented in this encounter Visit Diagnoses Not on filedocumented in this encounter"
--- OUTSIDE RECORDS SUMMARY | ~2019-10-06 | XMS | Clinical Summary ---
Demographics + + + | Address | [address] | | | [place] [address] | + + + | Home Phone | | + + + | Preferred Language | Unknown | + + + | Marital Status | | + + + | Quaker Affiliation | NON | + + + | Race | White | + + + | Ethnic Group | Not or | + + + Author + + + | Author | [facility] | + + + | Organization | [facility] | + + + | Address | Unknown | + + + | Phone | Unavailable | + + + Support + + + + + | Name | Relationship | Address | Phone | + + + + + | Nancy Douglass | DEJA | [address] | | | | | [place] | | | | | [phone] | | + + + + + Care Team Providers + +------+ + | Care Shingle Catcher Name | Role | Phone | + +------+ + | Asael Mendez MD | PCP | | + +------+ + Source Comments JENNIFER is fully live on both [facility] Amb[facility] and [facility] Allergies + + + + + + | Active Allergy | Reactions | Severity | Noted | Comments | | | | | Date | | + + + + + + | Doxazosin Mesylate | Unknown | | 06/02/19 | Pt does not recall | | | | | 16 | | + + + + + + | Ojztpfx-Kpx-Wtm | Arthralgia | | 06/02/19 | | [...] | + + + + + + Medications + + + +---------+------+------+-------+ | Medication | Sig | Dispensed | Refills | Star | End | Statu | | | | | | t | Date | s | | | | | | Date | | | + + + +---------+------+------+-------+ | atenolol 50 mg | Take 50 mg by mouth | | 0 | 02/1 | | Activ | | oral tablet | two times daily. | | | 20 | | e | | | | | | 16 | | | + + + +---------+------+------+-------+ | furosemide 20 mg | Take 20 mg by mouth | | 0 | 01/0 | | Activ | | oral tablet | once daily. | | | 08/30 | | e | | | | | | 16 | | | + + + +---------+------+------+-------+ | potassium chloride | Take 10 mEq by mouth | | 0 | 03/0 | | Activ | | SR 10 mEq oral | once daily. | | | 20 | | e | | capsule, extended | | | | 16 | | | | release | | | | | | | + + + +---------+------+------+-------+ | amLODIPine 5 mg | Take 10 mg by mouth | | 0 | 03/1 | | Activ | | oral tablet | once daily. | | | 5/20 | | e | | | | | | 16 | | | + + + +---------+------+------+-------+ | ramipril 10 mg | Take 10 mg by mouth | | 0 | | | Activ | | oral capsule | once daily. | | | | | e | + + + +---------+------+------+-------+ | ISOSORBIDE ORAL | Take 60 mg by mouth | | 0 | | | Activ | | | once daily. | | | | | e | + + + +---------+------+------+-------+ | aspirin EC 81 mg | Take 81 mg by mouth | | 0 | | | Activ | | oral tablet,delayed | once daily. | | | | | e | | release (DR/EC) | | | | | | | + + + +---------+------+------+-------+ | nitroglycerin 0.4 | Place 0.4 mg under | | 0 | | | Activ | | mg [...] | | | | + + + +---------+------+------+-------+ | omeprazole 20 mg | Take 1 capsule by | | 0 | 03/2 | | Activ | | oral capsule,delayed | mouth. | | | 2/20 | | e | | release(DR/EC) | | | | 16 | | | + + + +---------+------+------+-------+ | oxyCODONE, | Take 1 to 2 tablets | 30 | 0 | 04/0 | | Activ | | immediate release, 5 | by mouth every six | tablet | | 9/20 | | e | | mg oral tablet | hours as needed. | | | 16 | | | + + + +---------+------+------+-------+ | docusate sodium | Take 1 capsule [...] | | | | + + + +---------+------+------+-------+ Active Problems + + + | Problem | Noted Date | + + + | Melanoma of scalp | 06/02/2015 | + + + Family [...] recent travel history available. | + + Last Filed Vital Signs + [...] | | + + + + + Plan of Treatment + + + + + | Health Maintenance | Due Date | Last Done | Comments | + + + + + | Pneumococcal | | | | | vaccination (1 of 2 | 6 | | | | - PCV13) | | | | + + + + + | Influenza (Flu) | | | | | vaccination (#1) | 0 | | | + + + + + Results Not on filefrom Last 3 Months Insurance + +--------+ +--------+ + +--------+ | Payer | Benefi | Subscriber | Effect | Phone | Address | Type | | | t Plan | ID | [place] | | | | | | / | | Dates | | | | | | Group | | | | | | + +--------+ +--------+ + +--------+ | MEDICARE | MEDICA | xxxxxxxxxx | 11/11/18 | [phone] | [address] | [address] | | | RE A & | | 96-Pre | 1 | [phone] | [address] | | | B | | sent | | [place] | | | | | | | | [phone] | | + +--------+ +--------+ + +--------+ | [employer] MEDICARE | MODA | xxxxxxxxx | 03/13/19 | [phone] | [address] | POS | | SUPPLEMENT | MEDICA | | 14-Pre | 4 | [id number] | | | | RE | | sent | | [place], | | | | [place] | | | | [place] [address] | | | | MENT | | | | | | + +--------+ +--------+ + +--------+ + +--------+ +--------+ + + | Guarantor Name | Accoun | Relation to | Date | Phone | Billing Address | | | t Type | Patient | of | | | | | | | | | | + +--------+ +--------+ + + | Stan Douglass | Person | Self [birth year] | [address] | | | al/Fam | | 1931 | [phone] | [place] [phone] | | | janet | | | 9 (Home) | | | | | | | [phone] | | | | | | | 8 (Work) | | + +--------+ +--------+ + + Advance Directives + + + + + | Code Status | Date | Date | Comments | | | Activated | Inactivated | | + + + + + | Full Code | 06/19/2015 | 06/20/2015 | | | | 6:07 PM | 6:21 PM | | + + + + + + + + +---+ | | | | | + + + +---+ | Full Code | 06/19/2015 | 06/19/2015 | | | | 11:50 AM | 6:07 PM | | + + + +---+
--- OUTSIDE RECORDS SUMMARY | ~2019-10-06 | XMS | Encounter Summary ---
Demographics + + + | Address | [address] | | | [place] [address] | + + + | Home Phone | | + + + | Preferred Language | Unknown | + + + | Marital Status | | + + + | Pentecostal Affiliation | NON | + + + | Race | White | + + + | Ethnic Group | Not or | + + + Author + + + | Author | [facility] | + + + | Organization | [facility] | + + + | Address | Unknown | + + + | Phone | Unavailable | + + + Support + + + + + | Name | Relationship | Address | Phone | + + + + + | Nancy Douglass | ECON | [address] | | | | | [place] | | | | | [address] | | + + + + + Care Team Providers + +------+ + | Care Insurance Counselor Name | Role | Phone | + +------+ + | Asael Mendez MD | PCP | | + +------+ + Reason for Referral Diagnostic Testing (Routine) +--------+--------+ + + + + | Status | Reason | Specialty | Diagnoses / | Referred By | Referred To | | | | | Procedures | Contact | Contact | +--------+--------+ + + + + | Closed | | Radiology | Diagnoses | Venakiao, | | | | | | Melanoma of | MD Nikos | | | | | | scalp ([facility]) | [address] | | | | | | Procedures | Ave | | | | | | [place] | [place], [place] | | | | | | LYMPHATICS | [address] | | | | | | MAPPING | Phone: | | | | | | | [phone] | | | | | | | Fax: | | | | | | | [phone] | | +--------+--------+ + + + + Consult to [place] (Routine) +--------+--------+ + + + + | Status | Reason | Specialty | Diagnoses / | Referred By | Referred To | | | | | Procedures | Contact | Contact | +--------+--------+ + + + + | Closed | | Surgical | Diagnoses | Vetto, | Vetto, | | | | Oncology | Melanoma of | MD Nikos | MD Nikos | | | | | scalp (HCC) | [address] | [address] | | | | | Procedures | Ave | Ave | | | | | REQUEST TO | [place] | | | | | SURGERY | [address] | [phone] | | | | | COMPO CONVEYOR OPERATOR | Phone: | Phone: | | | | | DC EX MLG | [phone] | [phone] | | | | | LSN HD/HN/FT | Fax: | Fax: | | | | | > 4.0 CM | [phone] | [phone] | | | | | DC | | | | | | | BX/REMV,LYMP | | | | | | | H NODE,DEEP | | | | | | | CERV DC | | | | | | | BIOPSY/EXCIS | | | | | | | ION, LYMPH | | | | | | | NODE(S) DC | | | | | | | LO MAP OF | | | | | | | SENT LYMPH | | | | | | | NODE | | | +--------+--------+ + + + + Reason for Visit Consultation (Routine) +--------+--------+ + + + + | Status | Reason | Specialty | Diagnoses / | Referred By | Referred To | | | | | Procedures | Contact | Contact | +--------+--------+ + + + + | Closed | | Surgical | Diagnoses | Kamari, | Lolita, | | | | Oncology | Melanoma | Stefanie Amaro MD | MD Nikos | | | | | ([facility]) | [address] | | | | | | [address] | Ave | | | | | | [place], | [place], [place] | | | | | | [place] [address] | [address] | | | | | | Phone: | Phone: | | | | | | [phone] | [phone] | | | | | | Fax: | Fax: | | | | | | [phone] | [phone] | +--------+--------+ + + + + Encounter Details +--------+---------+ + + + | Date | Type | Department | Care Team | Description | +--------+---------+ + + + | 06/01/ | Office | Surgical Oncology | Nikos Mchugh MD | Melanoma of scalp | | 2015 | Visit | at [facility] [address] | [address] | (HCC) (Primary Dx) | | | | [facility] | [place], [place] | | | | | [facility] He[facility], | [address] | | | | | Building [address] | [phone] | | | | | [place], [place] | | | | | | [address] | | | | | | [phone] | | | +--------+---------+ + + + [...] + + + | Blood Pressure | 175/72 | 06/02/2015 2:08 PM | | | | | PDT | | + + + + + | Pulse | 68 | 06/02/2015 2:08 PM | | | | | PDT | | + + + + + | Temperature | 36.9 C (98.5 F) | 06/02/2015 2:08 PM | | | | | PDT | | + + + + + | Respiratory Rate | 18 | 06/02/2015 2:08 PM | | | | | PDT | | + + + + + | Oxygen Saturation | - | - | | + + + + + | Inhaled Oxygen | - | - | | | Concentration | | | | + + + + + | Weight | 105.3 kg (232 lb 1.6 | 06/02/2015 2:08 PM | Pt unable to remove | | | oz) | PDT | shoes | + + + + + | Height | 179.1 cm (5' 10.5") | 06/02/2015 2:08 PM | Pt.unable to remove | | | | PDT | shoes, height taken | | | | | with shoes on | + + + + + | Body Mass Index | 32.83 | 06/02/2015 2:08 PM | | | | | PDT | | + + + + + documented in this encounter Patient Instructions Patient Instructions Halle Malhotra RN - 06/02/2015 2:50 PM PDTOUTPATIENT SURGERY DELIA PARKER at [facility] * REPORT TO THE NUCLEAR MEDICINE DEPARTMENT ( [facility]) for surgery ON 06/19/15. Prior to surgery, you will need to schedule the followin. PMC Appointment (Perioperative Medicine Clinic) is on _06/02/15 at _4:05 pm . The PMC clinic is located on the 4th floor of the [facility] SERVICES Chest Xray (Radiology is located on the 3rd floor of [facility]) No appo intment required. 2. Post op Appointment on 4/19/16 at * Stop blood thinners (Aspirin, Warfarin, Ecotrin etc.) as directed one week prior to surge ry. * Nothing to eat or drink (including water) after midnight on 06/18/15 (the night prior to your surgery). * The office will call you with your check in time on 06/18/15 -between 1:00 and 3:00pm. If you have not received a call by 3:00 pm, please call [phone]. * Please shower with hibiclens and shampoo before being admitted to the hospital. * Do not wear any make up, nail tajik or jewelry for the surgery. * Carefully read all literature given to you regarding your surgery. * REMEMBER: You may NOT drive yourself home after surgery! Please make arrangements to hav e someone take you home after you are released from the Day Surgery Facility. * Free parking is available in the [facility] DIRECTIONS TO [facility] FROM [facility]: 1. [facility]. 2. Turn left out of the elevator and exit to the right- out of the front of the building. 3. Cross the [address] to [facility]. 4. Proceed to elevator "C" and go to the basement. 5. Check in at the Nuclear Medicine desk- to the left as you exit the elevators. Wound care instructions after melanoma excision and sentinel node biopsy: Broxton node incision Your sentinel node incision will usually be about 1 1/2 to 2 inches long. It is generally closed with dissolvable sutures and skin adhesive called dermabond. The de rmabond often leaves a film around the incision and should wear off on it's own (similar to glue when it dries). You may remove any dressings on this incision 1-2 days after your operation and may leave t he incision uncovered. You may get this incision wet in the shower but no hot tubs or baths yet. Melanoma excision incision The melanoma wide excision on your scalp will most likely be closed by Dr. Mooney in plastic s urgery. General Post op information Your urine may be slightly green tinged after surgery. This is from the blue dye used for t he sentinel node biopsy. If you note swelling and can elevate the area affected, this may help decrease it and also help with post op pain. documented in this encounter Progress Notes Halle Malhotra RN - 06/02/2015 3:15 PM PDTPatient/Family Readiness to Learn: The following pertains to: patient and spouse / significant other .. Accurately explains reasons for visit and accurately relates medical history: yes. Accurately describes the likely alteration in self-care routines/abilities resulting from t reatment: yes. Able to provide names and reasons for taking current medications and dosages: yes. Able to follow proposed treatment plan for diet, activity and/or medication without difficu lty: yes. Learning Needs: Wound care, Procedures / treatments and Diagnostic tests / labs. Barriers: None identified. Referral To: No referral required. Preferred Learning Method: Verbal and Written. Teaching: Care instructions reviewed: preop. Patient/Family Response to Teaching: Verbalizes understanding of information/instructions given: Yes. Demonstrates ability to perform required procedure: Yes. Additional Notes: none Puneet Choi MD - 06/02/2015 2:16 PM PDT SURGICAL ONCOLOGY CLINIC NOTE 06/02/2015 Reason for Visit: Melanoma of the R frontal scalp Consulting Provider: Stefanie Benites MD History of Present Illness: Stan Douglass is a 84 y.o. male from [place] who present ed with a suspicious pigmented lesion of the R scalp. He reportedly had this biopsied sever al years ago and was told it was melanoma, although Dr. Benites found the report which reveale d atypical nevi instead. Dr. Benites has been following the lesion for several years and rece ntly it has changed color. She performed shave biopsy which revealed melanoma, at least 0.5 6mm, nonulcerated, MR 1/mm^2. The pathology has not been reviewed here at [facility] by Dr Hancock. The patient now presents for consideration of wide excision and possible surgical staging here at [facility]. History of multiple basal cell carcinomas (both shoulders and scalp) s/p excision. No othe r melanomas. He is a retired [employer]. Worked in the sun a lot, but usually wore hats. No k nown family history of melanoma. Review of Systems: General: No constitutional symptoms of fevers, fatigue, chills, weight loss or sweats. Eyes: No changes in vision, double vision, eye pain, eye irritation, discharge, blurred vi charity or light sensitivity. Ears, Nose and Throat: No hearing loss, ringing in the ears, ear discharge, earache, noseb jose c, nasal congestion, difficulty swallowing, hoarseness or sore throat. Respiratory: No shortness of breath, coughing up blood, excessive sputum, cough, chest dis comfort or wheezing. Musculoskeletal: No joint pain, swelling, stiffness, back pain, arthritis, muscle aches, m uscle cramps or loss of strength. Cardiovascular: No chest pain, skipping beats, lightheadedness, difficulty breathing uprig ht or lying down, fatigue, near fainting or fainting, palpitations, weight gain, edema, leg cramps. Gastrointestinal: No loss of appetite, excessive appetite, indigestion, vomiting, nausea, constipation, gas, abdominal pain, hemorrhoids, diarrhea, bloating, bloody stools or dark ta rry stools. Genitourinary: No urinary frequency, blood in urine, difficulty in urination, discharge, p ainful urination, incontinence, urinary urgency or genital sores. Neurologic: No unusual headaches, inability to speak, poor balance, numbness, tingling, tr emors, memory loss, disturbances in coordination or sensation of room spinning. Skin: No itching, rash, poor wound healing, night sweats, changes in skin color, dryness, flushing or suspicious lesions. Psychological: No abnormal anxiety, depression, thoughts of suicide or hallucinations. Heme/Lymphatic: No skin discoloration, abnormal bleeding or enlarged lymph nodes. Endocrine: No heat intolerance, cold intolerance, excessive hunger or excessive thirst. Allergic: No seasonal allergies, hives or rash, persistent infections or HIV exposure. PMH: CAD/UT s/p stents x3 in . No anticoagulation, takes daily ASA. No DM, CHF PSH: Reviewed, see Epic Allergies Allergen Reactions Tetracycline Unknown Blisters Tomato Unknown Blisters Medications: Reviewed in [facility] Social History: History Social History Marital Status: Spouse Name: N/A Number of Children: N/A Years of Education: N/A Occupational History Not on file. 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 Nodes: No supraclavicular, cervical, axillary, inguinal, femoral, popliteal, or epitrochlea r nodes on either side. Lungs: clear to auscultation Heart tones regular without murmur or gallop Abdomen: Soft, nontender. No organomegaly or masses Skin: Well healed biopsy scar on the R scalp; no new lesions or any early satellite or in-t ransit disease. 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 I explained the rationale for these procedures and the pivotal role of sentinel node in dete rmining the pathologic stage, prognosis, and further treatment recommendations. The patient understands the risks of bleeding, infection, wound healing problems, lymphocele, seroma, ne rve injury/numbness, and the small risks of recurrence and missed sentinel nodes. They jaleel d a consent form in my presence after all their questions were answered. They also signed a consent to have their data entered in to the National [facility] Lymph [employer] data base, of which I am a member. Plan: 1. Check results of metastatic work-up, including CXR and labs. 2. Operation is tentatively scheduled for 06/18. Will perform WLE and SLNB. Plastic surgery t o assist with reconstruction. 3. Consent signed today. All question answered. Will try to obtain PMC appt today. Puneet Raymond MD Resident Physician, PGY-1 [facility] Pager [phone] Nikos Boyd MD - 06/02/2015 2:14 PM PDTFormatting of this note might be different from the orig ina. SURGICAL ONCOLOGY CLINIC NOTE 06/02/2015 Reason for Visit: Melanoma of the scalp Consulting Provider: Stefanie Benites History of Present Illness: Stan Douglass is a 84 y.o. male from [place] who present ed with a suspicious pigmented lesion of the scalp. This occurred at the site of a prior exc ision. Partial biopsy by Dr Benites was read at [facility] as melanoma, at least 0.57mm, in radial growth phase, with no ulceration or LVI but 1 miosis/mm2. [facility] Path review pending. The pat ient now presents for consideration of wide excision and possible surgical staging here at [facility]. Review of Systems: Per resident note Past Medical History Diagnosis Date Arthropathy Coronary atherosclerosis Hearing loss Essential hypertension Past Surgical History Procedure Laterality Date Appendectomy Back surgery Hernia repair Allergies Allergen Reactions Tetracycline Unknown Blisters Tomato Unknown Blisters No outpatient prescriptions have been marked as taking for the 06/02/15 encounter (Office Vi sit) with Nikos Mchugh MD. FamHx noncontributory Social History: History Social History Marital Status: Spouse Name: N/A Number of Children: N/A Years of Education: N/A Occupational History Not on file. Social History Main Topics Smoking status: Not on file Smokeless tobacco: Not on file Alcohol Use: Not on file Drug Use: Not on file Sexual Activity: Not on file Other Topics Concern Not on file Social History Narrative No narrative on file Physical examination: Older w male no acute distress BP 175/72 | Pulse 68 | Temp (Src) 36.9 C (98.5 F) (Oral) | RR 18 | Ht 1.791 m (5' 10.5" ) | Wt 105.28 kg (232 lb 1.6 oz) | BMI 32.82 kg/(m^2) Sclera: anicteric Neck: supple. Nodes: No supraclavicular, cervical, axillary, inguinal, femoral, popliteal, or epitrochlea r nodes on either side. Lungs: clear to auscultation Heart tones regular without murmur or gallop Abdomen: present old scars. No organomegaly or masses Skin: Extensive solar changes on scalp. Well healed biopsy scar on the R parietal scalp abo ve and in front of the ear. Post to the scar is a pigmented patch that needs to be included in the resection. We took a photo and placed it in the resident's note. No new lesions or a ny early satellite or in-transit disease. Extremities: No edema Path: per HPI Imaging: CXR pending Laboratory data:LDH pending Assessment: Barring any problems on the metastatic workup, this patient has at least clinic al stage T1bN0, IB melanoma of the scalp, and is a good candidate for wide excision. I would also do surgical staging because the lesion is transected and there may be gross residual ( see photo) . I explained the rationale for these procedures and the pivotal role of sentine l node in determining the pathologic stage, prognosis, and further treatment recommendations . The patient understands the risks of bleeding, infection, wound healing problems, lymphoce le, seroma, nerve injury/numbness, and the small risks of recurrence and missed sentinel nod es. They signed a consent form in my presence after all their questions were answered. They also signed a consent to have their data entered in to the National [facility] Lymph Node Work ing [employer] data base, of which I am a member. Plan: 1.Check results of metastatic work-up. 2. Send [place] test 3. Operation is tentatively scheduled for the near future. Will coordinate with Plastics. The pt is from somewhat far away but he does not to go to [facility] clinic and we will try to get that today. Stop ASA 1 week pre-op I performed a history and physical examination of the patient and discussed his management with the resident. I reviewed the resident s note and agree with the documented findings and plan of care. Nikos Mchugh MD SURGICAL ONCOLOGY AT [facility] [id number] [place], [place] [address] documented in this encoun ter Plan of Treatment Not on filedocumented as of this encounter Procedures + +--------+ + + + | Procedure Name | Priori | Date/Time | Associated Diagnosis | Comments | | | ty | | | | + +--------+ + + + | OUTSIDE CARDIOLOGY | | 06/19/2015 | | Results for this | | | | 12:00 AM | | procedure are in the | | | | PDT | | results section. | + +--------+ + + + | OUTSIDE CARDIOLOGY | | 06/19/2015 | | Results for this | | | | 12:00 AM | | procedure are in the | | | | PDT | | results section. | + +--------+ + + + | OUTSIDE CARDIOLOGY | | 06/02/2015 | | Results for this | | | | 12:00 AM | | procedure are in the | | | | PDT | | results section. | + +--------+ + + + documented in this encounter Results [place] [facility] MAPPING (06/19/2015 11:30 AM PDT) + + + + + + | Component | Value | Ref Range | Performed | Pathologist | | | | | At | Signature | + + + + + + | [place] | PROCEDURE: MELANOMA | | | | | LYMPHATCS | SENTINEL NODE | | | | | DRAINAGE | LOCALIZATION 06/19/15 | | | | | MAPING | 11:30:00 HISTORY: | | | | | | Melanoma scalp | | | | | | COMPARISON: None | | | | | | TECHNIQUE: Location of | | | | | | lesion was confirmed. | | | | | | The skin over the scalp | | | | | | wascleaned in the | | | | | | standard manner with | | | | | | chlorhexidine. 0.2 | | | | | | cc's containing onehalf | | | | | | mCi Tc 99m filtered | | | | | | sulfur colloid was | | | | | | divided among four | | | | | | intradermalinjections | | | | | | surrounding the lesion. | | | | | | Within 20 minutes, two | | | | | | lymph nodes | | | | | | wereidentified in the | | | | | | region of the right ear. | | | | | | Potter are made at 0 | | | | | | and 45 degreeswith an | | | | | | indelible marker for | | | | | | each node. FINDINGS: Two | | | | | | lymph nodes identified | | | | | | and marked. IMPRESSION: | | | | | | Two lymph nodes | | | | | | identified and marked. | | | | | | Results were relayed to | | | | | | Dr. Mchugh viatelephone | | | | | | conversation immediately | | | | | | following completion of | | | | | | the study. Attending | | | | | | Radiologists: ROXANA | | | | | | TI GARCIAuthor: | | | | | | ROXANA GARCIA MD I | | | | | [...] Final/Electronically | | | | | | signed / ROXANA | | | | | | JOSE 06/19/2015 11:41 | | | | | | AM | | | | + + + + + + + + | Specimen | + + | | + + + +---------+ + + | Performing | Address | City/State/Zipcode | Phone Number | | Organization | | | | + +---------+ + + | [facility] DEPARTMENT OF | | | | | RADIOLOGY | | | | + +---------+ + + OUTSIDE CARDIOLOGY (06/19/2015 12:00 AM PDT) + + + | Narrative | Performed At | + + + | | | + + + OUTSIDE CARDIOLOGY (06/19/2015 12:00 AM PDT) + + + | Narrative | Performed At | + + + | | | + + + 12 LEAD ECG (06/02/2015 4:12 PM PDT) [...] + + + + + + | [facility] | [address] | ms | [facility] DE[facility] [...] | + + + + + | [facility] | [address] | [place], [place] | | | CARDIOLOGY | [address] | [address] | | + + + + + [...] | + + + + + | [facility] | [address] | [place] [address] | | | SERVICES, CORE | [address] [...] | + + + + + | [facility] | [address] | [place] [address] | | | SERVICES, CORE | [address] | | | + + + + + X-RAY CHEST 2 VIEW (06/02/2015 3:18 PM [...] | | | | | | SAMUEL CHILDERS, MDAuthor: | | | | | | [...] Final/Electronically | | | | | | signed / SAMUEL | | | | | [...] | | + +---------+ + + | [place] DEPARTMENT OF | | | | | RADIOLOGY | | | | + +---------+ + + OUTSIDE CARDIOLOGY (06/02/2015 12:00 AM PDT) + + + | Narrative | Performed At | + + + | | | + + + documented in this encounter Visit Diagnoses + + | Diagnosis | + + | Melanoma of scalp (HCC) - Primary Malignant melanoma of skin of scalp and neck | + + documented in this encounter
--- OUTSIDE RECORDS SUMMARY | ~2019-10-06 | XMS | Encounter Summary ---
Demographics + + + | Address | [address] | | | [place] [address] | + + + | Home Phone | | + + + | Preferred Language | Unknown | + + + | Marital Status | | + + + | Adventist Affiliation | NON | + + + | Race | White | + + + | Ethnic Group | Not or | + + + Author + + + | Author | [facility] | + + + | Organization | [facility] | + + + | [...] [place] | | | | | [address] | | + + + + + Care Team Providers + +------+ + | Care Vegetable Harvest Machine Operator Name | Role | Phone | [...] | MELANOMA RIGHT | | | | [facility] | [place], [place] | SCALP, SENTINEL NODE | | | | Ambulatory Surgery | [address] | BIOPSY Path | | | | Admitting Desk | [phone] | specimen x 5 sent | | | | Located on the 4th | | | | | | floor, Room [facility] | | | | | | [place], [place] | | | | | | [address] | | | +--------+---------+ + + + [...] Admission Date: 06/19/2015 Discharge Date: 06/20/2015 Service: [facility] Surgery Team Summary: 84 yo m w/ hx of with a suspicious pigmented lesion of the scalp. This occurred at the site of a prior excision. Partial biopsy by Dr Benites was read at [facility] as melanoma, at least 0. 57mm, in radial growth phase, with no ulceration or LVI but 1 miosis/mm2, he is T1bN0, stage Ib. He was taken to the operating room on 06/19/2015 and underwent Excision of scalp melanoma with sentinel lymph node biopsy with adjacent tissue transfer repair of right scalp defect (total undermined area of [id number]). He tolerated the procedure well but due [...] risk of constipation will need to take obbm-agn-dqdtgvd medications to manag e this side effect. [...] Discharging Attending: MD Natalia Alatorre MD Resident, [facility], Dept. of Surgery Pager [phone] documented in this encoun ter Discharge Instructions [...] please call the Facial Plastics Clinic, at [phone] with any ques tions or concerns. Otherwise, you may call the Otolaryngology resident at [phone] for c oncerns, such as difficulty breathing [...] through Care Everywhere.MELANOMA (ENGLI SH)SURGERY: GENERIC: POST-OP (SCOTTISH)documented in this encounter Medications at Time of [...] plan of care. POD#1. Mirna dressing dry, executive vice president and chief financial officer intact. Home today, F/u on 06/29. Nikos Mchugh MD [facility] 13K MailCode [id number] [place], [place] [address] electronically signed by Nikos Mchugh [...] Salo Elmore MD R-1, Department of Surgery Formerly [facility] [place] Pager #[phone] Natalia Mueller MD - 6:02 PM PDTContinues [...] The patient was positioned appropriately. The following sales team manager s were present during the team pause: [...] 06/19/2015 Attending | | Surgeon:Nikos Mchugh MD Substance Addiction Coordinator(s):Natalia Treviño MD, | | resident in Surgery. Preoperative Diagnosis: Melanoma of the right | | parietal scalp.Postoperative Diagnosis: Melanoma of the right parietal scalp.Procedure: | | 1.Preoperative injection Lymphazurin blue dye, right parietal scalp melanoma | | site.2.Wide excision right parietal scalp melanoma 3.5 x 3.5 cm, full thickness down to | | but not including pericranium.3.[place] lymph node biopsy, right periparotid region, | | deep.4.[place] lymph node biopsy, right neck level 2, deep.Specimens: 1.Wide excision | | melanoma, right parietal scalp, 3.5 x 3.5 cm, full thickness down to but not including | | pericranium, oriented for Pathology.2.[place] lymph nodes, sent as a single specimen on | | Telfa, from the right periparotid region.3.[place] lymph nodes, from the right neck | [...] 06/19/2015 15:04:28DT: 06/19/2015 | | 16:18:08Job #: [id number] | | | | | |Nikos Mchugh MD | |JV/MODL | | | | | | /[id number] | + + PROCEDURE NOTE (06/20/2015 10:45 [...] (total undermined area of | | | [id number]) Anesthesia: General Endotracheal Specimens: | | | [...] | | undermined to a total of [id number] in a subgaleal plane. Deep wound | [...] Luc Rhodes | | | MD Jesica Scoop Operator Facial Plastic and Reconstructive | | | Surgery Department of Otolaryngology/ Head and Neck Surgery Tel:[phone] | | | [phone] [email or web address] | | + + + CAPILLARY BLOOD GLUCOSE (NO CHG), POC (06/19/2015 3:24 PM PDT) + +---------+ + + + | Component | Value | Ref Range | Performed | Pathologist | | | | | At | Signature | + +---------+ + + + | BLOOD | 118 (H) | 60 - 99 mg/dL | [facility] - | | | GLUCOSE, | | [...] - JEN | [address] | [place], [place] | | | [facility] | [address] | [address] | | | TESTS | | | [...] OF | | | | OF SPECIMEN:B [place] | | PATHOLOGY | | | | [...] Diagnosis:A: | | | | | | [place] lymph nodes, | | | | | | right anirudh-parotid, | | | | | | biopsy:- Fibroadipose | | | | | | tissue and salivary | | | | | | gland, negative for | | | | | | malignancy (seecomment) | | | | | | B: [place] | | | | | | lymph [...] | | | | cs determined by [facility] | | | | | | laboratories. [...] 1/ | | | | | | pf26jmAkzcxvlugbzakzymo: | | | | | | Not [...] | | | | | | (pT): [id number] Lymph | | | | | | Nodes (pN): | | | | | | [id number] Nodes | | | | | | [...] B: | | | | | | [place] nodes right | | | | | [...] nodes:A1B: | | | | | | [place] nodes right | | | | | [...] | + + + + + | [facility] | [address] | [place] [address] | | | PATHOLOGY | [address] [...]
--- OUTSIDE RECORDS SUMMARY | ~2019-10-06 | XMS | Encounter Summary ---
Demographics + + + | Address | [address] | | | [place] [address] | + + + | Home Phone | | + + + | Preferred Language | Unknown | + + + | Marital Status | | + + + | Gnosticism Affiliation | NON | + + + | Race | White | + + + | Ethnic Group | Not or | + + + Author + + + | Author | [facility] | + + + | Organization | [facility] | + + + | Address | Unknown | + + + | Phone | Unavailable | + + + Support + + + + + | Name | Relationship | Address | Phone | + + + + + | Nancy Douglass | ECON | [address] | | | | | [place] | | | | | [address] | | + + + + + Care Team Providers + +------+ + | Care Corporate Administrative Assistant Name | Role | Phone | + [...] | | | | | neck | [place], [place] | [place], [place] | | | | | Procedures | [address] | [address] | | | | | MI ADJ TISS | | | | | | | XFER | | | | | | | SCALP,EXTREM | | | | | | | 10.1-30 MI | | | | | | | SKIN TISSUE | | | | | | | | | | | | | | REARRANGEMEN | | | | | | | T MI SKIN | | | | | | | TISSUE | | | | | | | REARRANGEMEN | | | | | | | T ADD-ON MI | | | | | | | FULL THICK | | | | | | | GRFT | | | | | | | SCALP,ARM,LE | | | | | | | G <20SQC MI | | | | | | | FULL THICK | | | | | | | GRFT | | | | | | | SCALP,ARM | | | | | | | ADD 20SQCM | | | | | | | MI SPLIT | | | | | | | GRFT,HEAD,FA | | | | | | | C,HAND,FEET | | | | | | | <100CM MI | | | | | | | [...] Visit | Facial Plastics & | | ([facility]) (Primary Dx) | | | | Reconstructive | | | | | | Services at [facility] | | | | | | [address] | | | | | | [facility] | | | | | | and Healing, | | | | | | [address] | | | | | | [place], [place] | | | | | | [address] | | | | | | [phone] | | | +--------+---------+ + + + [...] recorded by Wong Cagle. Luc Mooney MD Beater Operator Facial Plastic and Reconstructive Surgery Department of Otolaryngology/ Head and Neck Surgery [email or web address] Cagle - 2:10 PM PDTClinic: Facial [...] comes from a far distance. Signed: Wong Cagle (scribe for Dr. Mooney) Luc Mooney MD Beater Operator Facial Plastic and Reconstructive Surgery Department of Otolaryngology/ Head and Neck Surgery [email or web address] documented in this encou nter Plan of Treatment Not on filedocumented as of this encounter Visit Diagnoses + + | Diagnosis | + + | Melanoma of scalp (HCC) - Primary Malignant melanoma of skin of scalp and neck | + + documented in this encounter"
--- OUTSIDE RECORDS SUMMARY | ~2019-10-06 | XMS | Encounter Summary ---
Demographics + + + | Address | [address] | | | [place] [address] | + + + | Home Phone | | + + + | Preferred Language | Unknown | + + + | Marital Status | | + + + | Cheondoism Affiliation | NON | + + + | Race | White | + + + | Ethnic Group | Not or | + + + Author + + + | Author | [facility] | + + + | Organization | [facility] | + + + | [...] [place] | | | | | [address] | | + + + + + Care Team Providers + +------+ + | Care Hemming And Tacking Machine Operator Name | Role | Phone [...] | | | | | | scalp ([facility]) | [address] | | | | | | Procedures | Ave | | | | | | [place] | [place], [place] | | | | | | LYMPHATICS | [address] | | | | | | MAPPING | Phone: | | | | | | | [phone] | | | | | | | Fax: | | | | | | | [phone] | | +--------+--------+ + + + + [...] | | | | REQUEST TO | [place], [place] | [place], [place] | | | | | SURGERY | [address] | [address] | | | | | FACING GRINDER | Phone: | Phone: | | | | | NC EX MLG | [phone] | [phone] | | | | | LSN HD/HN/FT | Fax: | Fax: | | | | | > 4.0 CM | [phone] | [phone] | | | | | NC | | | | | | | BX/REMV,LYMP | | | | | | | H NODE,DEEP | | | | | | | CERV NC | | | | | | | BIOPSY/EXCIS | | | | | | | ION, LYMPH | | | | | | | NODE(S) NC | | | | | | | [...] MD Nikos | | | | | ([facility]) | [address] | [address] | | | | | | [address] | Ave | | | | | | [place], | [place], [place] | | | | | | [place] [address] | [address] | | | | | | Phone: | Phone: | | | | | | [phone] | [phone] | | | | | | Fax: | Fax: | | | | | | [phone] | [phone] | +--------+--------+ + + + + Encounter [...] | | | Ave [facility] for | [place], [place] | | | | | Health and Healing, | [address] | | | | | Building [address] | [phone] | | | | | [place], [place] | | | | | | [address] | | | | | | [phone] | | | +--------+---------+ + + + [...] 2:50 PM PDTOUTPATIENT SURGERY DELIA PARKER at [facility] * REPORT TO THE NUCLEAR MEDICINE DEPARTMENT ( [facility]) for surgery ON 06/19/15. Prior to surgery, you will need to schedule the followin. PMC Appointment (Perioperative Medicine Clinic) is on _06/02/15 at _4:05 pm . The PMC clinic is located on the 4th floor of the [facility] SERVICES Chest Xray (Radiology is located on the 3rd floor of [facility]) No appo intment required. 2. Post op [...] a call by 3:00 pm, please call [phone]. * Please shower with hibiclens and shampoo before being admitted to the hospital. * Do not wear any make up, nail persian or jewelry for the surgery. * Carefully read all literature given to you regarding your surgery. * REMEMBER: You may NOT drive yourself home after surgery! Please make arrangements to hav e someone take you home after you are released from the Day Surgery Facility. * Free parking is available in the [facility] DIRECTIONS TO [facility]: 1. Take [facility] the [facility]. 2. Turn left out of the elevator and exit to the right- out of the front of the building. 3. Cross the [address] to [facility]. 4. Proceed to elevator "C" and go to the basement. 5. Check in at the Nuclear Medicine desk- to the left as you exit the elevators. Wound care instructions after melanoma excision and sentinel node biopsy: [place] node incision Your sentinel node incision will [...] Douglass is a 84 y.o. male from [place] who present ed with a suspicious pigmented [...] pathology has not been reviewed here at [facility] by Dr Hancock. The patient now presents for consideration of wide excision and possible surgical staging here at [facility]. History of multiple basal cell carcinomas (both [...] rash, persistent infections or HIV exposure. PMH: CAD/MT s/p stents x3 in . No anticoagulation, takes daily ASA. 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 Plan: 1. Check results of metastatic work-up, including CXR and labs. 2. Operation is tentatively scheduled for 06/18. Will perform WLE and SLNB. Plastic surgery t o assist with reconstruction. 3. Consent signed today. All question answered. Will try to obtain PMC appt today. Puneet Raymond MD Resident Physician, PGY-1 [facility] Pager [phone] Nikos Boyd MD - 06/02/2015 2:14 PM PDTFormatting of this note might be different from the orig ina. SURGICAL ONCOLOGY CLINIC NOTE 06/02/2015 Reason for Visit: Melanoma of the scalp Consulting Provider: Stefanie Benites History of Present Illness: Stan Douglass is a 84 y.o. male from [place] who present ed with a suspicious pigmented lesion of the scalp. This occurred at the site of a prior exc ision. Partial biopsy by Dr Benites was read at [facility] as melanoma, at least 0.57mm, in radial growth phase, with no ulceration or LVI but 1 miosis/mm2. [facility] Path review pending. The pat ient now presents for consideration of wide excision and possible surgical staging here at [facility]. Review of Systems: Per resident note Past [...] their data entered in to the National [place] Lymph Node Work ing Group data base, of which I am a member. Plan: 1.Check results of metastatic work-up. 2. Send [place] test 3. Operation is tentatively scheduled for the near future. Will coordinate with Plastics. The pt is from [place] far away but he does not to go to [facility] clinic and we will try to get that today. Stop ASA 1 week pre-op I performed a history and physical examination of the patient and discussed his management with the resident. I reviewed the resident s note and agree with the documented findings and plan of care. Nikos Mchugh MD SURGICAL ONCOLOGY AT [facility] MailCode [id number] [phone] [place], [place] [address] documented in this encoun ter [...] | | + +---------+ + + | [facility] DEPARTMENT OF | | | | | [...] + + | [facility] OF | [address] | [place], [place] | | | CARDIOLOGY | [address] | [address] | | + + + + + [...] | + + + + + | [facility] | [address] | [place] [address] | | | SERVICES, CORE | [address] [...] | + + + + + | [facility] | [address] | [place] [address] | | | SERVICES, CORE | DAX [...]
--- OUTSIDE RECORDS SUMMARY | ~2019-10-06 | XMS | Clinical Summary ---
Demographics + + + | Address | [address] | | | [place] [address] | + + + | Home Phone | | + + + | Preferred Language | Unknown | + + + | Marital Status | | + + + | Congregation Affiliation | 1069 | + + + | Race | Unknown | + + + | Ethnic Group | Unknown | + + + Author + + + | Author | [facility] | | | and [place] | + + + | Organization | [facility] | | | and [place] | + + + | Address | Unknown | + + + | Phone | Unavailable | + + + Support + + + + + | Name | Relationship | Address | Phone | + + + + + | Mikki Douglass | ECON | [address] [place] | | | | | [address] | | + + + + + | Jameel Douglass | ECON | Unknown | | + + + + + Care Team Providers + +------+ + | Care Oil Well Engineer Name | Role | Phone | + +------+ + | Rosanne White | PCP | | | PA | | | + +------+ + Allergies + [...] | + + + +---------+------+------+-------+ | atenolol | Take 50 mg by mouth | | 0 | 10/2 | | Activ | | (TENORMIN) 50 mg | daily. | | | 7/20 | | e | | tablet | | | | 17 | | | + + + +---------+------+------+-------+ | isosorbide | Take 30 mg by mouth | | 0 | 01/0 | | Activ | | mononitrate (IMDUR) | daily. | | | 9/20 | | e | | 30 mg ER tablet | | | | 18 | | | + + + +---------+------+------+-------+ | ELIQUIS 5 MG | Take 5 mg by mouth 2 | | 0 | 05/2 | | Activ | | tablet | (two) times daily. | | | 3/20 | | e | | | | | | 18 | | | + + + +---------+------+------+-------+ | ramipril (ALTACE) | Take 10 mg by mouth | | 0 | 09/1 | | Activ | | 10 MG capsule | daily. | | | 4/20 | | e | | | | | | 16 | | | + + + +---------+------+------+-------+ | furosemide (LASIX) | Take 20 mg by mouth | | 0 | 09/1 | | Activ | | 20 mg tablet | daily. | | | 4/20 | | e | | | | | | 16 | | | + + + +---------+------+------+-------+ | amLODIPine | Take 10 mg by mouth | | 0 | 09/1 | | Activ | | (NORVASC) 5 mg | daily. Takes 2 pills | | | 4/20 | | e | | tablet | daily | | | 16 | | | + + + +---------+------+------+-------+ | potassium chloride | Take 10 mEq by mouth | | 0 | 09/1 | | Activ | | (KLOR-CON) 10 MEQ | daily. | | | 4/20 | | e | | ER tablet | | | | 16 | | | + + + +---------+------+------+-------+ | omeprazole | Take 20 mg by mouth | | 0 | 09/1 | | Activ | | (PRILOSEC) 20 mg | every morning before | | | 4/20 | | e | | capsule | breakfast. | | | 16 | | | + + + +---------+------+------+-------+ | | Take 1 tablet by | | 0 | 09/1 | | Activ | | HYDROcodone-acetamin | mouth every 6 (six) | | | 4/20 | | e | | ophen (NORCO) 5-325 | hours as needed for | | | 16 | | | | mg per tablet | Pain. Only as needed | | | | | | + + + +---------+------+------+-------+ Active Problems + + + | Problem | Noted Date | + + + | Pulmonary embolism | 03/30/2017 | + + + + + | Overview: on Eliquis | + + + + + | Coronary artery disease involving [place] coronary artery with | 11/25/2015 | | unstable angina pectoris | | + + + | Bradycardia, [...] +---+ | Stage III chronic kidney disease | | + +---+ | Hyperlipidemia | | + +---+ + + | Overview: Intolerant of statins, Zetia | + + + +---+ | Secondary pulmonary arterial hypertension | | + +---+ + + | Overview: Moderate, 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) | + + Family History + + +------+ [...] + + | Daughter | | | | + +------+ + + | Father | | | prostate CA | | | | (Age | | | | | 91) | | + +------+ + + | Father | | | | + +------+ + + | Mother | | | renal failure | | | | (Age | | | | | 93) | | + +------+ + + | Mother | | | | + +------+ + + | Sister | | Alive | | + +------+ + + | Son | | Alive | | + +------+ + + Social History + +-------+ +--------+------+ | Tobacco Use | Types | Packs/Day | Years | Date | | | | | Used | | + +-------+ +--------+------+ | Former Smoker | | 2 | | | + +-------+ +--------+------+ + [...] | Blood Pressure | 134/72 | 02/06/2018 9:57 AM | | | | | PST | | + + + + + | Pulse | 62 | 02/06/2018 9:57 AM | | | | | PST | | + + + + + | Temperature | 36.7 C (98 F) | 11/26/2015 12:06 PM | | | | | PDT | | + + + + + | Respiratory Rate | 18 | 02/06/2018 9:57 AM | | | | | PST | | + + + + + | Oxygen Saturation | - | - | | + + + + + | Inhaled Oxygen | - | - | | | Concentration | | | | + + + + + | Weight | 101.7 kg (224 lb 4.8 | 02/06/2018 9:57 AM | | | | oz) | PST | | + + + + + | Height | 182.9 cm (6') | 02/06/2018 9:57 AM | | | | | PST | | + + + + + | Body Mass Index | 30.42 | 02/06/2018 9:57 AM | | | | | PST | | + + + + + Plan of Treatment + + + + + | Health Maintenance | Due Date | Last | Comments | | | | Done | | + + + + + | Medication | | | | | Management | 1 | | | + + [...] | | | | | Pneumococcal 65+ (1 | 6 | | | | of 1 - PPSV23) | | | | + + + + + | Med Mgmt: Cr | | 11/26/19 | | | | 7 | 16 | | + + + + + | Med Mgmt: HCT | | 11/26/19 | | | | 7 | 16 | | + + + + + | Med Mgmt: HGB | | 11/26/19 | | | | 7 | 16 | | + + + + + | Med Mgmt: K | | 11/26/19 | | | | 7 | 16 | | + + + + + | Med Mgmt: Na | | 11/26/19 | | | | 7 | 16 | | + + + + + | Adult Annual | | | | | Wellness Visit | 9 | | | + + + + + | Vaccine: Influenza | | | | | (#1) | 0 | | | + + + + + Results Not on filefrom Last 3 Months
--- OUTSIDE RECORDS SUMMARY | ~2019-10-06 | XMS | Encounter Summary ---
Demographics + + + | Address | [address] | | | [place] [address] | + + + | Home Phone | | + + + | Preferred Language | Unknown | + + + | Marital Status | | + + + | Buddhism Affiliation | [id number] | + + + | Race | Unknown | + + + | Ethnic Group | Unknown | + + + Author + + + | Author | [facility] | | | and [place] | + + + | Organization | [facility] | | | and [place] | + + + | Address | Unknown | + + + | Phone | Unavailable | + + + Support + + + + + | Name | Relationship | Address | Phone | + + + + + | Mikki Douglass | ECON | [address], [place] | | | | | [address] | | + + + + + | Jameel Douglass | ECON | Unknown | | + + + + + Care Team Providers + +------+ + | Care Program Proposals Coordinator Name | Role | Phone | + +------+ + PCP | Unavailable | + +------+ + Encounter Details +--------+ + + + + | Date | Type | Department | Care Team | Description | +--------+ + + + + | 11/24/ | Hospital | [facility] | Jed Gradner, | Type 2 DM with CKD | | 2016 - | Encounter | MEDICAL [facility]ENTER | MD [address] | stage 3 and | | | | CLINICAL DECISION | [place] [address] | hypertension (HCC); | | 11/25/ | | [address] | [phone] | Bradycardia, sinus; | | 2015 | | [place], [place] | | Syncope and collapse | | | | [address] | | | | | | [phone] | | | +--------+ + + + [...] + + + | Blood Pressure | 168/75 | 11/26/2015 12:06 PM | | | | | PDT | | + + + + + | Pulse | 53 | 11/26/2015 12:06 PM | | | | | PDT | | + + + + + | Temperature | 36.7 C (98 F) | 11/26/2015 12:06 PM | | | | | PDT | | + + + + + | Respiratory Rate | 16 | 11/26/2015 12:06 PM | | | | | PDT | | + + + + + | Oxygen Saturation | - | - | | + + + + + | Inhaled Oxygen | - | - | | | Concentration | | | | + + + + + | Weight | 101.6 kg (224 lb) | 11/26/2015 12:06 PM | | | | | PDT | | + + + + + | Height | 182.9 cm (6') | 11/26/2015 12:06 PM | | | | | PDT | | + + + + + | Body Mass Index | 30.38 | 11/26/2015 12:06 PM | | | | | PDT | | + + + + + documented in this encounter Discharge Summaries Ren Ram MD - 11/26/2015 1:26 PM PDTFormatting of this note might be diff erent from the original. 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 * Procedures Performed: Chief Complaint: No chief complaint on file. Hospital Course: Stan Douglass is a 84 y.o. male past medical history of a artery disease status post s tent placement in the LAD and RCA and also mid LAD was last seen by Dr. Biswas in 2003, hyper tension on atenolol, amlodipine Ramipril and Lasix who was admitted on 11/25/2015 from [facility] for syncope, and chest discomfort as well as bradycardia. Patient was observed, atenolol was held, serial cardiac enzymes were negative the patient s ubsequently had a stress test which was low risk, after 24 hours of having the atenolol his heart rate was in the mid 50s, on reviewing his rhythm strips during visits here at this [facility] previously the patient did have sinus bradycardia in the mid 50s at that time. His HbA 1c was also noted to be elevated at 7.2, the patient stated that the he knew that he was maciel betic from talking with his PCP and elected to start other medicines medication after seeing his PCP, subsequently we discontinued atenolol started the patient on hydralazine and disch arge the patient home. Discharge Exam and Data: Vital Signs: BP 168/75 mmHg | Pulse 53 | Temp(Src) 98 F (36.7 C) (Oral) | Resp 16 | Ht 1.829 m (6') | Wt 101.606 kg (224 lb) | BMI 30.37 kg/m2 | SpO2 95% General Appearance: Alert, cooperative, no distress, appears stated age Head: Normocephalic, without obvious abnormality, atraumatic Eyes: PERRL, conjunctiva/corneas clear, EOM's intact, Ears: Normal external ear canals, both ears Nose: Nares normal, septum midline, mucosa normal, no drainage or sinus tenderness Throat: Lips, mucosa, and tongue normal; teeth and gums normal Neck: Supple, symmetrical, trachea midline, no adenopathy; thyroid: No enlargement/tenderness/nodules; no carotid bruit or JVD Back: Symmetric, no curvature, ROM normal, no CVA tenderness Lungs: Clear to auscultation bilaterally, respirations unlabored Chest wall: No tenderness or deformity Heart: Bradycardic with a Regular rhythm, S1 and S2 normal, no murmur, rub or gallop Abdomen: Soft, non-tender, bowel sounds active all four quadrants, no masses, no organomegaly Extremities: Extremities normal, atraumatic, no cyanosis or edema Pulses: 2+ and symmetric all extremities Skin: Skin color, texture, turgor normal, no rashes or lesions Lymph nodes: Cervical, supraclavicular, and axillary nodes normal Neurologic: CNII-XII intact. Normal strength, sensation and reflexes throughout Recent Labs Recent Labs Lab 11/26/15 0455 WBC 5.18 HGB 15.0 HCT 46.1 PLT 212 Recent Labs Lab 11/26/15 0455 NA 138 K 4.3 CL 104 CO2 28 BUN 24 CREATININE 1.5* No results for input(s): INR in the last 168 hours. Recent Radiology Results Nm Myocardial Perfusion Spect (stress And Rest) 11/26/2015 1. Prominent thinning of the inferior wall, slightly greater on stress supine images. This is probably due to patient body habitus/diaphragmatic artifact. I cannot exclud e infarct. No defined ischemia. 2. LVEF 62% stress, 60% rest. 3. Preserved LV wall motion. Using the risk stratification system at our institution, this examination equates to at l east a low risk based on this imaging, arising from the criteria below (1). Note that this s hould be interfaced with clinical and other data, potentially affecting final categorization . 1. [place] [employer] and [place] [employer] Scientific Statement. C irculation (2008); 118: p 1516-6272 Selection Text Definition Low Risk 1.Normal or smal l myocardial perfusion defect at rest or with stress.* 2. No change of resting wall motion abnormalities during stress* . * Although the published data are limited, patients with th lilia findings will probably not be at low risk in the presence of either a high-risk treadmil l score or severe resting left ventricular dysfunction (LVEF <35%). Low risk equates with a less than 1% annual mortality rate. Intermediate Risk 1. Mild/moderate resting left vent ricular dysfunction (LVEF=35% to 49%). 2. Stress-induced moderate perfusion defect without LV dilation or increased lung intake Intermediate risk equates with a 1%-3% annual mortali ty rate. High Risk 1. Severe resting left ventricular dysfunction (exercise LVEF <35%) 2 . Severe exercise left ventricular dysfunction (exercise LVEF <35%) 3. Stress-induced lar ge perfusion defect (particularly if anterior) 4. Stress-induced multiple perfusion defect s of moderate size 5. Large, fixed perfusion defect with LV dilation 6. Stress-induced mo derate perfusion defect with LV dilation High risk equates with a greater than 3% annual mo rtality rate. Echo Cardiac Adult With Contrast 11/25/2015 1. This was a technically difficult study with suboptimal views. 2. Overall lef t ventricular systolic function is normal with, an EF between 60 - 65 %. 3. There is moderat e pulmonary hypertension. 4. Poor visualization. Definity was used to opacify the left ventr icular chamber and improve delineation of the endocardial border. Outstanding Issues: For the patient's sinus bradycardia most likely caused by atenolol as well as his chest jose juan n and syncopal episode the patient's atenolol has been stopped, I started hydralazine 25 mg tid, the patient check his blood pressure and record and bring with him to his next appointm ent with For his diabetes mellitus which he knows he has been given informational material about sta rting on cardiac diabetic diet. As he has previous discussed with his PCP taken start him on medication for that on his appointment with him. For his coronary artery disease status post stenting and no visit to cardiology just for last 12 years, I gave the patient both Dr. Harrington and Dr. Santana's numbers so he can ma ke an appointment either at the clinic near [place] or the [place] cardiology clinic in [facility]. For the rest of the patient's chronic medications for his other chronic illnesses significa nt continue the same doses and frequencies. Discharge Information: Follow up: Discharge Instructions Diet Cardiac Diet Diabetic Activity as Tolerated Call MD for: Severe Uncontrolled Pain Call MD for: Persistant Dizziness or Light-Headedness Call MD for: Extreme Fatigue Call MD for: Difficulty Breathing, Headache or Visual Disturbances Anibal Mendez MD [address] [place] [address] [place] [phone] Schedule an appointment as soon as possible for a visit in 1 week Kvng Harrington MD [address] [facility] [phone] Arely Santana MD [address] [place], [place] [address] [phone] Schedule an appointment as soon as possible for a visit Medication List START taking these medications hydrALAZINE 25 MG tablet QTY: 90 tablet Refills: 1 Commonly known as: APRESOLINE Take 1 tablet by mouth 3 (three) times daily. CONTINUE taking these medications amLODIPine 5 MG tablet Refills: 0 Commonly known as: NORVASC aspirin 81 MG EC tablet Refills: 0 furosemide 20 MG tablet Refills: 0 Commonly known as: LASIX HYDROcodone-acetaminophen 5-325 MG per tablet Refills: 0 Commonly known as: NORCO isosorbide mononitrate 30 MG 24 hr tablet Refills: 0 Commonly known as: IMDUR omeprazole 20 MG capsule Refills: 0 Commonly known as: PRILOSEC potassium chloride 10 MEQ tablet Refills: 0 Commonly known as: K-DUR ramipril 10 MG capsule Refills: 0 Commonly known as: ALTACE STOP taking these medications atenolol 50 MG tablet Commonly known as: TENORMIN Where to Get Your Medications These are the prescriptions that you need to [facility]. You may get the following medications from any pharmacy - hydrALAZINE 25 MG tablet Disposition: Home Condition: Stable Code Status: Full Code An After Visit Summary was printed and given to the patient. Patient verbalized understanding, agreement, and compliance with discharge plan. Discharge took more than 35 minutes, to include final examination, discussion of admission , and preparation of prescriptions, instructions for on-going care, follow-up and documentat ion of discharge summary. Ren Ram 1:26 PM documented in this encounter Medications at Time of Discharge + + + +---------+ + + | Medication | Sig | Dispensed | Refills | Start | End Date | | | | | | Date | | + + + +---------+ + + | amLODIPine | Take 10 mg by mouth | | 0 | 11/25/19 | | | (NORVASC) 5 mg | daily. Takes 2 pills | | | 16 | | | tablet | daily | | | | | + + + +---------+ + + | furosemide (LASIX) | Take 20 mg by mouth | | 0 | 11/25/19 | | | 20 mg tablet | daily. | | | 16 | | + + + +---------+ + + | | Take 1 tablet by | | 0 | 11/25/19 | | | HYDROcodone-acetamin | mouth every 6 (six) | | | 16 | | | ophen (NORCO) 5-325 | hours as needed for | | | | | | mg per tablet | Pain. Only as needed | | | | | + + + +---------+ + + | omeprazole | Take 20 mg by mouth | | 0 | 11/25/19 | | | (PRILOSEC) 20 mg | every morning before | | | 16 | | | capsule | breakfast. | | | | | + + + +---------+ + + | potassium chloride | Take 10 mEq by mouth | | 0 | 11/25/19 | | | (KLOR-CON) 10 MEQ | daily. | | | 16 | | | ER tablet | | | | | | + + + +---------+ + + | ramipril (ALTACE) | Take 10 mg by mouth | | 0 | 11/25/19 | | | 10 MG capsule | daily. | | | 16 | | + + + +---------+ + + | hydrALAZINE | Take 1 tablet by | 90 | 1 | 11/26/19 | | | (APRESOLINE) 25 mg | mouth 3 (three) | tablet | | 16 | 7 | | tablet | times daily. | | | | | + + + +---------+ + + documented as of this encounter Progress Notes Conversion Transaction, Provider Unknown - 11/26/2015 9:01 AM PDTFormatting of this note m ight be different from the original. Case Management by Gloria Truong RN at 11/26/15900 Author: Gloria Truong RN Service: (none) Author Type: Registered Nurse Filed: 11/26/15904 Date of Service: 11/26/15900 Status: Signed Visual Merchandising Assistant: Gloria Truong RN (Registered Nurse) 11/26/15899 Discharge Planning Evaluation Admitting Diagnosis Precordial pain Readmission No Living Arrangements Spouse/significant other Support Systems Spouse/significant other;Children Type of Residence Private residence House type Apartment Elevator available No Steps to enter 3 Bathrooms on 1st Floor 1-Full Independent with ADL's Yes Independent with Mobility Yes Home Care Services No Caregiver after Discharge No Mental Status Oriented Power of Optometry Doctor Yes Power of Optometry Doctor Name Mikki- Anticipated Discharge Plan Post Acute Care Needs None at this time Plan communicated to patient/family Yes Resources Financial concerns No Transportation issues No Patient/Family concerns No Prescription Plan Yes Name of Pharmacy [facility] [place] Previous home health equipment No Anticipated Disposition Facility Type Home Medicare Important Message ([facility]) Not applicable Met with: patient and discussed discharge planning, Pt is a 84 y.o., male who lives with hi s . He is active and independent in ADLs., Pt uses CPAP at home and takes a regular do se aspirin daily( no RX blood thinners), no home 02, no out patient services used. The desirae ent states that he uses a walker to get OOB and occasionally he uses a cane. Pt denies disch arge needs. He plans to return home with his Patient's PCP is: ANIBAL MENDEZ Patient's insurance:Medicare/ODS Coverage concerns: no Medication coverage/concerns: y/n [facility] Delivery: Community resources utilized / needed: none at this time Assistance in transportation: will transport the patient home Identification of any specific education / training: none at this time Barriers to Discharge / Alternative housing needed: no Anticipated DCP: return to prior living situation Amina Truong RN [facility] [place], Provider Unknown - 11/26/2015 8:07 AM PDT Nurse Progress Note by Ericka Peguero RN at 11/26/15806 Author: Ericka Peguero RN Service: (none) Author Type: Registered Nurse Filed: 11/26/15808 Date of Service: 11/26/15806 Status: Signed Visual Merchandising Assistant: Ericka Peguero RN (Registered Nurse) Per Dr Ram, pt may go down for stress test with abnormal troponins. Ericka mcleod RN [facility] Transaction, Provider Unknown - 11/26/2015 5:49 AM PDT Nurse Progress Note by Misty Hoskins RN at 11/26/15548 Author: Misty Hoskins RN Service: (none) Author Type: Registered Nurse Filed: 11/26/15552 Date of Service: 11/26/15548 Status: Signed Visual Merchandising Assistant: Misty Hoskins RN (Registered Nurse) Pt alert and oriented x 4, Pt continued to be bradycardic all night, HR 40's and asymptomat ic. Pt denied any pain. Pt NPO since midnight for stress test. RT placed Hospital CPAP for s leep apnea, because pt didn't bring his home machine. No acute changes since previous assess ment, will continue to monitor.Misty Hoskins RN [facility] Transaction, Provider Unknown - 11/25/2015 5:52 PM PDT Nurse Progress Note by Ericka Peguero RN at 11/25/151751 Author: Ericka Peguero RN Service: (none) Author Type: Registered Nurse Filed: 11/25/151754 Date of Service: 11/25/151751 Status: Signed Visual Merchandising Assistant: Ericka Peguero RN (Registered Nurse) No complaints of chest pain since arrival from [facility]. Pt has continued to be bradyca rdic, HR 50's with multiple PVC's. Pt states understanding of NPO status at 0000 for stress test tomorrow. Home pain medication sent to pharmacy for holding. Ericka Peguero,RN [facility] Transaction, Provider Unknown - 11/25/2015 3:27 PM PDT Progress Notes by Mariah Pierson RPH at 11/25/15 1527 Author: Mariah Pierson RPH Service: (none) Author Type: Pharmacist Filed: 11/25/15 1527 Date of Service: 11/25/151526 Status: Signed Visual Merchandising Assistant: Mariah Pierson RPH (Pharmacist) Renal Dosing Monitoring: Stan Douglass 84 y.o. male Pharmacy dosing for renal function per Dr. Gardner CrCl cannot be calculated (Patient has no serum creatinine result on file.). Plan per protocol: Pt is not on any medications which require renal adjustment at present . Pharmacy will continue monitoring patient for appropriate dosing per renal function. 11/25/2015 3:26 PM Pharmacist: Mariah Pierson docume nted in this encounter H&P Notes Jed Gardner MD - 11/25/2015 2:53 PM PDTFormatting of this note might be different fr om the original. H&P by Jed Gardner MD at 11/25/15 0626 Author: Jed Gardner MD Service: Hospitalist Author Type: Physician Filed: 11/25/15 1504 Date of Service: 11/25/15 4663 Status: Signed Visual Merchandising Assistant: Jed Gardner MD (Physician) [facility] Service: Hospitalist Admission History & Physical Date of Admission: 11/25/2015 Requesting Physician: Emergency Department Reason for Admission: Chest pain/syncope workup History Obtained From: patient CHIEF COMPLAINT: Chest pain/syncope HISTORY OF PRESENT ILLNESS The patient is 84 y.o. male with significant past medical history of coronary artery diseas e, heart catheterization in 2002 with stents to the LAD and RCA then repeat heart catheteriz ation in 2003 with stent to the mid LAD (three-vessel coronary artery disease), followed by Dr. Kelley he last seen in 2003. History of hypertension on atenolol 50 mg bid, amlodipine, ramipril and Lasix. Patient states that he is done well he indicates 2 months ago he had episode of feeling diz zy then today while playing golf and seated in the golf cart he developed retrosternal chest discomfort graded 7 out of 10 with no radiation he felt diaphoretic and dizzy, he took a monroy blingual nitroglycerin with minimal relief (he states the prescription was filled approxima te 5 years ago , and felt it was an old prescription ), he then apparently passed out for ap proximately 60 seconds, on awakening he still had a chest discomfort, he was seen at [facility] emergency department, sublingual nitroglycerin was administered which resolved his ch est discomfort. He was noted to have sinus bradycardia with heart rates ranging 39-48 bpm no ischemic braxton es, cardiac enzymes were noted to be normal blood work was stable, creatinine 1.52. Emergency Department provider Dr. Salmeron requested a transfer to our facility for further workup. Patient seen at bedside, [facility] chest pain-free and hemodynamically stable. Patient will be worked up for a syncope and chest pain. REVIEW OF SYSTEMS Review of Systems Constitutional: Negative for fever, chills, activity change, appetite change and fatigue. HENT: Negative for congestion. Respiratory: Negative for shortness of breath. Cardiovascular: Positive for chest pain. Negative for palpitations and leg swelling. Gastrointestinal: Negative for nausea, vomiting and abdominal pain. Endocrine: Negative for heat intolerance and polyuria. Genitourinary: Negative for dysuria. Musculoskeletal: Negative for back pain and neck stiffness. Skin: Negative for wound. Neurological: Positive for light-headedness. Negative for speech difficulty and weakness. Psychiatric/Behavioral: Negative for confusion. The patient is not nervous/anxious. All other systems reviewed and are negative. Past Medical History Diagnosis Date Hemorrhoids 1955 Carcinoma (HCC) 2010 Melanoma (HCC) 2007 H/O cardiac catheterization 2003,2004 Past Surgical History Procedure Laterality Date Spinal fusion 1960 Appendectomy Tonsillectomy Shoulder surgery 2004 Allergies Allergen Reactions Cardura [Doxazosin] Other (See Comments) Unsure of reaction, "has been a long time" Penicillin G Other (See Comments) Unknown Penicillins Other (See Comments) Not known at this time Statins Other (See Comments) Pain, unableto tolerate Tetracycline Other (See Comments) Unknown Tomato Other (See Comments) Pt states he breaks out in blisters Vinegar [Acetic Acid] Other (See Comments) Pt reports he breaks out in blisters Prescriptions prior to admission Medication Sig Dispense Refill Last Dose amLODIPine (NORVASC) 5 MG tablet Take 10 mg by mouth daily. Takes 2 pills daily aspirin 81 MG EC tablet Take 81 mg by mouth daily with breakfast. atenolol (TENORMIN) 50 MG tablet Take 50 mg by mouth 2 (two) times daily. furosemide (LASIX) 20 MG tablet Take 20 mg by mouth daily. HYDROcodone-acetaminophen (NORCO) 5-325 MG per tablet Take 1 tablet by mouth every 6 (s ix) hours as needed for Pain. isosorbide mononitrate (IMDUR) 30 MG 24 hr tablet Take 30 mg by mouth daily. omeprazole (PRILOSEC) 20 MG capsule Take 20 mg by mouth every morning before breakfast. potassium chloride (K-DUR) 10 MEQ tablet Take 10 mEq by mouth daily. ramipril (ALTACE) 10 MG capsule Take 10 mg by mouth daily. No family history on file. Social History Social History Marital Status: Spouse Name: N/A Number of Children: N/A Years of Education: N/A Occupational History Not on file. Social History Main Topics Smoking status: Former Smoker -- 2.00 packs/day for 8 years Quit date: 03/13/1956 Smokeless tobacco: Not on file Alcohol Use: Not on file Drug Use: Not on file Sexual Activity: Not on file Other Topics Concern Not on file Social History Narrative No narrative on file PHYSICAL EXAM Vital Signs: BP 166/84 mmHg | Pulse 55 | Temp(Src) 97.8 F (36.6 C) (Oral) | Resp 18 | Ht 1.829 m (6' ) | SpO2 95% Physical Exam Constitutional: He is oriented to person, place, and time. He appears well-developed and we ll-nourished. No distress. Cardiovascular: Normal rate and regular rhythm. No murmur heard. Pulmonary/Chest: Effort normal and breath sounds normal. No respiratory distress. He has no wheezes. He exhibits no tenderness. Abdomina/Gl: Soft. Bowel sounds are normal. He exhibits no distension. Neurological: He is alert and oriented to person, place, and time. No cranial nerve deficit . Skin: Skin is warm. He is not diaphoretic. Psychiatric: He has a normal mood and affect. His behavior is normal. Nursing note and vitals reviewed. 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 Chest pain - History three-vessel coronary artery disease (stent 3 2002, 2003) - No ischemic changes noted on EKG, monitor cardiac enzymes, if normal proceed with nuclear medicine stress test for further evaluation, would contact Dr. Santana with any abnormal res ults. - Aspirin - Continue Imdur - Hold beta blockers due to sinus bradycardia 2. Syncope - Syncopal episode today during episode of chest pain, rule out coronary artery disease - Sinus bradycardia noted, possible cause of syncope, will hold atenolol - Transthoracic echocardiogram, evaluation of EF/valvulopathy 3. Sinus bradycardia - Patient with chest pain/syncope - On atenolol 50 mg bid; will hold - Continue amlodipine 4. History of hypertension - Hold atenolol due to bradycardia, continue amlodipine, Imdur, ramipril, Lasix 5. History of chronic kidney disease stage III - Renal function seems stable - Hold Lasix 20 mg, light hydration and S 75 ML's an hour 6. Deep vein thrombosis prophylaxis - None required at this point, patient observation, and laboratory Disposition: Observation Code Status: Full Code Primary Care Physician: ANIBAL Gardner MD 11/25/2015 documented in this encounter Procedure Notes Elda Palacios ARNP - 11/26/2015 10:54 AM PDTFormatting of this note might be different fr om the original. Procedures by DEEJAY Chance at 11/26/15 1051 Author: DEEJAY Chance Service: Radiology Author Type: Advanced Registered Nurse Prem navarrete Filed: 11/26/15 1055 Date of Service: 11/26/151053 Status: Signed Visual Merchandising Assistant: DEEJAY Chance (Advanced Registered Nurse Practitioner) Pre-procedure Diagnoses: 1. Chest pain, unspecified type [R07.9] Post-procedure Diagnoses: 1. Chest pain, unspecified type [R07.9] Procedures: 1. NM MYOCARDIAL PERFUSION SPECT - STRESS AND REST [[id number] (Custom)] [facility] Service: Diagnostic Imaging/Nuclear Medicine Cardiac Stress Test Note Type of Stress Test performed (protocol): Pharmacologic stress test Marino protocol time (if applicable): N/A Rhythm changes: None Ectopy: PVCs Symptoms experienced during exam: None ST/T wave changes: None Medications administered: Lexiscna 0.4 mg Donahue Treadmill Score: N/A Comments: None documented in this encounter Consult Notes Conversion Transaction, Provider Unknown - 11/26/2015 3:08 PM PDTFormatting of this note m ight be different from the original. Consults by Shandra Moore RD, DIMITRIE at 11/26/15 7724 Author: Shandra Moore RD, CDE Service: (none) Author Type: Plc Technician Filed: 11/26/152 Date of Service: 11/26/151507 Status: Signed Visual Merchandising Assistant: Shandra Moore RD, CDE (Plc Technician) Consult Orders: 1. Inpatient consult to art educator [[id number]] ordered by Cristofer Ken at 11/26/15 0816 Met with pt. Reports his pcp told him he had prediabetes. He was drinking regular orange soda and eating sweets, reports he cut that out of his diet about a month ago, when his pcp talked to him. States his does the cooking and they eat "lots of vegetable and fruits" . Pt's HbA1c is 7.1. Based on pt's age, probably is appropriate. Gave him a copy of Type 2 Diabetes booklet and reviewed the diet. Pt states he will be fol lowing up with his pcp next week and will discuss diabetes with him. Shandra Moore RD, MPH, CDE, Plc Technician 11/26/2015 3:11 PM docume nted in this encounter Plan of Treatment Not on filedocumented as of this encounter Procedures + +--------+ + + + | Procedure Name | Priori | Date/Time | Associated Diagnosis | Comments | | | ty | | | | + +--------+ + + + | NM MYOCARDIAL | Routin | 11/26/2015 | | Results for this | | PERFUSION MULT SPECT | e | 11:38 AM | | procedure are in the | | | | PDT | | results section. | + +--------+ + + + | ECG 12 LEAD | Routin | 11/26/2015 | | Results for this | | | e | 6:42 AM | | procedure are in the | | | | PDT | | results section. | + +--------+ + + + | EXTERNAL LAB: CBC | Routin | 11/26/2015 | | Results for this | | | e | 4:55 AM | | procedure are in the | | | | PDT | | results section. | + +--------+ + + + | LIPID PANEL | Routin | 11/26/2015 | | Results for this | | | e | 4:55 AM | | procedure are in the | | | | PDT | | results section. | + +--------+ + + + | TSH | Routin | 11/26/2015 | | Results for this | | | e | 4:55 AM | | procedure are in the | | | | PDT | | results section. | + +--------+ + + + | PHOSPHORUS | Routin | 11/26/2015 | | Results for this | | | e | 4:55 AM | | procedure are in the | | | | PDT | | results section. | + +--------+ + + + | MAGNESIUM | Routin | 11/26/2015 | | Results for this | | | e | 4:55 AM | | procedure are in the | | | | PDT | | results section. | + +--------+ + + + | HEMOGLOBIN A1C | Routin | 11/26/2015 | | Results for this | | | e | 4:55 AM | | procedure are in the | | | | PDT | | results section. | + +--------+ + + + | BASIC METABOLIC | Routin | 11/26/2015 | | Results for this | | PANEL | e | 4:55 AM | | procedure are in the | | | | PDT | | results section. | + +--------+ + + + | TROPONIN I | Routin | 11/25/2015 | | Results for this | | | e | 6:16 PM | | procedure are in the | | | | PDT | | results section. | + +--------+ + + + | ECHO COMPLETE W | Routin | 11/25/2015 | | Results for this | | CONTRAST | e | 3:28 PM | | procedure are in the | | | | PDT | | results section. | + +--------+ + + + | TROPONIN I | Routin | 11/25/2015 | | Results for this | | | e | 2:37 PM | | procedure are in the | | | | PDT | | results section. | + +--------+ + + + documented in this encounter Results NM Myocardial Perfusion Mult SPECT (11/26/2015 11:38 AM PDT) + + | Specimen | + + | | + + + + + | Impressions | Performed At | + + + | 1. Prominent thinning of the inferior wall, slightly greater on | | | stress supine images. This is probably due to patient body | | | habitus/diaphragmatic artifact. I cannot exclude infarct. No defined | | | ischemia. 2. LVEF 62% stress, 60% rest. 3. Preserved LV wall | | | motion. Using the risk stratification system at our | | | institution, this examination equates to at least a low risk based on | | | this imaging, arising from the criteria below (1). Note that this | | | should be interfaced with clinical and other data, potentially | | | affecting final categorization. 1. [place] [employer] | | | and [place] [employer] Scientific Statement. Circulation | | | (2008); 118: p 0045-1114 Selection Text Definition Low | | | Risk 1.Normal or small myocardial perfusion defect at rest or with | | | stress.* 2. No change of resting wall motion abnormalities during | | | stress* . * Although the published data are limited, patients | | | with these findings will probably not be at low risk in the presence | | | of either a high-risk treadmill score or severe resting left | | | ventricular dysfunction (LVEF <35%). Low risk equates with a less | | | than 1% annual mortality rate. Intermediate Risk 1. | | | Mild/moderate resting left ventricular dysfunction (LVEF=35% to 49%). | | | 2. Stress-induced moderate perfusion defect without LV dilation | | | or increased lung intake Intermediate risk equates with a 1%-3% | | | annual mortality rate. High Risk 1. Severe resting left | | | ventricular dysfunction (exercise LVEF <35%) 2. Severe exercise | | | left ventricular dysfunction (exercise LVEF <35%) 3. | | | Stress-induced large perfusion defect (particularly if anterior) | | | 4. Stress-induced multiple perfusion defects of moderate size 5. | | | Large, fixed perfusion defect with LV dilation 6. | | | Stress-induced moderate perfusion defect with LV dilation High | | | risk equates with a greater than 3% annual mortality rate. | | | | | + + + + + + | Narrative | Performed At | + + + | HISTORY: Chest pain. Hypertension. Dizziness. Coronary artery | | | disease. Stents in the LAD and RCA 2002. Stent in the LAD 2003. | | | TECHNIQUE: The patient was intravenously injected with 11 millicuries | | | technetium 99m sestamibi. Rest gated supine SPECT images were | | | obtained. The patient was then intravenously injected with 0.4 mg | | | Regadenason per protocol. The patient was finally intravenously | | | injected with 43 mCi technetium 99m sestamibi, and stress gated | | | supine SPECT, and prone SPECT scintigraphic images were obtained. | | | COMPARISON: Chest x-ray 11/25/15. Echocardiogram 11/25/15. | | | FINDINGS: There is prominent decreased activity of the inferior wall | | | with slight radiation to the lateral wall on rest images, accentuated | | | on the stress supine images, improved but not resolved on stress prone | | | images. I suspect infarct. Despite this finding, I do not see wall | | | motion abnormality. LVEF measures 62% stress, 60% rest, with preserved | | | left ventricular wall motion. Rest EDV 87 mL. Rest ESV 35 mL. | | | Stress EDV 95 mL. Stress ESV 36 mL. Transient ischemic dilatation | | | ratio 1.21, elevated. No left ventricular dilatation is seen on stress | | | motion or static images. This elevated ratio appears artifactual. | | + + + + + | Procedure Note | + + | Hari, Rad Conversion - 10/25/2018 11:12 AM PDT HISTORY:Chest pain. Hypertension. | | Dizziness. Coronary artery disease. Stents in the LAD and RCA 2002. Stent in the LAD | | 2003. TECHNIQUE:The patient was intravenously injected with 11 millicuries technetium | | 99m sestamibi. Rest gated supine SPECT images were obtained. The patient was then | | intravenously injected with 0.4 mg Regadenason per protocol. The patient was finally | | intravenously injected with 43 mCi technetium 99m sestamibi, and stress gated supine | | SPECT, and prone SPECT scintigraphic images were obtained. COMPARISON:Chest x-ray | | 11/25/15. Echocardiogram 11/25/15. FINDINGS:There is prominent decreased activity of the | | inferior wall with slight radiation to the lateral wall on rest images, accentuated on | | the stress supine images, improved but not resolved on stress prone images. I suspect | | infarct. Despite this finding, I do not see wall motion abnormality. LVEF measures 62% | | stress, 60% rest, with preserved left ventricular wall motion. Rest EDV 87 mL.Rest ESV | | 35 mL.Stress EDV 95 mL.Stress ESV 36 mL.Transient ischemic dilatation ratio 1.21, | | elevated. No left ventricular dilatation is seen on stress motion or static images. This | | elevated ratio appears artifactual. IMPRESSION: 1. Prominent thinning of the inferior | | wall, slightly greater on stress supine images. This is probably due to patient body | | habitus/diaphragmatic artifact. I cannot exclude infarct. No defined ischemia.2. LVEF | | 62% stress, 60% rest.3. Preserved LV wall motion. Using the risk stratification system | | at our institution, this examination equates to at least a low risk based on this | | imaging, arising from the criteria below (1). Note that this should be interfaced with | | clinical and other data, potentially affecting final categorization. 1. [employer] [employer] | | Association and [place] [employer] Scientific Statement. Circulation (2008); | | 118: p 0224-9471 Selection Text Definition Low Risk 1.Normal or small myocardial | | perfusion defect at rest or with stress.* 2. No change of resting wall motion | | abnormalities during stress* . * Although the published data are limited, patients with | | these findings will probably not be at low risk in the presence of either a high-risk | | treadmill score or severe resting left ventricular dysfunction (LVEF <35%). Low risk | | equates with a less than 1% annual mortality rate. Intermediate Risk 1. Mild/moderate | | resting left ventricular dysfunction (LVEF=35% to 49%). 2. Stress-induced moderate | | perfusion defect without LV dilation or increased lung intake Intermediate risk equates | | with a 1%-3% annual mortality rate. High Risk 1. Severe resting left ventricular | | dysfunction (exercise LVEF <35%) 2. Severe exercise left ventricular dysfunction | | (exercise LVEF <35%) 3. Stress-induced large perfusion defect (particularly if | | anterior) 4. Stress-induced multiple perfusion defects of moderate size5. Large, fixed | | perfusion defect with LV dilation 6. Stress-induced moderate perfusion defect with LV | | dilation High risk equates with a greater than 3% annual mortality rate. Electronically | | signed by Erasmo Arenas MD on 11/26/2015 11:59 AM | |Low Risk | | | |1.Normal or small myocardial perfusion defect at rest or with stress.* | | | |2. No change of resting wall motion abnormalities during stress* . | | | |* Although the published data are limited, patients with these findings will probably not b e at low risk in the presence of either a high-risk treadmill score or severe resting left v entricular dysfunction (LVEF <35%). | | | |Low risk equates with a less than 1% annual mortality rate. | | | | | |Intermediate Risk 1. Mild/moderate resting left ventricular dysfunction (LVEF=35% to 49%). | | | |2. Stress-induced moderate perfusion defect without LV dilation or increased lung intake | | | |Intermediate risk equates with a 1%-3% annual mortality rate. | | | | | |High Risk 1. Severe resting left ventricular dysfunction (exercise LVEF <35%) | | | |2. Severe exercise left ventricular dysfunction (exercise LVEF <35%) | | | |3. Stress-induced large perfusion defect (particularly if anterior) | | | |4. Stress-induced multiple perfusion defects of moderate size | |5. Large, fixed perfusion defect with LV dilation | | | |6. Stress-induced moderate perfusion defect with LV dilation | | | |High risk equates with a greater than 3% annual mortality rate. | | | | | + + ECG 12 lead (11/26/2015 6:42 AM PDT) + + + + + + | Component | Value | Ref Range | Performed | Pathologist | | | | | At | Signature | + + + + + + | DIAGNOSIS: | Sinus | | EXTERNAL | | | | bradycardiaOtherwise | | LAB | | | | normal ECGWhen compared | | | | | | with ECG of 03-OCT-2003 | | | | | | 07:17,Previous ECG has | | | | | | undetermined rhythm, | | | | | | needs reviewConfirmed by | | | | | | [facility] ([id number]) on | | | | | | 11/26/2015 7:34:13 AM | | | | + + + + + + + + | Specimen | + + | | + + + + + | Narrative | Performed At | + + + | Historically converted procedure from [facility] environment | EXTERNAL LAB | + + + + +---------+ + + | Performing | Address | City/State/Zipcode | Phone Number | | Organization | | | | + +---------+ + + | EXTERNAL LAB | | | | + +---------+ + + External Lab: [facility] (11/26/2015 4:55 AM PDT) + + + + + + | Component | Value | Ref Range | Performed | Pathologist | | | | | At | Signature | + + + + + + | WBC | 5.18Comment: Testing | 3.80 - 11.00 | EXTERNAL | | | | performed at [facility], [address] | K/uL | LAB | | | | [address], | | | | | | [place] [address] | | | | + + + + + + | Non- | 5.18Comment: Testing | 4.20 - 5.70 | EXTERNAL | | | Red Blood | performed at [facility], [address] | M/uL | LAB | | | Cells | [address], | | | | | Counted | [place] [address] | | | | + + + + + + | Hemoglobin | 15.0Comment: Testing | 13.2 - 17.0 | EXTERNAL | | | | performed at [facility], [address] | g/dL | LAB | | | | [address], | | | | | | [place] [address] | | | | + + + + + + | Hematocrit, | 46.1Comment: Testing | 39.0 - 50.0 % | EXTERNAL | | | POC | performed at [facility], [address] | | LAB | | | | [address], | | | | | | [place] [address] | | | | + + + + + + | MCV | 88.9Comment: Testing | 80.0 - 100.0 fl | EXTERNAL | | | | performed at [facility], [address] | | LAB | | | | [address], | | | | | | [place] [address] | | | | + + + + + + | MCH | 28.9Comment: Testing | 27.0 - 34.0 pg | EXTERNAL | | | | performed at [facility], [address] | | LAB | | | | [address], | | | | | | [place] [address] | | | | + + + + + + | MCHC | 32.5Comment: Testing | 32.0 - 35.5 | EXTERNAL | | | | performed at [facility], [address] | g/dL | LAB | | | | [address], | | | | | | [place] [address] | | | | + + + + + + | RDW-CV | 49.9Comment: Testing | 37 - 53 fl | EXTERNAL | | | | performed at [facility], [address] | | LAB | | | | [address], | | | | | | [place] [address] | | | | + + + + + + | Platelet | 212Comment: Testing | 150 - 400 K/uL | EXTERNAL | | | Count | performed at [facility], [address] | | LAB | | | Plasma | [address], | | | | | | [place] [address] | | | | + + + + + + | MPV | 8.0Comment: Testing | fl | EXTERNAL | | | | performed at [facility], [address] | | LAB | | | | [address], | | | | | | [place] [address] | | | | + + + + + + | Differentia | AUTOMATEDComment: | | EXTERNAL | | | l Type | Testing performed at | | LAB | | | | [facility], [address] | | | | | | [place] | | | | | | [address] | | | | + + + + + + | % Segmented | 69.27Comment: Testing | % | EXTERNAL | | | | performed at [facility], [address] | | LAB | | | Neutrophils | [address], | | | | | | [place] [address] | | | | + + + + + + | % | 15.95Comment: Testing | % | EXTERNAL | | | Lymphocytes | performed at [facility], [address] | | LAB | | | | [address], | | | | | | [place], [place] [address] | | | | + + + + + + | % Monocytes | 11.15Comment: Testing | % | EXTERNAL | | | | performed at [facility], [address] | | LAB | | | | [address], | | | | | | [place], [place] [address] | | | | + + + + + + | % | 2.88Comment: Testing | % | EXTERNAL | | | Eosinophils | performed at [facility], [address] | | LAB | | | | [address], | | | | | | [place] [address] | | | | + + + + + + | % Basophils | 0.75Comment: Testing | % | EXTERNAL | | | | performed at [facility], [address] | | LAB | | | | [address], | | | | | | [place] [address] | | | | + + + + + + | Absolute | 3.59Comment: Testing | 1.90 - 7.40 | EXTERNAL | | | Segmented | performed at [facility], [address] | K/uL | LAB | | | Neutrophils | [address], | | | | | | [place] [address] | | | | + + + + + + | Absolute | 0.83 (L)Comment: Testing | 1.00 - 3.90 | EXTERNAL | | | Lymphocytes | performed at [facility], [address] | K[address]uL | LAB | | | | [address], | | | | | | [place] [address] | | | | + + + + + + | Absolute | 0.58Comment: Testing | 0.00 - 0.80 | EXTERNAL | | | Monocytes | performed at [facility], [address] | K/uL | LAB | | | | [address], | | | | | | [place] [address] | | | | + + + + + + | Absolute | 0.15Comment: Testing | 0.00 - 0.50 | EXTERNAL | | | Eosinophils | performed at [facility], [address] | K/uL | LAB | | | | [address], | | | | | | [place] [address] | | | | + + + + + + | Absolute | 0.04Comment: Testing | 0.00 - 0.10 | EXTERNAL | | | Basophils | performed at [facility], [address] | K/uL | LAB | | | | [address], | | | | | | [place] [address] | | | | + + + + + + + + | Specimen | + + | Blood specimen | | (specimen) | + + + +---------+ + + | Performing | Address | City/State/Zipcode | Phone Number | | Organization | | | | + +---------+ + + | EXTERNAL LAB | | | | + +---------+ + + TSH (11/26/2015 4:55 AM PDT) + + + + + + | Component | Value | Ref Range | Performed | Pathologist | | | | | At | Signature | + + + + + + | TSH | 1.17Comment: Testing | 0.45 - 5.10 | EXTERNAL | | | | performed at [facility], [address] | uIU/mL | LAB | | | | [address], | | | | | | [place] [address] | | | | + + + + + + + + | Specimen | + + | Blood specimen | | (specimen) | + + + +---------+ + + | Performing | Address | City/State/Zipcode | Phone Number | | Organization | | | | + +---------+ + + | EXTERNAL LAB | | | | + +---------+ + + Phosphorus (11/26/2015 4:55 AM PDT) + + + + + + | Component | Value | Ref Range | Performed | Pathologist | | | | | At | Signature | + + + + + + | PHOSPHORUS | 2.8Comment: Testing | 2.3 - 4.8 mg/dL | EXTERNAL | | | | performed at [facility], [address] | | LAB | | | | [address], | | | | | | [place] [address] | | | | + + + + + + + + | Specimen | + + | Blood specimen | | (specimen) | + + + +---------+ + + | Performing | Address | City/State/Zipcode | Phone Number | | Organization | | | | + +---------+ + + | EXTERNAL LAB | | | | + +---------+ + + Magnesium (11/26/2015 4:55 AM PDT) + + + + + + | Component | Value | Ref Range | Performed | Pathologist | | | | | At | Signature | + + + + + + | Magnesium | 2.0Comment: Testing | 1.7 - 2.4 mg/dL | EXTERNAL | | | | performed at [facility], [address] | | LAB | | | | [address], | | | | | | [place] [address] | | | | + + + + + + + + | Specimen | + + | Blood specimen | | (specimen) | + + + +---------+ + + | Performing | Address | City/State/Zipcode | Phone Number | | Organization | | | | + +---------+ + + | EXTERNAL LAB | | | | + +---------+ + + Hemoglobin A1C (11/26/2015 4:55 AM PDT) + + + + + + | Component | Value | Ref Range | Performed | Pathologist | | | | | At | Signature | + + + + + + | Hemoglobin | 7.1 (H)Comment: The | 4.0 - 6.0 % | EXTERNAL | | | A1c | [place] [employer] | | LAB | | | | Association considers a | | | | | | hemoglobin A1c result of | | | | | | <7.0% to be the goal of | | | | | | diabetic therapy. | | | | | | When results are | | | | | | consistently >8.0%, the | | | | | | ADA suggests | | | | | | reevaluation of the | | | | | | treatment regimen. The | | | | | | testing method used is | | | | | | certified traceable to | | | | | | the Diabetes Control and | | | | | | Complications Trial | | | | | | reference method.Testing | | | | | | performed at [facility], [address], | | | | | | [place] [address] | | | | + + + + + + | Glycohemogl | 157Comment: The ADA | mg/dL | EXTERNAL | | | obin | considers an eAG result | | LAB | | | (GHb),Total | of LT 154 mg/dL to be | | | | | | the goal of diabetic | | | | | | therapy. Estimated | | | | | | Average Glucose | | | | | | calculated from | | | | | | hemoglobin A1c by use of | | | | | | the ADA recommended | | | | | | formula.Testing | | | | | | performed at [facility], [address] | | | | | | [facility], | | | | | | [place] [address] | | | | + + + + + + + + | Specimen | + + | Blood specimen | | (specimen) | + + + +---------+ + + | Performing | Address | City/State/Zipcode | Phone Number | | Organization | | | | + +---------+ + + | EXTERNAL LAB | | | | + +---------+ + + Lipid Panel (11/26/2015 4:55 AM PDT) + + + + + + | Component | Value | Ref Range | Performed | Pathologist | | | | | At | Signature | + + + + + + | Cholesterol | 195Comment: Testing | mg/dL | EXTERNAL | | | | performed at [facility], [address] | | LAB | | | | [address], | | | | | | [place] [address] | | | | + + + + + + | Triglycerid | 219 (H)Comment: Testing | mg/dL | EXTERNAL | | | es | performed at [facility], [address] | | LAB | | | | [address], | | | | | | [place] [address] | | | | + + + + + + | HDL | 33 (L)Comment: Testing | mg/dL | EXTERNAL | | | | performed at [facility], [address] | | LAB | | | | [address], | | | | | | [place] [address] | | | | + + + + + + | LDL, | 118 (H)Comment: Testing | mg/dL | EXTERNAL | | | Calculated | performed at [facility], [address] | | LAB | | | | [address], | | | | | | [place] [address] | | | | + + + + + + + + | Specimen | + + | Blood specimen | | (specimen) | + + + +---------+ + + | Performing | Address | City/State/Zipcode | Phone Number | | Organization | | | | + +---------+ + + | EXTERNAL LAB | | | | + +---------+ + + Basic Metabolic Panel (11/26/2015 4:55 AM PDT) + + + + + + | Component | Value | Ref Range | Performed | Pathologist | | | | | At | Signature | + + + + + + | Na | 138Comment: Testing | 135 - 145 | EXTERNAL | | | | performed at [facility], [address] | mmol/L | LAB | | | | [address], | | | | | | [place] [address] | | | | + + + + + + | K | 4.3Comment: Testing | 3.5 - 4.9 | EXTERNAL | | | | performed at [facility], [address] | mmol/L | LAB | | | | [address], | | | | | | [place] [address] | | | | + + + + + + | Cl | 104Comment: Testing | 99 - 109 mmol/L | EXTERNAL | | | | performed at [facility], [address] | | LAB | | | | [address], | | | | | | [place] [address] | | | | + + + + + + | CO2 | 28Comment: Testing | 23 - 32 mmol/L | EXTERNAL | | | | performed at [facility], [address] | | LAB | | | | [address], | | | | | | [place] [address] | | | | + + + + + + | Anion Gap | 10Comment: Testing | 5 - 20 mmol/L | EXTERNAL | | | | performed at [facility], [address] | | LAB | | | | [address], | | | | | | [place] [address] | | | | + + + + + + | Glucose, | 130 (H)Comment: Testing | 65 - 99 mg/dL | EXTERNAL | | | Fasting | performed at [facility], [address] | | LAB | | | | [address], | | | | | | [place] [address] | | | | + + + + + + | BUN | 24Comment: Testing | 8 - 25 mg/dL | EXTERNAL | | | | performed at [facility], [address] | | LAB | | | | [address], | | | | | | [place] [address] | | | | + + + + + + | Creatinine | 1.5 (H)Comment: Testing | 0.70 - 1.30 | EXTERNAL | | | | performed at [facility], [address] | mg/dL | LAB | | | | [address], | | | | | | [place] [address] | | | | + + + + + + | BUN/Creatin | 16Comment: Testing | | EXTERNAL | | | ine Ratio | performed at [facility], [address] | | LAB | | | | [address], | | | | | | [place] [address] | | | | + + + + + + | Calcium | 9.1Comment: Testing | 8.5 - 10.5 | EXTERNAL | | | | performed at [facility], [address] | mg/dL | LAB | | | | [address], | | | | | | [place] [address] | | | | + + + + + + | Estimated | 47 (L)Comment: GFR <60: | mL/min/1.73m2 | EXTERNAL | | | GFR | CHRONIC KIDNEY DISEASE, | | LAB | | | | IF FOUND OVER A 3 MONTH | | | | | | PERIOD.GFR <15: KIDNEY | | | | | | FAILURE.FOR | | | | | | AMERICANS, MULTIPLY THE | | | | | | CALCULATED GFR BY | | | | | | 1.210.Testing performed | | | | | | at L, [address] | | | | | [address], | | | | | | [place] [address] | | | | + + + + + + + + | Specimen | + + | Blood specimen | | (specimen) | + + + +---------+ + + | Performing | Address | City/State/Zipcode | Phone Number | | Organization | | | | + +---------+ + + | EXTERNAL LAB | | | | + +---------+ + + Troponin I (11/25/2015 6:16 PM PDT) + + + + + + | Component | Value | Ref Range | Performed | Pathologist | | | | | At | Signature | + + + + + + | Troponin I, | 0.288 (H)Comment: 0.00 | 0.00 - 0.10 | EXTERNAL | | | Qual | to 0.10 CONSISTENT | ng/mL | LAB | | | | WITH NORMAL | | | | | | POPULATION0.11 to 0.60 | | | | | | CONSISTENT WITH | | | | | | INCREASED RISK FOR | | | | | | ADVERSE OUTCOMES> 0.60 | | | | | | CONSISTENT | | | | | | WITH WHO CRITERIA FOR | | | | | | ACUTE [place] Testing | | | | | | performed at [facility];[address] | | | | | | [address] [facility];[place], [place] | | | | | | [address] | | | | + + + + + + + + | Specimen | + + | Blood specimen | | (specimen) | + + + +---------+ + + | Performing | Address | City/State/Zipcode | Phone Number | | Organization | | | | + +---------+ + + | EXTERNAL LAB | | | | + +---------+ + + ECHO Complete w Contrast (11/25/2015 3:28 PM PDT) + + | Specimen | + + | | + + + + + | Impressions | Performed At | + + + | 1. This was a technically difficult study with suboptimal views. 2. | | | Overall left ventricular systolic function is normal with, an EF | | | between 60 - 65 %. 3. There is moderate pulmonary hypertension. 4. | | | Poor visualization. Definity was used to opacify the left ventricular | | | chamber and improve delineation of the endocardial border. | | + + + + + + | Narrative | Performed At | + + + | Patient Name: STAN DOUGLASS Date of : 1930 | | | Performing Physician: He Nation MD | | | | | | INDICATIONS UNKNOWN CONCLUSIONS 1. | | | This was a technically difficult study with suboptimal views. 2. | | | Overall left ventricular systolic function is normal with, an EF | | | between 60 - 65 %. 3. There is moderate pulmonary hypertension. 4. | | | Poor visualization. Definity was used to opacify the left ventricular | | | chamber and improve delineation of the endocardial border. | | | FINDINGS -------- Study: A 2-dimensional transthoracic | | | echocardiogram with m-mode, spectral and color flow Doppler was | | | perfomed. Study: This was a technically difficult study with | | | suboptimal views. Left Ventricle: Overall left ventricular systolic | | | function is normal with, an EF between 60 - 65 %. Left Ventricle: The | | | left ventricle cavity size is normal. Left Ventricle: Left | | | ventricular wall thickness is normal. Left Ventricle: No regional | | | wall motion abnormalities. Left Ventricle: Poor tissue doppler signal | | | prevents accurate assessment of diastolic function. Right Ventricle: | | | The RV was not well visualized. Left Atrium: The left atrium was not | | | well visualized. Right Atrium: The right atrium was not well | | | visualized. Aortic Valve: The aortic valve was not well visualized. | | | Aortic Valve: There is no evidence of aortic regurgitation. Aortic | | | Valve: There is no evidence of aortic stenosis. Mitral Valve: The | | | mitral valve is normal. Mitral Valve: There is trace mitral | | | regurgitation. Tricuspid Valve: The tricuspid valve was not well | | | visualized. Tricuspid Valve: Trace tricuspid regurgitation present. | | | Tricuspid Valve: There is moderate pulmonary hypertension. Tricuspid | | | Valve: The right ventricular systolic pressure (pulmonary artery | | | systolic pressure), as measured by Doppler, is 54.29mmHg. Pulmonic | | | Valve: The pulmonic valve was not well visualized. Pericardium: There | | | is no pericardial effusion. Contrast: Poor visualization. Definity | | | was used to opacify the left ventricular chamber and improve | | | delineation of the endocardial border. MEASUREMENTS | | | EDV(Teich): 104.19 ml IVSd: 1.02 cm LVIDd: 4.73 cm | | | LVPWd: 1.39 cm LVOT Diam: 2.20 cm %FS: 24.82 % EF(Teich): | | | 49.14 % ESV(Teich): 52.99 ml IVSs: 1.12 cm LVIDs: 3.56 | | | cm LVPWs: 1.31 cm SV(Teich): 51.20 ml LVEF MOD A2C: 67.48 | | | % SV MOD A2C: 64.79 ml LVEF MOD A4C: 62.95 % SV MOD A4C: | | | 56.23 ml EF Biplane: 62.22 % LVEDV MOD BP: 92.99 ml LVESV MOD | | | BP: 35.12 ml LVEDV MOD A2C: 96.01 ml LVLd A2C: 8.06 cm | | | LVEDV MOD A4C: 89.32 ml LVLd A4C: 7.95 cm LVESV MOD A2C: | | | 31.21 ml LVLs A2C: 5.36 cm LVESV MOD A4C: 33.08 ml LVLs A4C: | | | 6.47 cm CO Biplane: 2.93 l/min HR: 50.71 BPM R-R: | | | 1182.99 ms Ao Diam: 3.31 cm AV Cusp: 1.44 cm LA Diam: 4.85 | | | cm LA/Ao: 1.46 HR: 47.66 BPM AV maxP.19 mmHg AV | | | meanP.46 mmHg AV Vmax: 1.34 m/s AV Vmean: 0.87 m/s AV | | | VTI: 31.51 cm MARIE Vmax: 2.68 cm2 MARIE (VTI): 2.66 cm2 LVCI | | | Dopp: 1.79 l/minm2 LVCO Dopp: 4.02 l/min HR: 47.87 BPM | | | LVOT maxP.59 mmHg LVOT meanP.76 mmHg LVSI Dopp: | | | 37.50 ml/m2 LVSV Dopp: 84.01 ml LVOT Vmax: 0.94 m/s LVOT | | | Vmean: 0.62 m/s LVOT VTI: 22.10 cm MCO: 571.16 ms MV A | | | Edd: 0.53 m/s MV DecT: 206.32 ms MV E Edd: 0.43 m/s MV E/A | | | Ratio: 0.80 MV PHT: 65.54 ms MVA By PHT: 3.35 cm2 MV A | | | Dur: 138.63 ms RAP: 5 mmHg RVSP: 54.29 mmHg TR maxPG: | | | 49.29 mmHg TR Vmax: 3.51 m/s TV A Edd: 0.27 m/s TV Dec Hamlin: | | | 2.14 m/s2 TV Dec Time: 140.89 ms TV E Edd: 0.30 m/s TV | | | E/A Ratio: 1.08 Nylon Machine Operator: JALIL Authenticated by: He | | | Sarahy LIANG Report Date/Time: 11-25-2015 17:15:23 | | + + + + + | Procedure Note | + + | Booker Noriega - 10/25/2018 11:12 AM PDT Patient Name: Cruz DOUGLASS | | of : 1930 Performing Physician: He Nation | | INDICATIONS U | | NKNOWN CONCLUSIONS 1. This was a technically difficult study with suboptimal | | views.2. Overall left ventricular systolic function is normal with, an EF between 60 - | | 65 %.3. There is moderate pulmonary hypertension.4. Poor visualization. Definity was | | used to opacify the left ventricular chamber and improve delineation of the endocardial | | border. FINDINGS--------Study: A 2-dimensional transthoracic echocardiogram with m-mode, | | spectral and color flow Doppler was perfomed.Study: This was a technically difficult | | study with suboptimal views.Left Ventricle: Overall left ventricular systolic function | | is normal with, an EF between 60 - 65 %.Left Ventricle: The left ventricle cavity size | | is normal.Left Ventricle: Left ventricular wall thickness is normal.Left Ventricle: No | | regional wall motion abnormalities.Left Ventricle: Poor tissue doppler signal prevents | | accurate assessment of diastolic function.Right Ventricle: The RV was not well | | visualized.Left Atrium: The left atrium was not well visualized.Right Atrium: The right | | atrium was not well visualized.Aortic Valve: The aortic valve was not well | | visualized.Aortic Valve: There is no evidence of aortic regurgitation.Aortic Valve: | | There is no evidence of aortic stenosis.Mitral Valve: The mitral valve is normal.Mitral | | Valve: There is trace mitral regurgitation.Tricuspid Valve: The tricuspid valve was not | | well visualized.Tricuspid Valve: Trace tricuspid regurgitation present.Tricuspid Valve: | | There is moderate pulmonary hypertension.Tricuspid Valve: The right ventricular systolic | | pressure (pulmonary artery systolic pressure), as measured by Doppler, is | | 54.29mmHg.Pulmonic Valve: The pulmonic valve was not well visualized.Pericardium: There | | is no pericardial effusion.Contrast: Poor visualization. Definity was used to opacify | | the left ventricular chamber and improve delineation of the endocardial border. | | MEASUREMENTS EDV(Teich): 104.19 mlIVSd: 1.02 cmLVIDd: 4.73 cmLVPWd: | | 1.39 cmLVOT Diam: 2.20 cm%FS: 24.82 %EF(Teich): 49.14 %ESV(Teich): 52.99 mlIVSs: | | 1.12 cmLVIDs: 3.56 cmLVPWs: 1.31 cmSV(Teich): 51.20 mlLVEF MOD A2C: 67.48 %SV | | MOD A2C: 64.79 mlLVEF MOD A4C: 62.95 %SV MOD A4C: 56.23 mlEF Biplane: 62.22 | | %LVEDV MOD BP: 92.99 mlLVESV MOD BP: 35.12 mlLVEDV MOD A2C: 96.01 mlLVLd A2C: | | 8.06 cmLVEDV MOD A4C: 89.32 mlLVLd A4C: 7.95 cmLVESV MOD A2C: 31.21 mlLVLs A2C: | | 5.36 cmLVESV MOD A4C: 33.08 mlLVLs A4C: 6.47 cmCO Biplane: 2.93 l/minHR: 50.71 | | BPMR-R: 1182.99 msAo Diam: 3.31 cmAV Cusp: 1.44 cmLA Diam: 4.85 cmLA/Ao: | | 1.46HR: 47.66 BPMAV maxP.19 mmHgAV meanP.46 mmHgAV Vmax: 1.34 m/Angelica | | Vmean: 0.87 m/Angelica VTI: 31.51 cmAVA Vmax: 2.68 cm2AVA (VTI): 2.66 so9OAVC Dopp: | | 1.79 l/uazk6MARF Dopp: 4.02 l/minHR: 47.87 BPMLVOT maxP.59 mmHgLVOT meanPG: | | 1.76 mmHgLVSI Dopp: 37.50 ml/m2LVSV Dopp: 84.01 mlLVOT Vmax: 0.94 m/sLVOT Vmean: | | 0.62 m/sLVOT VTI: 22.10 cmMCO: 571.16 msMV A Edd: 0.53 m/sMV DecT: 206.32 msMV | | E Edd: 0.43 m/sMV E/A Ratio: 0.80MV PHT: 65.54 msMVA By PHT: 3.35 cm2MV A Dur: | | 138.63 msRAP: 5 mmHgRVSP: 54.29 mmHgTR maxP.29 mmHgTR Vmax: 3.51 m/sTV A | | Edd: 0.27 m/sTV Dec Hamlin: 2.14 m/s2TV Dec Time: 140.89 msTV E Edd: 0.30 m/sTV | | E/A Ratio: 1.08 Nylon Machine Operator: MIKAuthenticated by: He Nation MDReport Date/Time: | | 11-25-2015 17:15:23 IMPRESSION: 1. This was a technically difficult study with | | suboptimal views.2. Overall left ventricular systolic function is normal with, an EF | | between 60 - 65 %.3. There is moderate pulmonary hypertension.4. Poor visualization. | | Definity was used to opacify the left ventricular chamber and improve delineation of the | | endocardial border. | |IVSd: 1.02 cm | |LVIDd: 4.73 cm | |LVPWd: 1.39 cm | |LVOT Diam: 2.20 cm | |%FS: 24.82 % | |EF(Teich): 49.14 % | |ESV(Teich): 52.99 ml | |IVSs: 1.12 cm | |LVIDs: 3.56 cm | |LVPWs: 1.31 cm | |SV(Teich): 51.20 ml | |LVEF MOD A2C: 67.48 % | |SV MOD A2C: 64.79 ml | |LVEF MOD A4C: 62.95 % | |SV MOD A4C: 56.23 ml | |EF Biplane: 62.22 % | |LVEDV MOD BP: 92.99 ml | |LVESV MOD BP: 35.12 ml | |LVEDV MOD A2C: 96.01 ml | |LVLd A2C: 8.06 cm | |LVEDV MOD A4C: 89.32 ml | |LVLd A4C: 7.95 cm | |LVESV MOD A2C: 31.21 ml | |LVLs A2C: 5.36 cm | |LVESV MOD A4C: 33.08 ml | |LVLs A4C: 6.47 cm | |CO Biplane: 2.93 l/min | |HR: 50.71 BPM | |R-R: 1182.99 ms | |Ao Diam: 3.31 cm | |AV Cusp: 1.44 cm | |LA Diam: 4.85 cm | |LA/Ao: 1.46 | |HR: 47.66 BPM | |AV maxP.19 mmHg | |AV meanP.46 mmHg | |AV Vmax: 1.34 m/s | |AV Vmean: 0.87 m/s | |AV VTI: 31.51 cm | |MARIE Vmax: 2.68 cm2 | |MARIE (VTI): 2.66 cm2 | |LVCI Dopp: 1.79 l/minm2 | |LVCO Dopp: 4.02 l/min | |HR: 47.87 BPM | |LVOT maxP.59 mmHg | |LVOT meanP.76 mmHg | |LVSI Dopp: 37.50 ml/m2 | |LVSV Dopp: 84.01 ml | |LVOT Vmax: 0.94 m/s | |LVOT Vmean: 0.62 m/s | |LVOT VTI: 22.10 cm | |MCO: 571.16 ms | |MV A Edd: 0.53 m/s | |MV DecT: 206.32 ms | |MV E Edd: 0.43 m/s | |MV E/A Ratio: 0.80 | |MV PHT: 65.54 ms | |MVA By PHT: 3.35 cm2 | |MV A Dur: 138.63 ms | |RAP: 5 mmHg | |RVSP: 54.29 mmHg | |TR maxP.29 mmHg | |TR Vmax: 3.51 m/s | |TV A Edd: 0.27 m/s | |TV Dec Hamlin: 2.14 m/s2 | |TV Dec Time: 140.89 ms | |TV E Edd: 0.30 m/s | |TV E/A Ratio: 1.08 | | | |Nylon Machine Operator: JALIL | |Authenticated by: He Nation MD | |Report Date/Time: 11-25-2015 17:15:23 | | | |IMPRESSION: | |1. This was a technically difficult study with suboptimal views. | |2. Overall left ventricular systolic function is normal with, an EF between 60 - 65 %. | |3. There is moderate pulmonary hypertension. | |4. Poor visualization. Definity was used to opacify the left ventricular chamber and improv e delineation of the endocardial border. | + + Troponin I (11/25/2015 2:37 PM PDT) + + + + + + | Component | Value | Ref Range | Performed | Pathologist | | | | | At | Signature | + + + + + + | Troponin I, | 0.182 (H)Comment: 0.00 | 0.00 - 0.10 | EXTERNAL | | | Qual | to 0.10 CONSISTENT | ng/mL | LAB | | | | WITH NORMAL | | | | | | POPULATION0.11 to 0.60 | | | | | | CONSISTENT WITH | | | | | | INCREASED RISK FOR | | | | | | ADVERSE OUTCOMES> 0.60 | | | | | | CONSISTENT | | | | | | WITH WHO CRITERIA FOR | | | | | | ACUTE [place] Testing | | | | | | performed at [facility];[address] | | | | | | [address];[place], [place] | | | | | | [address] | | | | + + + + + + + + | Specimen | + + | Blood specimen | | (specimen) | + + + +---------+ + + | Performing | Address | City/State/Zipcode | Phone Number | | Organization | | | | + +---------+ + + | EXTERNAL LAB | | | | + +---------+ + + documented in this encounter Visit Diagnoses + + | Diagnosis | + + | Type 2 DM with CKD stage 3 and hypertension (HCC) | + + | Bradycardia, sinus Other specified cardiac dysrhythmias | + + | Syncope and collapse | + + documented in this encounter
--- OUTSIDE RECORDS SUMMARY | ~2019-10-06 | XMS | Encounter Summary ---
Demographics + + + | Address | [address] | | | [place] [address] | + + + | Home Phone | | + + + | Preferred Language | Unknown | + + + | Marital Status | | + + + | Spiritism Affiliation | NON | + + + | Race | White | + + + | Ethnic Group | Not or | + + + Author + + + | Author | [facility] | + + + | Organization | [facility] | + + + | [...] [place] | | | | | [address] | | + + + + + Care Team Providers + +------+ + | Care Practical Nursing Faculty Name | Role | Phone | + [...] | | | | | Rubina Carty [place], | | | | | | [place] [address] | | | +--------+ + + + [...]
--- OUTSIDE RECORDS SUMMARY | ~2019-10-06 | XMS | Encounter Summary ---
Demographics + + + | Address | [address] | | | [place] [address] | + + + | Home Phone | | + + + | Preferred Language | Unknown | + + + | Marital Status | | + + + | Christianity Affiliation | 1069 | + + + | Race | Unknown | + + + | Ethnic Group | Unknown | + + + Author + + + | Author | [facility] | | | and [place] | + + + | Organization | [facility] | | | and [place] | + + + | Address | Unknown | + + + | Phone | Unavailable | + + + Support + + + + + | Name | Relationship | Address | Phone | + + + + + | Mikki Douglass | ECON | [place] [place], [place] | | | | | [address] | | + + + + + | Jameel Douglass | ECON | Unknown | | + + + + + Care Team Providers + +------+ + | Care Marine Farmer Name | Role | Phone | + +------+ + | Rosanne White | PCP | | | PA | | | + +------+ + Encounter Details +--------+ + + + + | Date | Type | Department | Care Team | Description | +--------+ + + + + | 10/24/ | Orders Only | [facility] | Conversion | | | 2018 | | CONVERSION DEP [address] | Transaction, | | | | | [address] | Provider Unknown | | | | | [place], [place] | [phone] | | | | | [address] | | | | | | [phone] | | | +--------+ + + + [...]
--- OUTSIDE RECORDS SUMMARY | ~2019-10-06 | XMS | Encounter Summary ---
Demographics + + + | Address | [address] | | | [place] [address] | + + + | Home Phone | | + + + | Preferred Language | Unknown | + + + | Marital Status | | + + + | Oriental Orthodox Affiliation | NON | + + + [...] [place] | | | | | [address] | | + + + + + Care Team Providers + +------+ + | Care Manager Flight Name | Role | Phone | + [...] | | | | | | scalp ([facility]) | [address] | | | | | | Procedures | Ave | | | | | | [place] | [place], [place] | | | | | | LYMPHATICS | [address] | | | | | | MAPPING | Phone: | | | | | | | [phone] | | | | | | | Fax: | | | | | | | [phone] | | +--------+--------+ + + + + Reason for Visit AUTH/CERT +--------+--------+ + + + + | Status | Reason | Specialty | Diagnoses / | Referred By | Referred To | | | | | Procedures | Contact | Contact | +--------+--------+ + + + + | | | | | | | +--------+--------+ + + + + Encounter Details +--------+ + + + + | Date | Type | Department | Care Team | Description | +--------+ + + + + | 06/18/ | Hospital | Nuclear Medicine | | | | 2016 | Encounter | at [facility] [address] | | | | | | [address] | | | | | | [place], | | | | | | Basement [place], | | | | | | [place] [address] | | | | | | [phone] | | | +--------+ + + + [...] + +--------+ + + + | [place] [facility]ING | Routin | 06/19/2015 | Melanoma of scalp | Results for this | | | e | 11:30 AM | (HCC) | procedure are in the | | | | PDT | | results section. | + +--------+ + + + | ORDERS OTHER | | 06/19/2015 | | Results for [...] | + +---------+ + + | [facility] DEPARTMENT OF | | | | | RADIOLOGY | | | | + +---------+ + + ORDERS OTHER (06/19/2015 12:00 AM PDT) + + + | Narrative | Performed At | + + + | | | + + + documented in this encounter Visit Diagnoses + + | Diagnosis | + + | Melanoma of scalp (HCC) Malignant melanoma of skin of scalp and neck | + + documented in this encounter"
--- OUTSIDE RECORDS SUMMARY | ~2019-10-06 | XMS | Encounter Summary ---
Demographics + + + | Address | [address] | | | [place] [address] | + + + | Home Phone [...] + + + | Author | [facility] | + + + | Organization | [facility] | + + + | [...] [place] | | | | | [address] | | + + + + + Care Team Providers + +------+ + | Care Accounts Receivable Accountant Name | Role | Phone | + [...] + + | 06/18/ | Hospital | [facility] [address] | Nikos Mchugh MD | | | 2016 - | Encounter | [address] | [address] | | | | | [facility] | [place], [place] | | | 06/19/ | | [place], [place] | [address] | | | 2015 | | [address] | [phone] | | | | | [phone] | | | +--------+ + + + [...] Admission Date: 06/19/2015 Discharge Date: 06/20/2015 Service: [facility] Surgery Team Summary: 84 yo m w/ hx of with a suspicious pigmented lesion of the scalp. This occurred at the site of a prior excision. Partial biopsy by Dr Benites was read at [facility] as melanoma, at least 0. 57mm, in radial growth phase, with no ulceration or LVI but 1 miosis/mm2, he is T1bN0, stage Ib. He was taken to the operating room on 06/19/2015 and underwent Excision of scalp melanoma with sentinel lymph node biopsy with adjacent tissue transfer repair of right scalp defect (total undermined area of [id number]). He tolerated the procedure well but due [...] 1 capsule by mouth two times daily. Pleas e continue to take this while on [...] risk of constipation will need to take [id number] medications to manag e this side effect. [...] Discharging Attending: MD Natalia Alatorre MD Resident, [facility], Dept. of Surgery Pager [phone] documented in this encoun ter Discharge Instructions [...] please call the Facial Plastics Clinic, at [phone] with any ques tions or concerns. Otherwise, you may call the Otolaryngology resident at [phone] for c oncerns, such as difficulty breathing [...] a patient satisfaction survey from "[employer] Kinc[employer]". Coy calzada appreciate your feedback on the survey to help us provide excellent service to you and your family. AttachmentsThe following attachments cannot be sent through Care Everywhere.MELANOMA (ENGLI SH)SURGERY: GENERIC: POST-OP (UPPER SORBIAN)documented in this encounter Medications at Time of [...] documented findings and plan of care. POD#1. AVSs, dressing dry, office manager intact. Home today, F/u on 06/29. Nikos Mchugh MD [facility] [address] [place], [place] [address] electronically signed by Nikos Mchugh [...] Salo Elmore MD R-1, Department of Surgery [facility] Pager #[phone] Natalia Mueller MD - 6:02 PM PDTContinues [...] The patient was positioned appropriately. The following operations team leader s were present during the team pause: [...] 06/19/2015 Attending | | Surgeon:Nikos Mchugh MD Electric Fork Operator(s):Natalia Treviño MD, | | resident in Surgery. Preoperative Diagnosis: Melanoma of the right | | parietal scalp.Postoperative Diagnosis: Melanoma of the right parietal scalp.Procedure: | | 1.Preoperative injection Lymphazurin blue dye, right parietal scalp melanoma | | site.2.Wide excision right parietal scalp melanoma 3.5 x 3.5 cm, full thickness down to | | but not including pericranium.3.[place] lymph node biopsy, right periparotid region, | | deep.4.[place] lymph node biopsy, right neck level 2, deep.Specimens: 1.Wide excision | | melanoma, right parietal scalp, 3.5 x 3.5 cm, full thickness down to but not including | | pericranium, oriented for Pathology.2.[place] lymph nodes, sent as a single specimen on | | Telfa, from the right periparotid region.3.[place] lymph nodes, from the right neck | [...] 06/19/2015 15:04:28DT: 06/19/2015 | | 16:18:08Job #: [id number] | | | | | |Nikos Mchugh MD | |UZAIR/ELDER | | | | | | /[id number] | + + PROCEDURE NOTE (06/20/2015 10:45 [...] (total undermined area of | | | [id number]) Anesthesia: General Endotracheal Specimens: | | | [...] | | undermined to a total of 18t42td in a subgaleal plane. Deep wound | [...] condition. Luc Rhodes | | | MD Jescia Vice President Corporate Communications Facial Plastic and Reconstructive | | | Surgery Department of Otolaryngology/ Head and Neck Surgery Tel:[phone] | | | [phone] [email or web address] | | + + + CAPILLARY BLOOD GLUCOSE (NO CHG), POC (06/19/2015 3:24 PM PDT) + +---------+ + + + | Component | Value | Ref Range | Performed | Pathologist | | | | | At | Signature | + +---------+ + + + | BLOOD | 118 (H) | 60 - 99 mg/dL | [facility] - | | | GLUCOSE, | | | [place] | | | POC | | | [place], POINT | | | | | | OF [...] + | [facility] | [address] | [place], [place] | | | [place] [facility] | [facility] | [address] | | | TESTS | | | [...] OF | | | | OF SPECIMEN:B [place] | | PATHOLOGY | | | | [...] Diagnosis:A: | | | | | | [place] lymph nodes, | | | | | | right anirudh-parotid, | | | | | | biopsy:- Fibroadipose | | | | | | tissue and salivary | | | | | | gland, negative for | | | | | | malignancy (seecomment) | | | | | | B: [place] | | | | | | lymph [...] the | | | | | | [facility] sentinel lymph node | | | | | | protocol formelanoma | | | | | | and reveal no metastatic | | | | | | melanoma. Based on the | | | | | | invasive melanomapresent | | | | | | only in the prior shave | | | | | | biopsy ([facility] | | | | | | [id number]) [...] necessary | | | | | | [facility] | | | | | | care. This test was | | | | | | developed and its | | | | | | performancecharacteristi | | | | | | cs determined by [facility] | | | | | | laboratories. [...] 1/ | | | | | | [id number]: | | | | | | Not [...] | | | | | | (pT): [id number] Lymph | | | | | | Nodes (pN): | | | | | | [id number] Nodes | | | | | | [...] B: | | | | | | Ell[place] nodes right | | | | | [...] nodes:A1B: | | | | | | [place] nodes right | | | | | [...] Ocampo | | | | | | DOPathologistElectronica | | | | | | lly Signed 06/24/2015 | | | | | [...] | + + + + + | [facility] | [address] | [place] [address] | | | PATHOLOGY | [address] [...] | + + documented in this encounter Administered Medications + +--------+ [...] +--------+---+---+ +---+---+ | | | +---+---+ + + + +---+---+---+ | NaCl 0.9 % solution 10 mL/hr, | given by | 06/19/19 | | | | | intravenous, PROCEDURE | | 16 3:11 | | | | | CONTINUOUS, Starting 06/19/15 | anesthes | PM PDT | | | | | at 1200, Until Mon06/19/15 at 1853 | iology | | | [...] tablet 1 dose, | | | Starting 06/19/15 at 1628, | | | Until 06/19/15 at 1629 | | + +---+ | | | + +---+ documented in this encounter
--- OUTSIDE RECORDS SUMMARY | ~2019-10-06 | XMS | Encounter Summary ---
Demographics + + + | Address | [address] | | | [place] [address] | + + + | Home Phone | | + + + | Preferred Language | Unknown | + + + | Marital Status | | + + + | Yazidi Affiliation | NON | + + + [...] [place] | | | | | [address] | | + + + + + Care Team Providers + +------+ + | Care Automatic Bandsaw Tender Name | Role | Phone | + +------+ + | Asael Mendez MD | PCP | | + +------+ + Encounter Details +--------+ + + + + | Date | Type | Department | Care Team | Description | +--------+ + + + + | 06/18/ | Pharmacy | Outpatient Retail | | | | 2015 | Visit | [facility] | | | | | | [address] | | | | | | [address] [place], [place] | | | | | | [address] | | | | | | [phone] | | | +--------+ + + + [...]
--- OUTSIDE RECORDS SUMMARY | ~2019-10-06 | XMS | Encounter Summary ---
Demographics + + + | Address | [address] | | | [place] [address] | + + + | Home Phone | | + + + | Preferred Language | Unknown | + + + | Marital Status | | + + + | Latter-Day Affiliation | 1069 | + + + | Race | Unknown | + + + | Ethnic Group | Unknown | + + + Author + + + | Author | [facility] | | | and [place] | + + + | Organization | [facility] | | | and [place] | + + + | Address | Unknown | + + + | Phone | Unavailable | + + + Support + + + + + | Name | Relationship | Address | Phone | + + + + + | Mikki Douglass | ECON | [address] [place], [place] | | | | | [address] | | + + + + + | Jameel Douglass | ECON | Unknown | | + + + + + Care Team Providers + +------+ + | Care Alignment Mechanic Name | Role | Phone | + +------+ + | Rosanne White | PCP | | | [place] | | | + +------+ + Encounter Details +--------+ + + + + | Date | Type | Department | Care Team | Description | +--------+ + + + + | 11/25/ | Orders Only | [facility] | Ren Ram | | | 2016 | | CONVERSION DEP [address] | Wes Cleveland MD [address] | | | | | [address] | [address] | | | | | [place], [place] | [place] [address] | | | | | [address] | [phone] | | | | | [phone] | | | +--------+ + + + [...]
--- OUTSIDE RECORDS SUMMARY | ~2019-10-06 | XMS | Encounter Summary ---
Demographics + + + | Address | [address] | | | [place] [address] | + + + | Home Phone | | + + + | Preferred Language | Unknown | + + + | Marital Status | | + + + | Confucianist Affiliation | NON | + + + | Race | White | + + + | Ethnic Group | Not or | + + + Author + + + | Author | [facility] | + + + | Organization | [facility] | + + + | Address | Unknown | + + + | Phone | Unavailable | + + + Support + + + + + | Name | Relationship | Address | Phone | + + + + + | Nancy Douglass | ECON | [address] | | | | | [place] | | | | | [address] | | + + + + + Care Team Providers + +------+ + | Care Packing Machine Feeder Name | Role | Phone | + [...] Pharmacy | | | | | | [address] | | | | | | [address] [place], [place] | | | | | | [address] | | | | | | [phone] | | | +--------+ + + + [...]
--- OUTSIDE RECORDS SUMMARY | ~2019-10-06 | XMS | Encounter Summary ---
Demographics + + + | Address | [address] | | | [place] [address] | + + + | Home Phone | | + + + | Preferred Language | Unknown | + + + | Marital Status | | + + + | Holiness Affiliation | 1069 | + + + | Race | Unknown | + + + | Ethnic Group | Unknown | + + + Author + + + | Author | [facility] | | | and [place] | + + + | Organization | [facility] | | | and [place] | + + + | Address | Unknown | + + + | Phone | Unavailable | + + + Support + + + + + | Name | Relationship | Address | Phone | + + + + + | Mikki Douglass | ECON | [address] [place], [place] | | | | | [address] | | + + + + + | Jameel Douglass | ECON | Unknown | | + + + + + Care Team Providers + +------+ + | Care Tractor Technician Name | Role | Phone | + +------+ + PCP | Unavailable | + +------+ + Encounter Details +--------+ + + + + | Date | Type | Department | Care Team | Description | +--------+ + + + + | 02/27/ | Hospital | [facility] | Kadeem Whittington | | | 1994 | Encounter | MED CTR SLEEP | MD Eno[address] | | | | | [place] [address] | [address] | | | | | [place], [place] | [place] [address] | | | | | [address] | [phone] | | | | | [phone] | | | +--------+ + + + [...]
--- OUTSIDE RECORDS SUMMARY | ~2019-10-06 | XMS | Encounter Summary ---
Demographics + + + | Address | [address] | | | [place] [address] | + + + | Home Phone | | + + + | Preferred Language | Unknown | + + + | Marital Status | | + + + | Sikh Affiliation | NON | + + + | Race | White | + + + | Ethnic Group | Not or | + + + Author + + + | Author | [facility] | + + + | Organization | [facility] | + + + | Address | Unknown | + + + | Phone | Unavailable | + + + Support + + + + + | Name | Relationship | Address | Phone | + + + + + | Nancy Douglass | ECON | [address] | | | | | [place] | | | | | [address] | | + + + + + Care Team Providers + +------+ + | Care Allergist/Immunologist Name | Role | Phone | + [...] + + + + | 06/18/ | Anesthesia | [address] | Sriram Boswell, | | | 2016 | Event | [address] | ,PhD [address] | | | | | [address] | [address] | | | | | Ambulatory Surgery | [place], [place] | | | | | Admitting Desk | [address] | | | | | Located on the [facility] | [phone] | | | | | floor, Room [facility] | | | | | | [place], [place] | Michell Conte, | | | | | [address] | JUMPBASTING FACING BASTER [address] | | | | | | [address] | | | | | | [place], [place] | | | | | | [address] | | | | | | [phone] | | | | | | | | +--------+ + + + + Anesthesia Record + + + + + | Procedure Name | Responsible | Anesthesia Start | Anesthesia Stop Time | | | Anesthesiologist | Time | | + + + + + | WIDE EXCISION | Per Kellee Boswell, | 06/19/15 1305 | 06/19/15 1514 | | MELANOMA RIGHT | MD,PhD | | | | SCALP, SENTINEL NODE [...] + +------+ | Meds | +------+ + +---------+ | Name | Total | + +---------+ | ceFAZolin (ANCEF) injection 2 g | 2 g | + +---------+ | fentaNYL | 200 mcg | + +---------+ | propofol | 200 mg | + +---------+ | lidocaine 2% | 60 mg | + +---------+ | succinylcholine | 120 mg | + +---------+ | ePHEDrine | 20 mg | + +---------+ | PHENYLEPHrine | 350 mcg | + +---------+ | glycopyrrolate | 0.2 mg | + +---------+ | HYDROmorphone | 0.8 mg | + +---------+ | ondansetron | 4 mg | + +---------+ | NaCl 0.9 % solution | 800 mL | + +---------+ + + | Name | + + | Insp Sevo | + + | Et Sevo | + + | O2 Flow Rate (Total Liters) | + + | Air Flow rate (L/min) | + + + + | No [...] in this encounter Administered Medications + +--------+ +------+------+------+ | Medication Order | MAR | Action | Dose | Rate | Site | | | Action | Date | | | | + +--------+ +------+------+------+ | ceFAZolin (ANCEF) injection 2 g | Given | 06/19/19 | 2 g | | | | 2 g, intravenous, PREPROCEDURE | | 16 1:33 | | | | | ONCE, 1 dose, Starting Mon06/19/15 | | PM PDT | | | | | at 1150, Until Mon06/19/15 at | | | | | | | 1333 | | | | | | + +--------+ +------+------+------+ +---+---+ | | | +---+---+ + +-------+ +------+---+---+ | ePHEDrine injection | Given | 06/19/19 | 5 mg | | | | intravenous, INTRAPROCEDURE PRN, | | 16 2:23 | | | | | Starting 06/18/16 at 1323, | | PM PDT | | | | | Until 06/19/15 at 1503 | | | | | | + +-------+ +------+---+---+ +-------+ +-------+---+---+ | Given | 06/19/19 | 10 mg | | | | | 16 1:26 | | | | | | PM PDT | | | | +-------+ +-------+---+---+ | Given | 06/19/19 | 5 mg | | | | | 16 1:23 | | | | | | PM PDT | | | | +-------+ +-------+---+---+ +---+---+ | | | +---+---+ + +-------+ +--------+---+---+ | fentaNYL citrate (PF) | Given | 06/19/19 | 50 mcg | | | | (SUBLIMAZE) injection | | 16 2:32 | | | | | INTRAPROCEDURE PRN, Starting Fri | | PM PDT | | | | | 06/19/15 at 1305, Until Mon06/19/15 | | | | | | | at 1503, sedation | | | | | | + +-------+ +--------+---+---+ +-------+ +---------+---+---+ | Given | 06/19/19 | 25 mcg | | | | | 16 1:43 | | | | | | PM PDT | | | | +-------+ +---------+---+---+ | Given | 06/19/19 | 100 mcg | | | | | 16 1:12 | | | | | | PM PDT | | | | +-------+ +---------+---+---+ +---+---+ | | | +---+---+ + +-------+ +--------+---+---+ | glycopyrrolate (CHUN) | Given | 06/19/19 | 0.2 mg | | | | injection INTRAPROCEDURE PRN, | | 16 1:30 | | | | | Starting Mon06/19/15 at 1330, | | PM PDT | | | | | Until Mon06/19/15 at 1503 | | | | | | + +-------+ +--------+---+---+ +---+---+ | | | +---+---+ + +-------+ +--------+---+---+ | HYDROmorphone (DILAUDID) | Given | 06/19/19 | 0.4 mg | | | | injection INTRAPROCEDURE PRN, | | 16 2:31 | | | | | Starting 06/19/15 at 1355, | | PM PDT | | | | | Until 06/19/15 at 1503, | | | | | | | sedation | | | | | | + +-------+ +--------+---+---+ +-------+ +--------+---+---+ | Given | 06/19/19 | 0.4 mg | | | | | 16 1:55 | | | | | | PM PDT | | | | +-------+ +--------+---+---+ +---+---+ | | | +---+---+ + +-------+ +-------+---+---+ | lidocaine PF (XYLOCAINE MPF) 20 | Given | 06/19/19 | 60 mg | | | | mg/mL (2 %) injection | | 16 1:12 | | | | | INTRAPROCEDURE PRN, Starting Fri | | PM PDT | | | | | 06/19/15 at 1312, Until 06/19/15 | | | | | | | at 1503 | | | | | | + +-------+ +-------+---+---+ +---+---+ | | | +---+---+ + + [...] | | +---+---+ + +-------+ +------+---+---+ | ondansetron (ZOFRAN) injection | Given | 06/19/19 | 4 mg | | | | INTRAPROCEDURE PRN, Starting Fri | | 16 2:49 | | | | | 06/19/15 at 1449, Until Mon06/19/15 | | PM PDT | | | | | at 1503 | | | | | | + +-------+ +------+---+---+ +---+---+ | | | +---+---+ + +-------+ +---------+---+---+ | PHENYLEPHrine 100 mcg/mL IV | Given | 06/19/19 | 100 mcg | | | | syringe INTRAPROCEDURE PRN, | | 16 2:40 | | | | | Starting Mon06/19/15 at 1326, | | PM PDT | | | | | Until Mon06/19/15 at 1503, blood | | | | | | | pressure | | | | | | + +-------+ +---------+---+---+ +-------+ +---------+---+---+ | Given | 06/19/19 | 50 mcg | | | | | 16 2:16 | | | | | | PM PDT | | | | +-------+ +---------+---+---+ | Given | 06/19/19 | 100 mcg | | | | | 16 1:54 | | | | | | PM PDT | | | | +-------+ +---------+---+---+ +---+---+ | | | +---+---+ + +-------+ +-------+---+---+ | propofol INTRAPROCEDURE PRN, | Given | 06/19/19 | 50 mg | | | | Starting 06/19/15 at 1312, | | 16 1:47 | | | | | Until Mon06/19/15 at 1503 | | PM PDT | | | | + +-------+ +-------+---+---+ +-------+ +-------+---+---+ | Given | 06/19/19 | 30 mg | | | | | 16 1:45 | | | | | | PM PDT | | | | +-------+ +-------+---+---+ | Given | 06/19/19 | 20 mg | | | | | 16 1:43 | | | | | | PM PDT | | | | +-------+ +-------+---+---+ +---+---+ | | | +---+---+ + +-------+ +--------+---+---+ | SUCCINYLCHOLINE CHLORIDE 20 | Given | 06/19/19 | 120 mg | | | | MG/ML INJ (PROSED/RSI) | | 16 1:13 | | | | | INTRAPROCEDURE PRN, Starting Fri | | PM PDT | | | | | 06/19/15 at 1313, Until 06/19/15 | | | | | | | at 1503, Neuromuscular block | | | | | | + +-------+ +--------+---+---+ +---+---+ | | | +---+---+ documented in this encounter"
--- OUTSIDE RECORDS SUMMARY | ~2019-10-06 | XMS | Encounter Summary ---
Demographics + + + | Address | [address] | | | [place] [address] | + + + | Home Phone | | + + + | Preferred Language | Unknown | + + + | Marital Status | | + + + | Confucianism Affiliation | NON | + + + | Race | White | + + + | Ethnic Group | Not or | + + + Author + + + | Author | [facility] | + + + | Organization | [facility] | + + + | [...] [place] | | | | | [address] | | + + + + + Care Team Providers + +------+ + | Care Chrome Plater Helper Name | Role | Phone | + +------+ + | Asael Mendez MD | PCP | | + +------+ + Encounter Details +--------+ + + + + | Date | Type | Department | Care Team | Description | +--------+ + + + + | 05/27/ | Message Clerk | Surgical Oncology | Nikos Mchugh MD | Melanoma (HCC) | | 2016 | | at [facility] [address] | [address] | (Primary Dx) | | | | Ave Center for | [place], [place] | | | | | Health and Healing, | [address] | | | | | Building [address] | [phone] | | | | | [place], [place] | | | | | | [address] | | | | | | [phone] | | | +--------+ + + + [...]
--- OUTSIDE RECORDS SUMMARY | ~2019-10-06 | XMS | Encounter Summary ---
Demographics + + + | Address | [address] | | | [place] [address] | + + + | Home Phone | | + + + | Preferred Language | Unknown | + + + | Marital Status | | + + + | Anabaptist Affiliation | 1069 | + + + | Race | Unknown | + + + | Ethnic Group | Unknown | + + + Author + + + | Author | [facility] | | | and [place] | + + + | Organization | [facility] | | | and [place] | + + + | Address | Unknown | + + + | Phone | Unavailable | + + + Support + + + + + | Name | Relationship | Address | Phone | + + + + + | Mikki Douglass | ECON | [address] [place], [place] | | | | | [address] | | + + + + + | Jameel Douglass | ECON | Unknown | | + + + + + Care Team Providers + +------+ + | Care State Tested Nursing Assistant Name | Role | Phone | + +------+ + PCP | Unavailable | + +------+ + Encounter Details +--------+ + + + + | Date | Type | Department | Care Team | Description | +--------+ + + + + | 10/01/ | Hospital | [facility] | Arely Santana MD | CHEST PAIN NOS | | 2003 - | Encounter | [facility] | [address] | | | | | CLINICAL DECISION | [place] [address] | | | 10/02/ | | [address] [facility] | [phone] | | | 2003 | | [place], [place] | | | | | | [address] | | | | | | [phone] | | | +--------+ + + + [...] + | Diagnosis | + + | Chest pain, unspecified | + + documented in this encounter"
--- OUTSIDE RECORDS SUMMARY | ~2019-10-06 | XMS | Encounter Summary ---
Demographics + + + | Address | [address] | | | [place] [address] | + + + | Home Phone [...] [place] | | | | | [address] | | + + + + + Care Team Providers + +------+ + | Care Sales Account Coordinator Name | Role | Phone | [...] | Medicine Clinic at | [address] | ([facility]) | | | | MPV 4th Floor Day | [address] [place], | | | | | [address] | [place] [address] | | | | | [address] | [phone] | | | | | Mailcode: [id number] | | | | | | [facility] | | | | | | [address] [place], [place] | | | | | | [address] | | | | | | [phone] | | | +--------+---------+ + + + [...] Surgery check-in location: Day Stay Unit - [facility], 4th floor Room 4512 Surgery Check in Time: The Preoperative Medicine [...] it is after office hours, call the [facility] flake or shred roll operator at [phone] and ask them to page him or [...] revealed melanoma. Pertinent medical history: CAD - GA stent placement x 2 (2003), stent placement [...] sleep apnea Uses BiPap/CPAP Cardiovascular: CAD with GA stent placement x 2 (2003) and stent (2004). Last Facility Maintenance Supervisor visit and stress test six years ago - CAD is managed by PCP. Activity: Works out three times per week; treadmill for 15 minutes, walks in pool 20 minute s. Functional Capacity: Moderate - dyspnea on exertion, PND and chest pressure CAD Cad Sx: cardiac stents past GA hypertensi on well controlled Vascular: VASCULAR SYMPTOMS [...] [Doxazosin Mesylate] Unknown Pt does not recall Ydihvbd-Lrv-Ask Reductase Inhibitors Arthralgia Tetracycline Unknown Blisters Tomato [...] He has a history of CAD - GA- stent placeme nt x 2 (2003), stent [...] to this patient's care. Akua Alcantara NP [facility] PREOPER[facility]IVE [facility]INE [facility] 4TH FLOOR DAY STAY [address] [place] [phone] documented in this encou nter Plan of [...] DEPT OF | [address] | [place], [place] | | | CARDIOLOGY | [address] | [address] | | + + + + + [...] [facility] | [address] | [place] [address] | | | SERVICES, CORE | PARK [...] | | | LABORATORY | | | [place] | | | SERVICES, | | | [...] the MDRD equation recommended by the | RISU | | National Kidney Disease Education Program. [...] | + + + + + | [facility] | [address] | [place] [address] | | | LIANNA TALBERT | DAX [...] [facility] | [address] | [place] [address] | | | SERVICES, CORE | PARK [...] | + + + + + | [facility] | [address] | [place] [address] | | | SERVICES, CORE | [address] | | | + + + + + documented in this encounter Visit Diagnoses + + | Diagnosis | + + | Melanoma of scalp (HCC) Malignant melanoma of skin of scalp and neck | + + documented in this encounter
--- OUTSIDE RECORDS SUMMARY | ~2019-10-06 | XMS | Encounter Summary ---
Demographics + + + | Address | [address] | | | [place] [address] | + + + | Home Phone | | + + + | Preferred Language | Unknown | + + + | Marital Status | | + + + | Congregational Affiliation | NON | + + + | Race | White | + + + | Ethnic Group | Not or | + + + Author + + + | Author | [facility] | + + + | Organization | [facility] | + + + | Address | Unknown | + + + | Phone | Unavailable | + + + Support + + + + + | Name | Relationship | Address | Phone | + + + + + | Nancy Douglass | ECON | [address] | | | | | [place] | | | | | [address] | | + + + + + Care Team Providers + +------+ + | Care Produce Runner Name | Role | Phone | + [...] Ave | | | | | [address] [facility] | [place], [place] | | | | | Health and Healing, | [address] | | | | | Building [address] | [phone] | | | | | [place], [place] | | | | | | [address] | | | | | | [phone] | | | +--------+ + + + [...]
--- OUTSIDE RECORDS SUMMARY | ~2019-10-06 | XMS | Encounter Summary ---
Demographics + + + | Address | [address] | | | [place] [address] | + + + | Home Phone | | + + + | Preferred Language | Unknown | + + + | Marital Status | | + + + | Sikhism Affiliation | NON | + + + | Race | White | + + + | Ethnic Group | Not or | + + + Author + + + | Author | [facility] | + + + | Organization | [facility] | + + + | [...] [place] | | | | | [address] | | + + + + + Care Team Providers + +------+ + | Care Calcine Furnace Tender Name | Role | Phone | [...] | | | | Ambulatory Surgery | [place], [place] | | | | | Admitting Desk | [address] | | | | | Located on the [facility] | [phone] | | | | | floor, Room [facility] | | | | | | [place], [place] | Michell Conte, | | | | | [address] | FUN HOUSE OPERATOR [address] | | | | | | [address] | | | | | | [place], [place] | | | | | | [address] | | | | | | [phone] | | | | | | | [...]
--- OUTSIDE RECORDS SUMMARY | ~2019-10-06 | XMS | Encounter Summary ---
Demographics + + + | Address | [address] | | | [place] [address] | + + + | Home Phone | | + + + | Preferred Language | Unknown | + + + | Marital Status | | + + + | Nondenominational Affiliation | 1069 | + + + | Race | Unknown | + + + | Ethnic Group | Unknown | + + + Author + + + | Author | [facility] | | | and [place] | + + + | Organization | [facility] | | | and [place] | + + + | Address | Unknown | + + + | Phone | Unavailable | + + + Support + + + + + | Name | Relationship | Address | Phone | + + + + + | Mikki Douglass | ECON | [place] [place], [place] | | | | | [address] | | + + + + + | Jameel Douglass | ECON | Unknown | | + + + + + Care Team Providers + +------+ + | Care Solutions Development Analyst Name | Role | Phone | + +------+ + | Rosanne White | PCP | | | [place] | | | + +------+ + Encounter Details +--------+ + + + + | Date | Type | Department | Care Team | Description | +--------+ + + + + | 11/24/ | Orders Only | [facility] | Conversion | | | 2016 | | CONVERSION DEP [address] | Transaction, | | | | | [address] | Provider Unknown | | | | | [place], [place] | [phone] | | | | | [address] | | | | | | [phone] | | | +--------+ + + + [...]
--- OUTSIDE RECORDS SUMMARY | ~2019-10-06 | XMS | Encounter Summary ---
Demographics + + + | Address | [address] | | | [place] [address] | + + + | Home Phone | | + + + | Preferred Language | Unknown | + + + | Marital Status | | + + + | Baptism Affiliation | NON | + + + [...] [place] | | | | | [address] | | + + + + + Care Team Providers + +------+ + | Care Cane Stripper Name | Role | Phone | + [...] | | | ([facility]) | [address] | | | | | | [address] | Ave | | | | | | [place], | [place], [place] | | | | | | [place] [address] | [address] | | | | | | Phone: | Phone: | | | | | | [phone] | [phone] | | | | | | Fax: | Fax: | | | | | | [phone] | [phone] | +--------+--------+ + + + + Encounter [...] | | | [facility] | [place], [place] | | | | | [facility] and Healing, | [address] | | | | | Building [address] | [phone] | | | | | [facility] [place] | | | | | | [address] | | | | | | [phone] | | | +--------+---------+ + + + [...] Douglass is a 84 y.o. male from [place] who present ed with a suspicious pigmented lesion of the scalp. This occurred at the site of a prior exc ision. Partial biopsy by Dr Benites was read at [facility] [employer] as melanoma, at least 0.57mm, in radial growth phase, with no ulceration or LVI but 1 miosis/mm2. [facility] Path review confirmed this r eport. The patient now presents s/p wide excision and surgical staging here at [facility] for his T1nN0, IB melanoma. I called [...] [Doxazosin Mesylate] Unknown Pt does not recall Njwptqr-Ylv-Ppi Reductase Inhibitors Arthralgia Tetracycline Unknown Blisters Tomato [...] nodes on either side. SLN sites Ok. title insurance sales representative intact Lungs: clear to auscultation Heart tones [...] differentiated; present at deep margin. Materials Received: [id number] (1 slide, level 1,2, 3) B1 [...] surgical margins of the specimen. Materials Returned: [id number] (1 slide, level 1,2, 3) B1 [...] Right sentinel periparotid nodes SOURCE OF SPECIMEN:B Driscoll nodes right neck level 2 SOURCE OF SPECIMEN:C Wide excision right scalp melanoma SOURCE OF SPECIMEN:D Anterior margin SOURCE OF SPECIMEN:E Posterior margin Final Pathologic Diagnosis: A: Dr[place]coll lymph nodes, right anirudh-parotid, biopsy: - Fibroadipose tissue and salivary gland, negative for malignancy (see comment) B: [place] lymph nodes, right neck level 2, dissection: [...] specimens A and B according to the [facility] sentinel lymph node protocol for melanoma and reveal no metastatic melanoma. Based on the invasive melanoma present only in the prior shave biopsy ([facility] [id number]) and the additional information obtained from [...] developed and its performance characteristics determined by [facility] [employer]. It has not been cleared or approved [...] (pM): Not applicable CXR and LDH negative Durbin Class 1 Assessment: Path stage T1bN0, IB [...] Plastics today Longer term f/u with Dr Benites. 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 RTc prn I performed a history and physical examination of the patient and discussed his management with the resident. I reviewed the resident s note and agree with the documented findings and plan of care. Nikos Mchugh MD SURGICAL ONCOLOGY AT [facility] MailCode L619 [address] [place], [place] [address] Trinh Taylor Md - 06/29 1:20 PM PDT [facility] Department of Surgery [facility] Surgery Clinic Note Author: Trinh [...] negative and LDH was 237. Interval History: Durbin test returned as class 1. Doing well [...] [Doxazosin Mesylate] Unknown Pt does not recall Iuslftb-Lqt-Afp Reductase Inhibitors Arthralgia Tetracycline Unknown Blisters Tomato [...] Right sentinel periparotid nodes SOURCE OF SPECIMEN:B Driscoll nodes right neck level 2 SOURCE OF SPECIMEN:C Wide excision right scalp melanoma SOURCE OF SPECIMEN:D Anterior margin SOURCE OF SPECIMEN:E Posterior margin Final Pathologic Diagnosis: A: Driscoll lymph nodes, right anirudh-parotid, biopsy: - Fibroadipose tissue and salivary gland, negative for malignancy (see comment) B: Driscoll lymph nodes, right neck level 2, dissection: [...] specimens A and B according to the [facility] sentinel lymph node protocol for melanoma and reveal no metastatic melanoma. Based on the invasive melanoma present only in the prior shave biopsy ([facility] [id number]) and the additional information obtained from [...] and 0/4 right level II lymph nodes. Durbin class 1. Dis cussed management of MIS at WE margins, recommended close follow up with dermatology. PLAN: - Close f/u with brush maker Dr. Stefanie Benites This patient was seen in conjunction with Dr. Nikos Mchugh MD, attending physician, who agre es with the above plan. Trinh Bolden MD PGY-1, Department of Surgery Pager [phone] documented in this enco unter Plan of [...]
--- OUTSIDE RECORDS SUMMARY | ~2019-10-06 | XMS | Encounter Summary ---
Demographics + + + | Address | [address] | | | [place] [address] | + + + | Home Phone | | + + + | Preferred Language | Unknown | + + + | Marital Status | | + + + | Muslim Affiliation | NON | + + + | Race | White | + + + | Ethnic Group | Not or | + + + Author + + + | Author | [facility] | + + + | Organization | [facility] | + + + | Address | Unknown | + + + | Phone | Unavailable | + + + Support + + + + + | Name | Relationship | Address | Phone | + + + + + | Nancy Douglass | ECON | [address] | | | | | [place] | | | | | [address] | | + + + + + Care Team Providers + +------+ + | Care Legal Internship Name | Role | Phone | + [...] + + | 06/18/ | Hospital | [facility] [address] | Nikos Mchugh MD | | | 2016 - | Encounter | [address] | [address] | | | | | [facility] | [place], [place] | | | 06/19/ | | [place], [place] | [address] | | | 2015 | | [address] | [phone] | | | | | [phone] | | | +--------+ + + + [...] Admission Date: 06/19/2015 Discharge Date: 06/20/2015 Service: [facility] Surgery Team Summary: 84 yo m w/ hx of with a suspicious pigmented lesion of the scalp. This occurred at the site of a prior excision. Partial biopsy by Dr Benites was read at [facility] as melanoma, at least 0. 57mm, in radial growth phase, with no ulceration or LVI but 1 miosis/mm2, he is T1bN0, stage Ib. He was taken to the operating room on 06/19/2015 and underwent Excision of scalp melanoma with sentinel lymph node biopsy with adjacent tissue transfer repair of right scalp defect (total undermined area of [id number]). He tolerated the procedure well but due [...] risk of constipation will need to take lzpd-avo-twqslug medications to manag e this side effect. [...] Discharging Attending: MD Natalia Alatorre MD Resident, [facility], Dept. of Surgery Pager [phone] documented in this encoun ter Discharge Instructions [...] please call the Facial Plastics Clinic, at [phone] with any ques tions or concerns. Otherwise, you may call the Otolaryngology resident at [phone] for c oncerns, such as difficulty breathing [...] through Care Everywhere.MELANOMA (ENGLI SH)SURGERY: GENERIC: POST-OP (ARABIC)documented in this encounter Medications at Time of [...] plan of care. POD#1. 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 Home today, F/u on 06/29. Nikos Mchugh MD [facility] [address] MailCode L6[address] [place], [place] [address] electronically signed by Nikos Mchugh [...] Salo Elmore MD R-1, Department of Surgery [facility] Pager #[phone] Natalia Mueller MD - 6:02 PM PDTContinues [...] patient was positioned appropriately. The following sales floor team member s were present during the team pause: [...] 06/19/2015 Attending | | Surgeon:Nikos Mchugh MD Physical Plant Manager(s):Natalia Treviño MD, | | resident in Surgery. Preoperative Diagnosis: Melanoma of the right | | parietal scalp.Postoperative Diagnosis: Melanoma of the right parietal scalp.Procedure: | | 1.Preoperative injection Lymphazurin blue dye, right parietal scalp melanoma | | site.2.Wide excision right parietal scalp melanoma 3.5 x 3.5 cm, full thickness down to | | but not including pericranium.3.[place] lymph node biopsy, right periparotid region, | | deep.4.[place] lymph node biopsy, right neck level 2, deep.Specimens: 1.Wide excision | | melanoma, right parietal scalp, 3.5 x 3.5 cm, full thickness down to but not including | | pericranium, oriented for Pathology.2.[place] lymph nodes, sent as a single specimen on | | Telfa, from the right periparotid region.3.[place] lymph nodes, from the right neck | [...] 06/19/2015 15:04:28DT: 06/19/2015 | | 16:18:08Job #: [id number] | | | | | |Nikos Mchugh MD | |UZAIR/ELDER | | | | | | /[id number] | + + PROCEDURE NOTE (06/20/2015 10:45 [...] (total undermined area of | | | [id number]) Anesthesia: General Endotracheal Specimens: | | | [...] | | undermined to a total of [id number] in a subgaleal plane. Deep wound | [...] Luc Rhodes | | | MD Jesica Guest Services Director Facial Plastic and Reconstructive | | | Surgery Department of Otolaryngology/ Head and Neck Surgery Tel:[phone] | | | [phone] [email or web address] | | + + [...] | [facility] | [address] | [place], [place] | | | [facility] | [facility] | [address] | | | TESTS | | | [...] OF | | | | OF SPECIMEN:B [place] | | PATHOLOGY | | | | [...] Diagnosis:A: | | | | | | [place] lymph nodes, | | | | | | right anirudh-parotid, | | | | | | biopsy:- Fibroadipose | | | | | | tissue and salivary | | | | | | gland, negative for | | | | | | malignancy (seecomment) | | | | | | B: [place] | | | | | | lymph [...] the | | | | | | [facility] sentinel lymph node | | | | | | protocol formelanoma | | | | | | and reveal no metastatic | | | | | | melanoma. Based on the | | | | | | invasive melanomapresent | | | | | | only in the prior shave | | | | | | biopsy ([facility] | | | | | [...] | | | | | | [facility] medical | | | | | | care. This test was | | | | | | developed and its | | | | | | performancecharacteristi | | | | | | cs determined by [facility] | | | | | [...] 1/ | | | | | | [id number]: | | | | | | Not [...] | | | | | | (pT): [id number] Lymph | | | | | | Nodes (pN): | | | | | | [id number] Nodes | | | | | | [...] B: | | | | | | [place] nodes right | | | | | [...] nodes:A1B: | | | | | | [place] nodes right | | | | | [...] + + + + + | [facility] | [address] | [place] [address] | | | PATHOLOGY | [address] [...]
--- OUTSIDE RECORDS SUMMARY | ~2019-10-06 | XMS | Encounter Summary ---
Demographics + + + | Address | [address] | | | [place] [address] | + + + | Home Phone | | + + + | Preferred Language | Unknown | + + + | Marital Status | | + + + | Hindu Affiliation | 1069 | + + + | Race | Unknown | + + + | Ethnic Group | Unknown | + + + Author + + + | Author | [facility] | | | and [place] | + + + | Organization | [facility] | | | and [place] | + + + | Address | Unknown | + + + | Phone | Unavailable | + + + Support + + + + + | Name | Relationship | Address | Phone | + + + + + | Mikki Douglass | ECON | [address] [place] | | | | | [address] | | + + + + + | Jameel Douglass | ECON | Unknown | | + + + + + Care Team Providers + +------+ + | Care Computer Systems Support Specialist Name | Role | Phone | + +------+ + | Rosanne White | PCP | | | PA | | | + +------+ + Encounter Details +--------+ + + + + | Date | Type | Department | Care Team | Description | +--------+ + + + + | 03/21/ | Orders Only | [facility] | Conversion | | | 2018 | | CONVERSION [address] | Transaction, | | | | | [address] | Provider Unknown | | | | | [place], [place] | [phone] | | | | | [address] | | | | | | [phone] | | | +--------+ + + + [...]
--- OUTSIDE RECORDS SUMMARY | ~2019-10-06 | XMS | Encounter Summary ---
Demographics + + + | Address | [address] | | | [place] [address] | + + + | Home Phone | | + + + | Preferred Language | Unknown | + + + | Marital Status | | + + + | Restorationist Affiliation | NON | + + + | Race | White | + + + | Ethnic Group | Not or | + + + Author + + + | Author | [facility] | + + + | Organization | [facility] | + + + | [...] [place] | | | | | [address] | | + + + + + Care Team Providers + +------+ + | Care Bag Sorter Name | Role | Phone | + +------+ + | Asael Mendez MD | PCP | | + +------+ + Encounter Details +--------+ + + + + | Date | Type | Department | Care Team | Description | +--------+ + + + + | 06/01/ | Hospital | Radiology/Imaging | | | | 2015 | Encounter | Lab at [facility] [address] | | | | | | [facility] | | | | | | [facility] and He[facility], | | | | | | [facility] | | | | | | Floor [place], [place] | | | | | | [address] | | | | | | [phone] | | | +--------+ + + + [...]
--- OUTSIDE RECORDS SUMMARY | ~2019-10-06 | XMS | Encounter Summary ---
Demographics + + + | Address | [address] | | | [place] [address] | + + + | Home Phone | | + + + | Preferred Language | Unknown | + + + | Marital Status | | + + + | Rastafarian Affiliation | NON | + + + | Race | White | + + + | Ethnic Group | Not or | + + + Author + + + | Author | [facility] | + + + | Organization | [facility] | + + + | Address | Unknown | + + + | Phone | Unavailable | + + + Support + + + + + | Name | Relationship | Address | Phone | + + + + + | Nancy Douglass | ECON | [address] | | | | | [place] | | | | | [address] | | + + + + + Care Team Providers + +------+ + | Care Mechanotherapist Name | Role | Phone | + [...]
--- OUTSIDE RECORDS SUMMARY | ~2019-10-06 | XMS | Encounter Summary ---
Demographics + + + | Address | [address] | | | [place] [address] | + + + | Home Phone | | + + + | Preferred Language | Unknown | + + + | Marital Status | | + + + | Temple Affiliation | 1069 | + + + | Race | Unknown | + + + | Ethnic Group | Unknown | + + + Author + + + | Author | [facility] | | | and [place] | + + + | Organization | [facility] | | | and [place] | + + + | Address | Unknown | + + + | Phone | Unavailable | + + + Support + + + + + | Name | Relationship | Address | Phone | + + + + + | Mikki Douglass | ECON | [address] [place], [place] | | | | | [address] | | + + + + + | Jameel Douglass | ECON | Unknown | | + + + + + Care Team Providers + +------+ + | Care Mapping Supervisor Name | Role | Phone | + +------+ + PCP | Unavailable | + +------+ + Encounter Details +--------+ + + + + | Date | Type | Department | Care Team | Description | +--------+ + + + + | 04/19/ | Hospital | [facility] | Kadeem Whittington | | | 1995 | Encounter | MED CTR SLEEP | MD [address] | | | | | [place] [address] | [address] [place] | | | | | [place], [place] | [place] [address] | | | | | [address] | [phone] | | | | | [phone] | | | +--------+ + + + [...]
--- OUTSIDE RECORDS SUMMARY | ~2019-10-06 | XMS | Encounter Summary ---
Demographics + + + | Address | [address] | | | [place] [address] | + + + | Home Phone | | + + + | Preferred Language | Unknown | + + + | Marital Status | | + + + | Rastafarian Affiliation | 1069 | + + + | Race | Unknown | + + + | Ethnic Group | Unknown | + + + Author + + + | Author | [facility] | | | and [place] | + + + | Organization | [facility] | | | and [place] | + + + | Address | Unknown | + + + | Phone | Unavailable | + + + Support + + + + + | Name | Relationship | Address | Phone | + + + + + | Mikki Douglass | ECON | [address] [place], [place] | | | | | [address] | | + + + + + | Jameel Douglass | ECON | Unknown | | + + + + + Care Team Providers + +------+ + | Care Ict Systems Test Engineer Name | Role | Phone | + +------+ + | Rosanne White | PCP | | | PA | | | + +------+ + Encounter Details +--------+ + + + + | Date | Type | Department | Care Team | Description | +--------+ + + + + | 11/02/ | Orders Only | [facility] | [place], | | | 2018 | | CONVERSION [address] | [address] | | | | | [address] | [place], | | | | | [place], [place] | [place] [address] | | | | | [address] | [phone] | | | | | [phone] | | | +--------+ + + + [...] + +--------+ + + + | ECHO INTERPRETATION | Routin | 11/02/2017 | | Results for this | | OF OUTSIDE FILMS | e | 12:44 PM | | procedure are in the | | | | PDT | | results section. | + +--------+ + + + documented in this encounter Results ECHO Interpretation of Outside Films (11/02/2017 12:44 PM PDT) + + | Specimen | + + | | + + + + + | Impressions | Performed At | + + + | 1. Overall left ventricular systolic function is normal with, an EF | | | between 60 - 65 %. 2. The right ventricular systolic pressure | | | (pulmonary artery systolic pressure), as measured by Doppler, is | | | 41mmHg+5=46mmHg. | | + + + + + + | Narrative | Performed At | + + + | Patient Name: STAN DOUGLASS Date of : 1930 | | | Performing Physician: GIOVANA MISHRA | | | MD | | | INDICATIONS CAD, SLEEP APNEA, SECONDARY PULM HTN | | | CONCLUSIONS 1. Overall left ventricular systolic | | | function is normal with, an EF between 60 - 65 %. 2. The right | | | ventricular systolic pressure (pulmonary artery systolic pressure), as | | | measured by Doppler, is 41mmHg+5=46mmHg. FINDINGS -------- ECG | | | rhythm: Sinus rhythm. Study: A 2-dimensional transthoracic | | | echocardiogram with m-mode, spectral and color flow Doppler was | | | perfomed. Study: This was a technically adequate study. Left | | | Ventricle: Overall left ventricular systolic function is normal with, | | | an EF between 60 - 65 %. Left Ventricle: The left ventricle cavity | | | size is normal. Left Ventricle: Left ventricular wall thickness is | | | normal. Left Ventricle: The diastolic filling pattern is normal for | | | the age of the patient. Right Ventricle: The right ventricle is | | | normal in size and function. Left Atrium: The left atrium is normal | | | in size. Right Atrium: The right atrium is normal in size. Aortic | | | Valve: The aortic valve is mildly calcified. Aortic Valve: There is | | | no evidence of aortic regurgitation. Aortic Valve: There is no | | | evidence of aortic stenosis. Aortic Valve: The aortic valve appears | | | to be trileaflet. Mitral Valve: Normal appearing mitral valve. | | | Mitral Valve: There is trace mitral regurgitation. Tricuspid Valve: | | | The tricuspid valve appears structurally normal. Tricuspid Valve: | | | Mild tricuspid regurgitation present. Tricuspid Valve: The right | | | ventricular systolic pressure (pulmonary artery systolic pressure), as | | | measured by Doppler, is 41mmHg+5=46mmHg. Pulmonic Valve: Pulmonic | | | valve appears structurally normal. Pulmonic Valve: Trace pulmonic | | | regurgitation. Pericardium: There is no pericardial effusion. | | | IVC/Hepatic Veins: The IVC is small (<1.5cm) and collapses with sniff, | | | consistent with central venous pressures of 0-5mmHg. Aorta: The | | | aortic root, ascending aorta and aortic arch are normal. Mass: No | | | mass visualized Thrombus: No clot visualized Thrombus: No vegetation | | | visualized. Septum: No ASD observed. Septum: No VSD observed. | | | MEASUREMENTS Ao sinus: 3.[address] junct: | | | 2.76 cm IVC: 0.93 cm LA Diam: 4.89 cm EDV(Teich): 77.51 ml | | | IVSd: 1.08 cm LVIDd: 4.17 cm LVPWd: 0.91 cm LVOT Area: | | | 3.42 cm2 LVOT Diam: 2.09 cm %FS: 31.30 % EF(Teich): | | | 59.54 % ESV(Teich): 31.35 ml LVIDs: 2.86 cm SV(Teich): | | | 46.15 ml RVIDd: 2.84 cm LVEF MOD A2C: 61.99 % SV MOD A2C: | | | 75.92 ml LVEF MOD A4C: 70.91 % SV MOD A4C: 109.50 ml EF | | | Biplane: 65.71 % LVEDV MOD BP: 140.91 ml LVESV MOD BP: | | | 48.31 ml LVEDV MOD A2C: 122.47 ml LVLd A2C: 9.02 cm LVEDV MOD | | | A4C: 154.41 ml LVLd A4C: 9.56 cm LVESV MOD A2C: 46.54 ml | | | LVLs A2C: 7.72 cm LVESV MOD A4C: 44.91 ml LVLs A4C: 7.53 cm | | | LAESV(A-L): 52.32 ml LAESV Index (A-L): 23.67 ml/m2 LAAs | | | A2C: 14.98 cm2 LAESV A-L A2C: 39.84 ml LALs A2C: 4.78 cm | | | LAAs A4C: 19.67 cm2 LAESV A-L A4C: 64.83 ml LALs A4C: 5.06 | | | cm RAAs: 19.40 cm2 RAESV A-L: 61.49 ml RAESV MOD: 59.51 ml | | | RALs: 5.19 cm AV maxP.25 mmHg AV meanP.10 mmHg | | | AV Vmax: 1.34 m/s AV Vmean: 0.81 m/s AV VTI: 24.64 cm MARIE | | | Vmax: 2.86 cm2 MARIE (VTI): 3.32 cm2 AVAI (Vmax): 0.00 cm2/m2 | | | AVAI (VTI): 0.00 cm2/m2 LVOT maxP.06 mmHg LVOT meanPG: | | | 2.42 mmHg LVSI Dopp: 37.12 ml/m2 LVSV Dopp: 82.03 ml LVOT | | | Vmax: 1.12 m/s LVOT Vmean: 0.70 m/s LVOT VTI: 23.91 cm MV | | | A Edd: 0.64 m/s MV Dec Oxford: 1.66 m/s2 MV DecT: 335.43 ms | | | MV E Edd: 0.55 m/s MV E/A Ratio: 0.86 MV PHT: 97.27 ms | | | MVA By PHT: 2.26 cm2 Septal e': 0.07 m/s Septal E/e': 7.78 | | | Lateral e': 0.07 m/s Lateral E/e': 7.48 TR maxP.24 | | | mmHg TR Vmax: 3.21 m/s Director Franchise Sales: LIUDMILA Authenticated by: | | | GIOVANA MISHRA MD Report Date/Time: -- 26_[id number]:18:49 | | + + + + + | Procedure Note | + + | Hari, Rad Conversion - 11/01/2018 3:10 PM PDT Patient Name: Cruz DOUGLASS | | of : 1930 Performing Physician: GIOVANA MISHRA | | MD INDICATIONS C | | AD, SLEEP APNEA, SECONDARY PULM HTN CONCLUSIONS 1. Overall left ventricular | | systolic function is normal with, an EF between 60 - 65 %.2. The right ventricular | | systolic pressure (pulmonary artery systolic pressure), as measured by Doppler, is | | 41mmHg+5=46mmHg. FINDINGS--------ECG rhythm: Sinus rhythm.Study: A 2-dimensional | | transthoracic echocardiogram with m-mode, spectral and color flow Doppler was | | perfomed.Study: This was a technically adequate study.Left Ventricle: Overall left | | ventricular systolic function is normal with, an EF between 60 - 65 %.Left Ventricle: | | The left ventricle cavity size is normal.Left Ventricle: Left ventricular wall thickness | | is normal.Left Ventricle: The diastolic filling pattern is normal for the age of the | | patient.Right Ventricle: The right ventricle is normal in size and function.Left Atrium: | | The left atrium is normal in size.Right Atrium: The right atrium is normal in | | size.Aortic Valve: The aortic valve is mildly calcified.Aortic Valve: There is no | | evidence of aortic regurgitation.Aortic Valve: There is no evidence of aortic | | stenosis.Aortic Valve: The aortic valve appears to be trileaflet.Mitral Valve: Normal | | appearing mitral valve.Mitral Valve: There is trace mitral regurgitation.Tricuspid | | Valve: The tricuspid valve appears structurally normal.Tricuspid Valve: Mild tricuspid | | regurgitation present.Tricuspid Valve: The right ventricular systolic pressure | | (pulmonary artery systolic pressure), as measured by Doppler, is | | 41mmHg+5=46mmHg.Pulmonic Valve: Pulmonic valve appears structurally normal.Pulmonic | | Valve: Trace pulmonic regurgitation.Pericardium: There is no pericardial | | effusion.IVC/Hepatic Veins: The IVC is small (<1.5cm) and collapses with sniff, | | consistent with central venous pressures of 0-5mmHg.Aorta: The aortic root, ascending | | aorta and aortic arch are normal.Mass: No mass visualizedThrombus: No clot | | visualizedThrombus: No vegetation visualized.Septum: No ASD observed.Septum: No VSD | | observed. MEASUREMENTS Ao sinus: 3.[address] junct: 2.76 cmIVC: 0.93 | | cmLA Diam: 4.89 cmEDV(Teich): 77.51 mlIVSd: 1.08 cmLVIDd: 4.17 cmLVPWd: 0.91 | | cmLVOT Area: 3.42 [id number] Diam: 2.09 cm%FS: 31.30 %EF(Teich): 59.54 %ESV(Teich): | | 31.35 mlLVIDs: 2.86 cmSV(Teich): 46.15 mlRVIDd: 2.84 cmLVEF MOD A2C: 61.99 | | %SV MOD A2C: 75.92 mlLVEF MOD A4C: 70.91 %SV MOD A4C: 109.50 mlEF Biplane: 65.71 | | %LVEDV MOD BP: 140.91 mlLVESV MOD BP: 48.31 mlLVEDV MOD A2C: 122.47 mlLVLd A2C: | | 9.02 cmLVEDV MOD A4C: 154.41 mlLVLd A4C: 9.56 cmLVESV MOD A2C: 46.54 mlLVLs A2C: | | 7.72 cmLVESV MOD A4C: 44.91 mlLVLs A4C: 7.53 cmLAESV(A-L): 52.32 mlLAESV Index | | (A-L): 23.67 ml/m2LAAs A2C: 14.98 [id number] A-L A2C: 39.84 mlLALs A2C: 4.78 | | cmLAAs A4C: 19.67 wo7FCSGB A-L A4C: 64.83 mlLALs A4C: 5.06 cmRAAs: 19.40 | | [id number] A-L: 61.49 mlRAESV MOD: 59.51 mlRALs: 5.19 cmAV maxP.25 mmHgAV | | meanP.10 mmHgAV Vmax: 1.34 m/Angelica Vmean: 0.81 m/Angelica VTI: 24.64 cmAVA Vmax: | | 2.86 cm2AVA (VTI): 3.32 fp8TGMD (Vmax): 0.00 cm2/m2AVAI (VTI): 0.00 cm2/m2LVOT | | maxP.06 mmHgLVOT meanP.42 mmHgLVSI Dopp: 37.12 ml/m2LVSV Dopp: 82.03 | | mlLVOT Vmax: 1.12 m/sLVOT Vmean: 0.70 m/sLVOT VTI: 23.91 cmMV A Edd: 0.64 m/sMV | | Dec Oxford: 1.66 m/s2MV DecT: 335.43 msMV E Edd: 0.55 m/sMV E/A Ratio: 0.86MV | | PHT: 97.27 msMVA By PHT: 2.26 dw4Azikis e': 0.07 m/sSeptal E/e': 7.78Lateral e': | | 0.07 m/sLateral E/e': 7.48TR maxP.24 mmHgTR Vmax: 3.21 m/s Director Franchise Sales: | | DBSAuthenticated by: GIOVANA MISHRA MDRepravi Date/Time: -- 34_07-5-1731_77:18:49 | | IMPRESSION: 1. Overall left ventricular systolic function is normal with, an EF between | | 60 - 65 %.2. The right ventricular systolic pressure (pulmonary artery systolic | | pressure), as measured by Doppler, is 41mmHg+5=46mmHg. | |MEASUREMENTS | | | |Ao sinus: 3.45 cm | |Ao st junct: 2.76 cm | |IVC: 0.93 cm | |LA Diam: 4.89 cm | |EDV(Teich): 77.51 ml | |IVSd: 1.08 cm | |LVIDd: 4.17 cm | |LVPWd: 0.91 cm | |LVOT Area: 3.42 cm2 | |LVOT Diam: 2.09 cm | |%FS: 31.30 % | |EF(Teich): 59.54 % | |ESV(Teich): 31.35 ml | |LVIDs: 2.86 cm | |SV(Teich): 46.15 ml | |RVIDd: 2.84 cm | |LVEF MOD A2C: 61.99 % | |SV MOD A2C: 75.92 ml | |LVEF MOD A4C: 70.91 % | |SV MOD A4C: 109.50 ml | |EF Biplane: 65.71 % | |LVEDV MOD BP: 140.91 ml | |LVESV MOD BP: 48.31 ml | |LVEDV MOD A2C: 122.47 ml | |LVLd A2C: 9.02 cm | |LVEDV MOD A4C: 154.41 ml | |LVLd A4C: 9.56 cm | |LVESV MOD A2C: 46.54 ml | |LVLs A2C: 7.72 cm | |LVESV MOD A4C: 44.91 ml | |LVLs A4C: 7.53 cm | |LAESV(A-L): 52.32 ml | |LAESV Index (A-L): 23.67 ml/m2 | |LAAs A2C: 14.98 cm2 | |LAESV A-L A2C: 39.84 ml | |LALs A2C: 4.78 cm | |LAAs A4C: 19.67 cm2 | |LAESV A-L A4C: 64.83 ml | |LALs A4C: 5.06 cm | |RAAs: 19.40 cm2 | |RAESV A-L: 61.49 ml | |RAESV MOD: 59.51 ml | |RALs: 5.19 cm | |AV maxP.25 mmHg | |AV meanP.10 mmHg | |AV Vmax: 1.34 m/s | |AV Vmean: 0.81 m/s | |AV VTI: 24.64 cm | |MARIE Vmax: 2.86 cm2 | |MARIE (VTI): 3.32 cm2 | |AVAI (Vmax): 0.00 cm2/m2 | |AVAI (VTI): 0.00 cm2/m2 | |LVOT maxP.06 mmHg | |LVOT meanP.42 mmHg | |LVSI Dopp: 37.12 ml/m2 | |LVSV Dopp: 82.03 ml | |LVOT Vmax: 1.12 m/s | |LVOT Vmean: 0.70 m/s | |LVOT VTI: 23.91 cm | |MV A Edd: 0.64 m/s | |MV Dec Oxford: 1.66 m/s2 | |MV DecT: 335.43 ms | |MV E Edd: 0.55 m/s | |MV E/A Ratio: 0.86 | |MV PHT: 97.27 ms | |MVA By PHT: 2.26 cm2 | |Septal e': 0.07 m/s | |Septal E/e': 7.78 | |Lateral e': 0.07 m/s | |Lateral E/e': 7.48 | |TR maxP.24 mmHg | |TR Vmax: 3.21 m/s | | | |Director Franchise Sales: DBS | |Authenticated by: GIOVANA MISHRA MD | |Report Date/Time: -- 09_99-5-0712_74:18:49 | | | |IMPRESSION: | |1. Overall left ventricular systolic function is normal with, an EF between 60 - 65 %. | |2. The right ventricular systolic pressure (pulmonary artery systolic pressure), as measure d by Doppler, is 41mmHg+5=46mmHg. | + + documented in this encounter Visit Diagnoses Not on filedocumented in this encounter"
--- OUTSIDE RECORDS SUMMARY | ~2019-10-06 | XMS | Clinical Summary ---
Demographics + + + | Address | [address] | | | [place] [address] | + + + | Home Phone | | + + + | Preferred Language | Unknown | + + + | Marital Status | | + + + | Amish Affiliation | NON | + + + | Race | White | + + + | Ethnic Group | Not or | + + + Author + + + | Author | [facility] | + + + | Organization | [facility] | + [...] [place] | | | | | [address] | | + + + + + Care Team Providers + +------+ + | Care Nuclear Medicine Officer Name | Role | Phone | + +------+ + | Asael Mendez MD | PCP | | + +------+ + Source Comments JENNIFER is fully live on both [facility] and [facility] Allergies + + + + + + | Active Allergy | Reactions | Severity | Noted | Comments | | | | | Date | | + + + + + + | Doxazosin Mesylate | Unknown | | 06/02/19 | Pt does not recall | | | | | 16 | | + + + + + + | Dgkqhux-Jqk-Ybt | Arthralgia | | 06/02/19 | | [...] | | | | | | | [address] | | + +--------+ +--------+ + +--------+ | MODA MEDICARE | MODA | xxxxxxxxx | 03/13/19 | [phone] | [address] | [address] | | SUPPLEMENT | MEDICA | | 14-Pre | 4 | [id number] | | | | RE | | sent | | [place], | | | | SUPPLE | | | | [place] [address] | | | | MENT | | [...] | [birth year] | | [address] | | | al/Fam | | 1931 | [phone] | [place] [address] | | | janet | | | 9 (Home) | | | | | | | [phone] | | | | | | | [...]
--- OUTSIDE RECORDS SUMMARY | ~2019-10-06 | XMS | Encounter Summary ---
Demographics + + + | Address | [address] | | | [place] [address] | + + + | Home Phone | | + + + | Preferred Language | Unknown | + + + | Marital Status | | + + + | Sikh Affiliation | 1069 | + + + | Race | Unknown | + + + | Ethnic Group | Unknown | + + + Author + + + | Author | [facility] | | | and [place] | + + + | Organization | [facility] | | | and [place] | + + + | Address | Unknown | + + + | Phone | Unavailable | + + + Support + + + + + | Name | Relationship | Address | Phone | + + + + + | Mikki Douglass | ECON | [address] [place], [place] | | | | | [address] | | + + + + + | Jameel Douglass | ECON | Unknown | | + + + + + Care Team Providers + +------+ + | Care Housekeeper Cleaning Cooking Name | Role | Phone | + +------+ + PCP | Unavailable | + +------+ + Encounter Details +--------+ + + + + | Date | Type | Department | Care Team | Description | +--------+ + + + + | 11/24/ | Hospital | [facility] | Conversion | Pain | | 2016 | Encounter | CONVERSION [address] | Transaction, | | | | | [address] | Provider Unknown | | | | | [place], [place] | [phone] | | | | | [address] | | | | | | [phone] | | | +--------+ + + + [...] | + +--------+ + + + | XR CHEST 1 VIEW | Routin | 11/25/2015 | | Results for this | | | e | 12:15 PM | | procedure are in the | | | | PDT | | results section. | + +--------+ + + + documented in this encounter Results XR Chest 1 Vw (11/25/2015 12:15 PM PDT) + + | Specimen | + + | | + + + + + | Narrative | Performed At | + + + | This is a non-reportable procedure without a radiologist report and | | | is used for image storage only | | + + + + + | Procedure Note | + + | Booker Noriega - 10/25/2018 11:12 AM PDT This is a non-reportable procedure | | without a radiologist report and isused for image storage only | + + documented in this encounter Visit Diagnoses + + | Diagnosis | + + | Pain Generalized pain | + + documented in this encounter"
--- OUTSIDE RECORDS SUMMARY | ~2019-10-06 | XMS | Encounter Summary ---
Demographics + + + | Address | [address] | | | [place] [address] | + + + | Home Phone | | + + + | Preferred Language | Unknown | + + + | Marital Status | | + + + | Congregational Affiliation | NON | + + + | Race | White | + + + | Ethnic Group | Not or | + + + Author + + + | Author | [facility] | + + + | Organization | [facility] | + + + | Address | Unknown | + + + | Phone | Unavailable | + + + Support + + + + + | Name | Relationship | Address | Phone | + + + + + | Nancy Douglass | ECON | [address] | | | | | [place] | | | | | [address] | | + + + + + Care Team Providers + +------+ + | Care Circular Gang Saw Operator Name | Role | Phone | [...] | | | | | | scalp ([facility]) | [address] | | | | | | Procedures | Ave | | | | | | [place] | [place], [place] | | | | | | LYMPHATICS | [address] | | | | | | MAPPING | Phone: | | | | | | | [phone] | | | | | | | Fax: | | | | | | | [phone] | | +--------+--------+ + + + + [...] | | 2016 | Encounter | at [facility] [address] | | | | | | [address] | | | | | | [place], | | | | | | Basement [place], | | | | | | [place] [address] | | | | | | [phone] | | | +--------+ + + + [...] | | + +---------+ + + | [facility] DEPARTMENT OF | | | | | [...]
[~2019-10-06 11:43] MED LIST changes: +NORCO 5-325 TA1 EACH PO
--- NOTE | 2019-10-07 16:32 | EKG ---
[facility] [address] [place] [address] Signed Normal sinus rhythm Rightward axis ST \T\ T wave abnormality, consider lateral ischemia Abnormal ECG When compared with ECG of 30-MAR-2017 10:26, MD interval has decreased ST now depressed in Anterolateral leads Confirmed by TISHA SANFORD MD ([id number]) on 10/07/2019 4:32:00 PM Electronically Signed By: TISHA SANFORD MD 10/07/19 1632 PATIENT NAME: KEVIN MALDONADO Electrocardiogram DATE OF : 30 PHYSICIAN: TISHA SANFORD MD REPORT #: [id number] REPORT IS CONFIDENTIAL AND NOT TO BE RELEASED WITHOUT AUTHORIZATION
== END 2019-10-06 16:11 | disposition short-term general hospital (02) ==
LOC: ED 11:43
DX: I21.4 Non-ST elevation (NSTEMI) myocardial infarction (principal); I25.10 Atherosclerotic heart disease of native coronary artery without angina pectoris; I10 Essential (primary) hypertension; Z87.891 Personal history of nicotine dependence; Z88.8 Allergy status to other drugs, medicaments and biological substances; Z91.018 Allergy to other foods; Z88.0 Allergy status to penicillin; Z88.1 Allergy status to other antibiotic agents; Z79.01 Long term (current) use of anticoagulants; Z79.899 Other long term (current) drug therapy
CPT/HCPCS: 71045; 80053; 82550; 82553; 83735; 83874; 84484; 85025; 93005; 93010; 96374; 99285-25; J1644

== ENCOUNTER 2020-02-11 11:44 | Emergency (ER) | payer MEDICARE, OTHER ==
[~2020-02-11] VITALS: Ht 182.9 cm; Wt 90.8 kg
[~2020-02-11 11:44] MED LIST changes: +AMIODARONE HCL400 MG PO; +ARTHRITIS PAIN650 MG PO; +CLOPIDOGREL75 MG PO; +COLACE100 MG PO; +ELIQUIS2.5 MG PO; -FUROSEMIDE20 MG PO; +FUROSEMIDE40 MG PO; +GLIPIZIDE5 MG PO; +LISINOPRIL2.5 MG PO; +METOPROLOL SUCC50 MG PO; +MUCINEX1200 MG PO; +OXYCODONE HCL5 MG PO; +PANTOPRAZOLE SO40 MG PO; +SENNA8.6 MG PO; +TUMS200 MG PO; +XOPENEX1.25 MG/3 INH
[2020-02-11] MEDS ORDERED: GABAPENTIN100 MG PO (12:07)
--- NOTE | 2020-02-11 13:55 | EKG ---
[facility] [address] [place], [place] [address] Signed Normal sinus rhythm Normal ECG No previous ECGs available Confirmed by LANRE ARENAS DO ([id number]) on 02/11/2020 1:55:28 PM Electronically Signed By: LANRE ARENAS DO 02/11/20 1355 PATIENT NAME: KEVIN MALDONADO Electrocardiogram DATE OF : [birth year] PHYSICIAN: LANRE ARENAS DO REPORT #: [id number] REPORT IS CONFIDENTIAL AND NOT TO BE RELEASED WITHOUT AUTHORIZATION
== END 2020-02-11 16:42 | disposition home or self-care (01) ==
LOC: ED 11:44
DX: R41.0 Disorientation, unspecified (principal); Z20.828 Contact with and (suspected) exposure to other viral communicable diseases; I10 Essential (primary) hypertension; G47.30 Sleep apnea, unspecified; Z87.891 Personal history of nicotine dependence; Z88.8 Allergy status to other drugs, medicaments and biological substances; Z88.0 Allergy status to penicillin; Z88.1 Allergy status to other antibiotic agents; Z79.899 Other long term (current) drug therapy; Z91.018 Allergy to other foods
CPT/HCPCS: 70450; 71045; 80053; 81001; 83735; 84484; 85025; 93005; 93010; 99285-25; C9803; U0003

== ENCOUNTER 2020-10-15 07:17 | Emergency (ER) | payer MEDICARE, OTHER ==
[~2020-10-15] VITALS: Ht 182.9 cm; Wt 90.7 kg
[~2020-10-15 07:17] MED LIST changes: +GABAPENTIN100 MG PO
--- OUTSIDE RECORDS SUMMARY | 2020-10-15 07:18 | XMS ---
PreManage Notification: KEVIN MALDONADO Security Rn Sane Events No recent Security Events currently on file CRITERIA MET - [facility] CARE PROVIDERS [facility] Snf Facility [facility] EVS [employer] [facility]. \F\ [facility] PHONE: [phone] TISHA SANFORD Internal Medicine Current PHONE: [phone] IDANIA CLEMENTS [facility] Current PHONE: [phone] Konstantin has no Care Guidelines for this patient. Care History Medical/Surgical 11/05/2019 [facility] - Patient is currently established with [facility]. If patient is seen in the ED during business hours. Please contact CHWs at [facility]. Care Recommendation: If this patient has had 5 or more Emergency Department visits in the last 12 months.\T\nbsp; Patient will require education on the scope and purpose of the ED as an acute care provider not a Primary Care Provider and should not be utilized for chronic conditions.\T\nbsp; These are guidelines and the provider should exercise clinical judgment when providing care. E.D. VISIT COUNT (12 MO.) 1 [facility] 3 ASHKAN Panchal TOTAL 4 NOTE: Visits indicate total known visits. ED/C VISIT TRACKING (12 MO.) 10/15/2020 07:17 [facility] [place] TYPE: Emergency COMPLAINT: - CHEST PAIN 02/11/2020 11:45 [facility] [place] TYPE: Emergency COMPLAINT: - POSS STROKE DIAGNOSES: - Disorientation, unspecified - Allergy status to penicillin - Contact with and (suspected) exposure to other viral communicable diseases - Sleep apnea, unspecified - Allergy status to other antibiotic agents - Chest pain, unspecified - Allergy to other foods - Allergy status to other drugs, medicaments and biological substances - Other manager long term care (current) drug therapy - Essential (primary) hypertension - Personal history of nicotine dependence 11/04/2019 20:39 [facility] TYPE: Emergency COMPLAINT: - WEAKNESS 10/19/2019 22:37 [facility] TYPE: Emergency DIAGNOSES: - Shortness of Breath - Shortness of breath - Pleural effusion, not elsewhere classified - Heart failure, unspecified INPATIENT VISIT TRACKING (12 MO.) 11/04/2019 20:40 [facility] [place] TYPE: Observation COMPLAINT: - SYNCOPE VOLUME DEPLETION DIAGNOSES: - Personal history of pulmonary embolism - Allergy status to other antibiotic agents - Other nonmedicinal substance allergy status - Allergy status to penicillin - Atherosclerotic heart disease of [place] coronary artery without angina pectoris - residential (current) use of anticoagulants - tank terminal gauger (current) use of oral hypoglycemic drugs - Hypertensive heart and chronic kidney disease with heart failure and stage 1 through stage 4 chronic kidney disease, or unspecified chronic kidney disease - Paroxysmal atrial fibrillation - Acute kidney failure, unspecified - Chronic diastolic (congestive) heart failure - Allergy to other foods - Other fatigue - Orthostatic hypotension - Other manager long term care (current) drug therapy - Contact with and (suspected) exposure to other viral communicable diseases - Dehydration - Chronic kidney disease, stage 3 (moderate) - Presence of aortocoronary bypass graft [facility]19/2019 22:[facility] TYPE: Internal Medicine DIAGNOSES: - Heart failure, unspecified - Atherosclerotic heart disease of [place] coronary artery with unstable angina pectoris - Shortness of breath - Acute diastolic (congestive) heart failure - Pleural effusion, not elsewhere classified - Paroxysmal atrial fibrillation - Other primary thrombophilia - Atherosclerotic heart disease of [place] coronary artery without angina pectoris - Essential (primary) hypertension - Presence of aortocoronary bypass graft - Non-ST elevation (NSTEMI) myocardial infarction - Obstructive sleep apnea (adult) (pediatric) - Chronic kidney disease, stage 3 (moderate) [email or web address]
[2020-10-15] MEDS ORDERED: AMLODIPINE BESYL5 MG PO (07:38)
[2020-10-15] MEDS ORDERED: ALLOPURINOL100 MG PO (07:38)
[2020-10-15] MEDS ORDERED: FUROSEMIDE40 MG PO (07:39)
[2020-10-15] MEDS ORDERED: OMEPRAZOLE20 MG PO (07:40)
[2020-10-15] MEDS ORDERED: POTASSIUM CHLO20 ME2 PO (07:40)
[2020-10-15] MEDS ORDERED: VENTOLIN HFA18 GM INH (10:59)
[2020-10-15] MEDS ORDERED: PREDNISONE20 MG PO (10:59)
--- NOTE | 2020-10-17 08:59 | EKG ---
[facility] [address] [place] [address] Signed Sinus rhythm with premature atrial complexes Rightward axis Borderline ECG Confirmed by TISHA SANFORD MD ([id number]) on 10/17/2020 8:59:19 AM Electronically Signed By: TISHA SANFORD MD 10/17/20 0859 PATIENT NAME: KEVIN MALDONADO Electrocardiogram DATE OF : 30 PHYSICIAN: TISHA SANFORD MD REPORT #: [id number] REPORT IS CONFIDENTIAL AND NOT TO BE RELEASED WITHOUT AUTHORIZATION
== END 2020-10-15 11:13 | disposition home or self-care (01) ==
LOC: ED 07:17
DX: U07.1 COVID-19 (principal); R07.89 Other chest pain; I10 Essential (primary) hypertension; G47.30 Sleep apnea, unspecified; Z87.891 Personal history of nicotine dependence; Z88.8 Allergy status to other drugs, medicaments and biological substances; Z88.1 Allergy status to other antibiotic agents; Z88.0 Allergy status to penicillin; Z91.018 Allergy to other foods; Z79.899 Other long term (current) drug therapy
CPT/HCPCS: 71045; 71260; 80053; 84484; 85025; 93005; 93010; 94640; 99285-25; C9803; J1100; J2270; Q9967; U0003